=== PATIENT | male | born 1950 | race African-American/Black ===

== ENCOUNTER → 2016-05-25 | Outpatient (CLI) | payer MEDICARE, MEDICAID ==
[~2016-05-25] VITALS: Ht 170.2 cm; Wt 67.6 kg
[~2016-05-25] MED LIST: ALPR1TAB6 PO; AMLO10TA2 PO; AMLO2.5T PO; AMLO5TAB2 PO; AMOX1TAB11 PO; ATOR10TA60 PO; BACL10TA PO; BUPR150T11 PO; CLOT15CR3 TP; HEPARIN PF 500 UNIT/5 ML DISP.SYRIN. IV ONE; HYDR-2672 PO; MUPI22OI2 TP; OMEP20CA5 PO; OMEP40CA5 PO; ONDA4TAB10 SL; SERT50TA PO; TAMS0.4C97 PO; TRAZ50TA15 PO; VALA500T5 PO; Vancomycin Hcl PO; ZOLP10TA PO; flomax PO
[2016-05-25 12:06] VITALS: BP 113/67
[2016-05-25 13:34] VITALS: BP 108/61
[2016-05-25 13:47] VITALS: BP 111/60
== END | disposition home or self-care (01) ==
LOC: OPS 11:24
PROVIDERS: ATTEND Internal Medicine Hematology & Oncology
DX: D46.9 Myelodysplastic syndrome, unspecified (principal)
CPT/HCPCS: 36415; 36430; 86850; 86900; 86901; P9035

== ENCOUNTER → 2016-06-03 | Outpatient (CLI) | payer MEDICARE, MEDICAID ==
[2016-06-03 11:44] VITALS: BP 117/67
[2016-06-03 12:03] VITALS: BP 114/56
[2016-06-03 12:47] VITALS: BP 121/61
== END | disposition home or self-care (01) ==
LOC: OPS 08:51
PROVIDERS: ATTEND Internal Medicine Hematology & Oncology
DX: D46.9 Myelodysplastic syndrome, unspecified (principal)
CPT/HCPCS: 36415; 36430; 85049; 86850; 86900; 86901; P9035

== ENCOUNTER → 2016-06-10 | Outpatient (CLI) | payer MEDICARE, MEDICAID ==
[2016-06-10 14:05] VITALS: BP 116/69
[2016-06-10 14:20] VITALS: BP 113/59
[2016-06-10 14:50] VITALS: BP 118/62
== END | disposition home or self-care (01) ==
LOC: OPS 12:13
PROVIDERS: ATTEND Internal Medicine Hematology & Oncology
DX: D46.9 Myelodysplastic syndrome, unspecified (principal)
CPT/HCPCS: 36415; 36430; 36591; 85049; 86850; 86900; 86901; P9035

== ENCOUNTER → 2016-06-28 | Outpatient (CLI) | payer MEDICARE, MEDICAID ==
[2016-06-28 13:01] VITALS: BP 111/70
[2016-06-28 13:50] VITALS: BP 118/71
[2016-06-28 14:19] VITALS: BP 111/68
== END | disposition home or self-care (01) ==
LOC: OPS 12:32
PROVIDERS: ATTEND Internal Medicine Hematology & Oncology
DX: D46.9 Myelodysplastic syndrome, unspecified (principal)
CPT/HCPCS: 36415; 36430; 85049; 86850; 86900; 86901; P9035

== ENCOUNTER → 2016-07-06 | Outpatient (CLI) | payer MEDICARE, MEDICAID ==
[2016-07-06 08:30] VITALS: BP 123/68
[2016-07-06 10:18] VITALS: BP 124/64
[2016-07-06 10:42] VITALS: BP 115/67
== END | disposition home or self-care (01) ==
LOC: OPS 07:57
PROVIDERS: ATTEND Internal Medicine Hematology & Oncology
DX: D46.9 Myelodysplastic syndrome, unspecified (principal)
CPT/HCPCS: 36415; 36430; 85049; 86850; 86900; 86901; P9035

== ENCOUNTER → 2016-07-19 | Outpatient (CLI) | payer MEDICARE, MEDICAID ==
[~2016-07-19] MED LIST changes: +TRAZ100T12 PO
[2016-07-19 13:40] VITALS: BP 118/67
[2016-07-19 14:35] VITALS: BP 120/66
[2016-07-19 15:12] VITALS: BP 123/62
== END | disposition home or self-care (01) ==
LOC: OPS 12:34
PROVIDERS: ATTEND Internal Medicine Hematology & Oncology
DX: D46.9 Myelodysplastic syndrome, unspecified (principal)
CPT/HCPCS: 36415; 36430; 85049; 86850; 86900; 86901; P9035

== ENCOUNTER → 2016-08-02 | Outpatient (CLI) | payer MEDICARE, MEDICAID ==
[2016-08-02 12:42] VITALS: BP 112/71
[2016-08-02 14:13] VITALS: BP 126/85
== END | disposition home or self-care (01) ==
LOC: OPS 11:32
PROVIDERS: ATTEND Nurse Practitioner Adult Health
DX: D46.9 Myelodysplastic syndrome, unspecified (principal)
CPT/HCPCS: 36415; 36430; 36591; 85049; 86850; 86900; 86901; 96523; P9035

== ENCOUNTER → 2016-08-16 | Outpatient (CLI) | payer MEDICARE, MEDICAID ==
[2016-08-16 11:24] VITALS: BP 122/65
[2016-08-16 13:10] VITALS: BP 133/61
[2016-08-16 13:43] VITALS: BP 139/62
== END | disposition home or self-care (01) ==
LOC: OPS 11:11
PROVIDERS: ATTEND Internal Medicine Hematology & Oncology
DX: D46.9 Myelodysplastic syndrome, unspecified (principal)
CPT/HCPCS: 36415; 36430; 36591; 85049; 86850; 86900; 86901; 96523; P9035

== ENCOUNTER → 2016-09-06 | Outpatient (CLI) | payer MEDICARE, MEDICAID ==
[2016-09-06 14:34] VITALS: BP 139/69
== END | disposition home or self-care (01) ==
LOC: OPS 11:59
PROVIDERS: ATTEND Internal Medicine Hematology & Oncology
DX: D46.9 Myelodysplastic syndrome, unspecified (principal)
CPT/HCPCS: 36415; 36430; 85049; 86850; 86900; 86901; P9035

== ENCOUNTER → 2016-09-20 | Outpatient (CLI) | payer MEDICARE, MEDICAID ==
[2016-09-20 10:58] VITALS: BP 117/65
[2016-09-20 13:32] VITALS: BP 104/58
[2016-09-20 13:39] VITALS: BP 109/54
== END | disposition home or self-care (01) ==
LOC: OPS 10:28
PROVIDERS: ATTEND Internal Medicine Hematology & Oncology
DX: D46.9 Myelodysplastic syndrome, unspecified (principal)
CPT/HCPCS: 36415; 36430; 85049; 86850; 86900; 86901; 96523; P9035

== ENCOUNTER 2016-12-05 21:33 | Inpatient (IN) | payer MEDICARE, MEDICAID ==
[~2016-12-05] VITALS: Ht 172.7 cm; Wt 77.6 kg
[~2016-12-05 21:33] MED LIST changes: -HEPARIN PF 500 UNIT/5 ML DISP.SYRIN. IV ONE; -HYDR-2672 PO; +HYDR-2766 PO
[2016-12-05] MEDS ORDERED: IV NORMAL SALINE 1000ML BAG 1,000 ML IV ONE (22:00)
[2016-12-05 22:19] LABS: BASO # 0.1 x10^3/uL (0.0-0.2); BASO % 1 % (0-3); EOS % 1 % (0-3); LYMPH # 0.7 x10^3/uL (1.0-4.8); LYMPH % 9 % (24-48); MEAN CORPUSCULAR HEMOGLOBIN 39 pg (25-35); MEAN CORPUSCULAR HGB CONC 33 g/dL (31-37); MEAN CORPUSCULAR VOLUME 119 fL (79-100); MONO % 1 % (0-9); NEUT % 88 % (31-73); RED BLOOD COUNT 1.52 x10^6/uL (4.30-5.70); RED CELL DISTRIBUTION WIDTH 22.3 % (11.5-14.5); WHITE BLOOD COUNT 7.5 x10^3/uL (4.0-11.0)
[2016-12-05 22:26] LABS: HEMATOCRIT 18.1 % (39.0-53.0); HEMOGLOBIN 5.9 g/dL (13.0-17.5); PLATELET COUNT 24 x10^3/uL (140-400)
[2016-12-05 22:27] LABS: INR 1.2 (0.8-1.1)
[2016-12-05 22:39] LABS: CALCIUM 9.1 mg/dL (8.5-10.1); CREATININE 1.1 mg/dL (0.7-1.3); GFR 80.5; POTASSIUM 4.3 mmol/L (3.5-5.1)
--- NOTE | 2016-12-05 22:44 | PHYS DOC ---
Past Medical History Past Medical History: Arthritis, GERD, High Cholesterol, Hypertension Additional Past Medical Histor: MDS Past Surgical History: Other Additional Past Surgical Histo: R CHEST PORT PLACEMENT Alcohol Use: Occasionally Drug Use: None Adult General Chief Complaint Chief Complaint: WEAKNESS/GENERALIZED HPI HPI Patient is a 66 year old male with a history of myelodysplastic syndrome who comes in with the complaint of he is concerned that he may be having a GI bleed. He has been feeling weaker over the past day or 2. His stools have been dark to black. He states that hard to tell because he takes iron daily which makes his stools black, but he did note that his hemoglobin dropped from November 29 to December 03 and he is feeling weak like the last time he had a GI bleed. The patient sees Dr. Darden for myelodysplastic syndrome but he is not currently having any treatment. He brings labs with him, on November 29 hemoglobin was 10.3, on December 03 was 8.5. He also has thrombocytopenia with platelet count 8 or 18 depending on the last lab checked. The patient has had blood and platelet transfusions before. PCP Dr. bonilla Review of Systems Review of Systems Constitutional: Denies fever or chills [] Eyes: Denies change in visual acuity, redness, or eye pain [] HENT: Denies nasal congestion or sore throat [] Respiratory: Denies cough or shortness of breath [] Cardiovascular: Denies chest pain GI: Denies abdominal pain, nausea, vomiting, : Denies dysuria or hematuria [] Musculoskeletal: Denies back pain or joint pain [] Integument: Denies rash or skin lesions [] Neurologic: Denies headache, focal weakness or sensory changes [] Current Medications Current Medications Current Medications Medications (Trade) Dose Ordered Sig/Yulia Start Time Stop Time Status Last Admin Dose Admin Sodium Chloride 1,000 ml @ 1,000 mls/hr 1X ONCE 12/05/16 22:00 12/05/16 22:59 DC 12/05/16 22:22 1,000 MLS/HR Allergies Allergies Allergies Coded Allergies Type Severity Reaction Last Updated Verified No Known Drug Allergies 11/30/16 No Physical Exam Physical Exam Constitutional: Well developed, well nourished, no acute distress, non-toxic appearance. Alert, mentating normally. HENT: Normocephalic, atraumatic, bilateral external ears normal, nose normal. [ ] Eyes: conjunctiva normal, no discharge. [] Neck: Normal range of motion, no stridor. [] Cardiovascular:Heart rate regular rhythm, no murmur [] Lungs & Thorax: Bilateral breath sounds clear to auscultation [] Abdomen: Bowel sounds normal, soft, no tenderness, no masses, no pulsatile masses. [] Skin: Warm, dry, no erythema, no rash. [] Extremities: No tenderness, no cyanosis, no clubbing, ROM intact, no edema. [] Neurologic: Alert and oriented X 3, normal motor function, normal sensory function, no focal deficits noted. [] Current Patient Data Vital Signs Vital Signs Date Time Temp Pulse Resp B/P (MAP) Pulse Ox O2 Delivery O2 Flow Rate FiO2 12/05/16 21:33 98.3 134 18 136/74 (94) 99 Room Air 98.3 Lab Values Laboratory Tests Test 12/05/16 22:00 White Blood Count 7.5 x10^3/uL (4.0-11.0) Red Blood Count 1.52 x10^6/uL (4.30-5.70) L Hemoglobin 5.9 g/dL (13.0-17.5) *L Hematocrit 18.1 % (39.0-53.0) *L Mean Corpuscular Volume 119 fL (79-100) H Mean Corpuscular Hemoglobin 39 pg (25-35) H Mean Corpuscular Hemoglobin Concent 33 g/dL (31-37) Red Cell Distribution Width 22.3 % (11.5-14.5) H Platelet Count 24 x10^3/uL (140-400) *L Neutrophils (%) (Auto) 88 % (31-73) H Lymphocytes (%) (Auto) 9 % (24-48) L Monocytes (%) (Auto) 1 % (0-9) Eosinophils (%) (Auto) 1 % (0-3) Basophils (%) (Auto) 1 % (0-3) Neutrophils # (Auto) 6.6 x10^3uL (1.8-7.7) Lymphocytes # (Auto) 0.7 x10^3/uL (1.0-4.8) L Monocytes # (Auto) 0.0 x10^3/uL (0.0-1.1) Eosinophils # (Auto) 0.1 x10^3/uL (0.0-0.7) Basophils # (Auto) 0.1 x10^3/uL (0.0-0.2) Platelet Estimate Pending Prothrombin Time 14.0 SEC (11.7-14.0) Prothrombin Time INR 1.2 (0.8-1.1) H PTT 29 SEC (24-38) Sodium Level 137 mmol/L (136-145) Potassium Level 4.3 mmol/L (3.5-5.1) Chloride Level 100 mmol/L (98-107) Carbon Dioxide Level 27 mmol/L (21-32) Anion Gap 10 (6-14) Blood Urea Nitrogen 44 mg/dL (8-26) H Creatinine 1.1 mg/dL (0.7-1.3) Estimated GFR (Cockcroft-Gault) 80.5 BUN/Creatinine Ratio 40 (6-20) H Glucose Level 200 mg/dL (70-99) H Calcium Level 9.1 mg/dL (8.5-10.1) Total Bilirubin 0.3 mg/dL (0.2-1.0) Aspartate Amino Transferase (AST) 18 U/L (15-37) Alanine Aminotransferase (ALT) 19 U/L (16-63) Alkaline Phosphatase 87 U/L (46-116) Total Protein 6.7 g/dL (6.4-8.2) Albumin 3.3 g/dL (3.4-5.0) L Albumin/Globulin Ratio 1.0 (1.0-1.7) Laboratory Tests 12/05/16 22:00 Laboratory Tests 12/05/16 22:00 EKG EKG Twelve-lead EKG read by me. Sinus tachycardia. Heart rate 128. There are no acute ST or T wave changes indicative of ischemia or infarction. No STEMI. 2142 [] Radiology/Procedures Radiology/Procedures [] Course & Med Decision Making Course & Med Decision Making Pertinent Labs and Imaging studies reviewed. (See chart for details) 66-year-old male with a history of myelodysplastic syndrome, chronic anemia and thrombocytopenia, presents with black stools, weakness, tachycardia. He was given a liter bolus. We were called with critical values for his hemoglobin of 5.9. I discussed blood transfusion with the patient. He has had blood and platelet transfusions before and is willing to sign a consent. I ordered 4 units of packed red blood cells and I also spoke with blood bank about getting a platelet transfusion for the patient. They will get that ordered. I spoke with the pharmacist about getting Protonix bolus and infusion started, he will get that ordered. I discussed the case with who will admit the patient. I wrote bridge orders. We will send him to the ICU due to his marked anemia, tachycardia, need for multiple transfusions of blood products. Critical care time 35 minutes including evaluation of serious GI bleed, ordering blood replacement and platelets, discussion with pharmacist, admitting physician, documentation, writing orders, review of previous records and charts. [] Dragon Disclaimer Dragon Disclaimer This electronic medical record was generated, in whole or in part, using a voice recognition dictation system. Departure Departure Impression: Primary Impression: GI bleed Additional Impression: Anemia Disposition: 09 ADMITTED INPATIENT Admitting Physician: Marissa Hernández Condition: GUARDED Referrals: IFEANYI BONILLA MD (PCP) Problem Qualifiers DIVINE SHEEHAN MD Dec 05, 2016 22:44
[2016-12-05 22:45] LABS: ALBUMIN 3.3 g/dL (3.4-5.0); TOTAL BILIRUBIN 0.3 mg/dL (0.2-1.0); TOTAL PROTEIN 6.7 g/dL (6.4-8.2)
[2016-12-05] MEDS ORDERED: PANTOPRAZOLE IV PUSH 40 MG VIAL. IVP ONE (23:15)
[2016-12-05] MEDS: PANTOPRAZOLE SODIUM IV 80 MG in IV NORMAL SALINE 100ML 100 ML IV SCH (23:19)
[2016-12-05 23:59] VITALS: BP 120/62
[2016-12-06] VITALS (27 sets, daily range): BP systolic 105–151; BP diastolic 59–98
[2016-12-06] MEDS: HYDROcodone/APAP 10/325 1 TAB TABLET PO PRN ×2 (01:26→21:15)
--- NOTE | 2016-12-06 02:48 | ACF ---
Admission Forms Criteria GASTROINTESTINAL BLEEDING Clinical Indications for Inpatient Care (Place 'X' for any and all applicable criteria): Ongoing inpatient care may be indicated for gastrointestinal bleeding with ANY ONE of the following (4)(20)(21)(22)(23)(24): GASTROINTESTINAL BLEEDING Clinical Indications for Inpatient Care (Place 'X' for any and all applicable criteria): Ongoing inpatient care may be indicated for gastrointestinal bleeding with ANY ONE of the following (4)(20)(21)(22)(23)(24): [ X]I. Active bleeding (eg, fresh voluminous blood in emesis or nasogastric aspirate, or per rectum) [ ]II. Hemodynamic instability [ ]III. Anticoagulation therapy or coagulopathy ((eg, advanced liver disease, irreversible anticoagulation) [ ]IV. Ischemic colitis (22) [ ]V. Endoscopy showing arterial bleeding, adherent clot, nonbleeding visible vessel, varices, flat red spots, ulcer size greater than 2 cm, or portal hypertensive gastropathy [ ]. High-risk low platelet count [ ]VII. Anemia requiring inpatient care as indicated by ANY ONE of the following a)[ ] Cognitive impairment b)[ ] Syncope c)[ ] Heart failure d)[ ] Chest pain e)[ ] Dyspnea f)[ ] Other findings suggesting inadequate perfusion (eg, peripheral or myocardial ischemia, end organ dysfunction) [ ]VIII. High-risk low platelet count [ ]IX. Suspected variceal cause of bleeding as indicated by ANY ONE of the following(27)(28): a)[ ] Known varices b)[ ] Hepatomegaly or splenomegaly c)[ ] Ascites d)[ ] Jaundice or scleral icterus e)[ ] History of liver disease (eg, cirrhosis) f)[ ] Physical findings of portal hypertension (eg, caput medusa) g)[ ] Comorbid disorder indicating risk for portal vein thrombosis (eg , abdominal surgery, sepsis, shock, exchange transfusion, prior umbilical vein catheterization) Extended stay may be needed until ALL of the following are present(20)(96)(47): [ ]a) Hemodynamic stability [ ]b) No evidence of active bleeding (eg, stable Hematocrit) [ ]c) Platelet count, prothrombin time, and partial thromboplastin time acceptable for next level of care [ ]d) Surgical or other acute intervention not needed [ ]e) Oral hydration and diet tolerated The original [facility] [employer] content created by [employer] has been revised. The portions of the content which have been revised are identified through the use of italic text or in bold, and [facility] has neither reviewed nor approved the modified material. All other unmodified content is copyright [facility]. Please see references footnoted in the original [facility] edition 2016 ]I. Active bleeding (eg, fresh voluminous blood in emesis or nasogastric aspirate, or per rectum) [ ]II. Hemodynamic instability [ ]III. Anticoagulation therapy or coagulopathy ((eg, advanced liver disease, irreversible anticoagulation) [ ]IV. Ischemic colitis (22) [ ]V. Endoscopy showing arterial bleeding, adherent clot, nonbleeding visible vessel, varices, flat red spots, ulcer size greater than 2 cm, or portal hypertensive gastropathy [ ]. High-risk low platelet count [ ]VII. Anemia requiring inpatient care as indicated by ANY ONE of the following a)[ ] Cognitive impairment b)[ ] Syncope c)[ ] Heart failure d)[ ] Chest pain e)[ ] Dyspnea f)[ ] Other findings suggesting inadequate perfusion (eg, peripheral or myocardial ischemia, end organ dysfunction) [ ]VIII. High-risk low platelet count [ ]IX. Suspected variceal cause of bleeding as indicated by ANY ONE of the following(27)(28): a)[ ] Known varices b)[ ] Hepatomegaly or splenomegaly c)[ ] Ascites d)[ ] Jaundice or scleral icterus e)[ ] History of liver disease (eg, cirrhosis) f)[ ] Physical findings of portal hypertension (eg, caput medusa) g)[ ] Comorbid disorder indicating risk for portal vein thrombosis (eg , abdominal surgery, sepsis, shock, exchange transfusion, prior umbilical vein catheterization) Extended stay may be needed until ALL of the following are present(20)(66)(47): [ ]a) Hemodynamic stability [ ]b) No evidence of active bleeding (eg, stable Hematocrit) [ ]c) Platelet count, prothrombin time, and partial thromboplastin time acceptable for next level of care [ ]d) Surgical or other acute intervention not needed [ ]e) Oral hydration and diet tolerated The original [facility] content created by [employer] has been revised. The portions of the content which have been revised are identified through the use of italic text or in bold, and [facility] has neither reviewed nor approved the modified material. All other unmodified content is copyright [facility]. Please see references footnoted in the original [facility] edition 2016 Admission Criteria Met?: Yes PARISH MAGUIRE Dec 06, 2016 02:48
[2016-12-06 05:18] LABS: BASO # 0.1 x10^3/uL (0.0-0.2); BASO % 1 % (0-3); EOS % 1 % (0-3); HEMATOCRIT 22.6 % (39.0-53.0); HEMOGLOBIN 7.7 g/dL (13.0-17.5); LYMPH # 1.1 x10^3/uL (1.0-4.8); LYMPH % 21 % (24-48); MEAN CORPUSCULAR HEMOGLOBIN 36 pg (25-35); MEAN CORPUSCULAR HGB CONC 34 g/dL (31-37); MEAN CORPUSCULAR VOLUME 105 fL (79-100); MONO % 4 % (0-9); NEUT % 73 % (31-73); RED BLOOD COUNT 2.16 x10^6/uL (4.30-5.70); RED CELL DISTRIBUTION WIDTH 24.1 % (11.5-14.5)
[2016-12-06 05:21] LABS: PLATELET COUNT 19 x10^3/uL (140-400)
[2016-12-06 06:20] LABS: % BASOS 2 % (0-3); % EOS 3 % (0-5); NUCLEATED RBC 14
[2016-12-06 06:21] LABS: ANISOCYTOSIS PRESENT
[2016-12-06 06:24] LABS: PLT ESTIMATE DECREASED (ADEQUATE)
--- NOTE | 2016-12-06 06:42 | EKG ---
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
[2016-12-06] MEDS ORDERED: PANTOPRAZOLE 40 MG TABLET.DR. PO SCH (07:30)
[2016-12-06] MEDS: PANTOPRAZOLE SODIUM IV 80 MG in IV NORMAL SALINE 100ML 100 ML IV SCH (08:12)
[2016-12-06] MEDS: amLODIPine BESYLATE 5 MG TABLET PO SCH (08:54)
[2016-12-06] MEDS: TAMSULOSIN 0.4 MG CAP.ER.24H. PO SCH (08:54)
[2016-12-06] MEDS: ALPRAZolam 1 MG TABLET PO PRN ×2 (08:54→21:14)
[2016-12-06] MEDS: SERTRALINE 50 MG TABLET. PO SCH (08:54)
[2016-12-06] MEDS: BACLOFEN 10 MG TABLET. PO SCH ×3 (08:55→21:00)
--- NOTE | 2016-12-06 09:43 | PDOC2 ---
GI CONSULT Reason For Consult: GI Bleed HPI: HPI: 66 y/o male w/ h/o MDS evaluated in ER for weakness, admitted to ICU. Hgb was 5.9, now 7.7 after transfusions. Per ER note, Hgb was 10.3 on 11/29 and 8.5 on . Additional labs: plt 19, INR 1.2, BUN 44, Cr 1.1, glucose 200. Dr. Su has seen for similar in the past. Usually has dark stools with iron, perhaps a little more "sticky" consistency over the past 2 days. Long h/o poor appetite, no change in this, also denies weight loss. However, has had vomiting over the past 2 days, usually around the time of stooling. Denies hematemesis. No abdominal pain. (GI-sanchez has h/o GERD on omeprazole QD w/ last EGD in 2012; biopsies negative for H. pylori at that time. No NSAIDs or ASA, takes hydrocodone for pain. H/o Hep C treated w/ Cheryl. Last colonoscopy also in 2012 w/ adenomatous polyps. Has had C Diff in the past. NPO on PPI drip, C Diff ordered/uncollected. PMH: PMH: MDS (last chemo in 2015)/pancytopenia, HTN, HLD, GERD, Hep C (treated), C Diff, OA, tonsillectomy, eye surgery, bone marrow biopsy FH: Family History: Cancer Social History: Smoke: No ALCOHOL: occassional Drugs: None ROS: GEN: Denies fevers, chills, sweats HEENT: Denies blurred vision, sore throat CV: Denies chest pain RESP: Denies shortness of air, cough GI: Per HPI : Denies hematuria, dysuria ENDO: Denies weight changes NEURO: Denies confusion, dizziness MSK: +weakness SKIN: Denies jaundice, pruritus Vitals: Vitals: Vital Signs Date Time Temp Pulse Resp B/P (MAP) Pulse Ox O2 Delivery O2 Flow Rate FiO2 12/06/16 08:54 85 134/69 12/06/16 08:42 98.7 12 98.7 12/06/16 06:00 100 Room Air Labs: Labs: Laboratory Tests Test 12/05/16 22:00 12/06/16 04:30 White Blood Count 7.5 x10^3/uL (4.0-11.0) 5.0 x10^3/uL (4.0-11.0) Red Blood Count 1.52 x10^6/uL (4.30-5.70) 2.16 x10^6/uL (4.30-5.70) Hemoglobin 5.9 g/dL (13.0-17.5) 7.7 g/dL (13.0-17.5) Hematocrit 18.1 % (39.0-53.0) 22.6 % (39.0-53.0) Mean Corpuscular Volume 119 fL (79-100) 105 fL (79-100) Mean Corpuscular Hemoglobin 39 pg (25-35) 36 pg (25-35) Mean Corpuscular Hemoglobin Concent 33 g/dL (31-37) 34 g/dL (31-37) Red Cell Distribution Width 22.3 % (11.5-14.5) 24.1 % (11.5-14.5) Platelet Count 24 x10^3/uL (140-400) 19 x10^3/uL (140-400) Neutrophils (%) (Auto) 88 % (31-73) 73 % (31-73) Lymphocytes (%) (Auto) 9 % (24-48) 21 % (24-48) Monocytes (%) (Auto) 1 % (0-9) 4 % (0-9) Eosinophils (%) (Auto) 1 % (0-3) 1 % (0-3) Basophils (%) (Auto) 1 % (0-3) 1 % (0-3) Neutrophils # (Auto) 6.6 x10^3uL (1.8-7.7) 3.6 x10^3uL (1.8-7.7) Lymphocytes # (Auto) 0.7 x10^3/uL (1.0-4.8) 1.1 x10^3/uL (1.0-4.8) Monocytes # (Auto) 0.0 x10^3/uL (0.0-1.1) 0.2 x10^3/uL (0.0-1.1) Eosinophils # (Auto) 0.1 x10^3/uL (0.0-0.7) 0.1 x10^3/uL (0.0-0.7) Basophils # (Auto) 0.1 x10^3/uL (0.0-0.2) 0.1 x10^3/uL (0.0-0.2) Segmented Neutrophils % 63 % (35-66) Band Neutrophils % 5 % (0-9) Lymphocytes % 19 % (24-48) Atypical Lymphocytes % (Manual) 5 % (0-0) Monocytes % 2 % (0-10) Eosinophils % 3 % (0-5) Basophils % 2 % (0-3) Myelocytes % 1 % (0-0) Nucleated Red Blood Cells 14 Platelet Estimate Decreased (ADEQUATE) Basophilic Stippling Present Anisocytosis Present Macrocytosis Present Prothrombin Time 14.0 SEC (11.7-14.0) Prothromb Time International Ratio 1.2 (0.8-1.1) Activated Partial Thromboplast Time 29 SEC (24-38) Sodium Level 137 mmol/L (136-145) Potassium Level 4.3 mmol/L (3.5-5.1) Chloride Level 100 mmol/L (98-107) Carbon Dioxide Level 27 mmol/L (21-32) Anion Gap 10 (6-14) Blood Urea Nitrogen 44 mg/dL (8-26) Creatinine 1.1 mg/dL (0.7-1.3) Estimated GFR (Cockcroft-Gault) 80.5 BUN/Creatinine Ratio 40 (6-20) Glucose Level 200 mg/dL (70-99) Calcium Level 9.1 mg/dL (8.5-10.1) Total Bilirubin 0.3 mg/dL (0.2-1.0) Aspartate Amino Transf (AST/SGOT) 18 U/L (15-37) Alanine Aminotransferase (ALT/SGPT) 19 U/L (16-63) Alkaline Phosphatase 87 U/L (46-116) Total Protein 6.7 g/dL (6.4-8.2) Albumin 3.3 g/dL (3.4-5.0) Albumin/Globulin Ratio 1.0 (1.0-1.7) Allergies: Coded Allergies: No Known Drug Allergies (Unverified , 11/30/16) Medications: Current Medications Medications (Trade) Dose Ordered Sig/Yulia Route PRN Reason Start Time Stop Time Status Last Admin Dose Admin Sodium Chloride 1,000 ml @ 1,000 mls/hr 1X ONCE IV 12/05/16 22:00 12/05/16 22:59 DC 12/05/16 22:22 Pantoprazole Sodium (Protonix Vial) 40 mg ONCE ONCE IVP 12/05/16 23:15 12/05/16 23:16 DC 12/05/16 23:23 Pantoprazole Sodium 80 mg/ Sodium Chloride 100 ml @ 10 mls/hr Q10H IV 12/05/16 23:15 12/06/16 08:12 Alprazolam (Xanax) 1 mg PRN BID PRN PO ANXIETY 12/06/16 01:15 12/06/16 08:54 Amlodipine Besylate (Norvasc) 5 mg DAILY PO 12/06/16 09:00 12/06/16 08:54 Baclofen (Lioresal) 10 mg TID PO 12/06/16 09:00 12/06/16 08:55 Acetaminophen/ Hydrocodone Bitart (Lortab 10/325) 1 tab PRN Q6HRS PRN PO PAIN 12/06/16 01:15 12/06/16 01:26 Sertraline HCl (Zoloft) 50 mg DAILY PO 12/06/16 09:00 12/06/16 08:54 Tamsulosin HCl (Flomax) 0.4 mg DAILY PO 12/06/16 09:00 12/06/16 08:54 Imaging: Imaging: - PE: GEN: NAD HEENT: Atraumatic, PERRL LUNGS: CTAB anteriorly HEART: RRR ABD: NABS, S/ND/NT EXTREMITY: No edema SKIN: No rashes, no jaundice NEURO/PSYCH: A & O 3 A/P: A/P: MDS, anemia, thrombocytopenia Weakness Dark stools, vomiting ---> none since admission -h/o dark stools attributed to iron, perhaps change in consistency x 2 days -vomiting w/ stooling x 2 days GERD on PPI -previous EGD 2012, gastric biopsy negative for H. pylori Decreased appetite -not a new symptom, denies weight loss CRC screen, h/o adenomatous polyps -last colonoscopy 2012 H/o C Diff H/o Hep C, treated -- Agree w/ transfusions, PPI. Await C Diff. Will review w/ Dr. Su - ?try clear liquids, no current plans for endoscopy. KULWANT SEBASTIAN Dec 06, 2016 09:43
[2016-12-06 11:42] LABS: HEMATOCRIT 28.9 % (39.0-53.0); HEMOGLOBIN 9.9 g/dL (13.0-17.5); RED BLOOD COUNT 3.01 x10^6/uL (4.30-5.70); RED CELL DISTRIBUTION WIDTH 22.1 % (11.5-14.5); WHITE BLOOD COUNT 4.8 x10^3/uL (4.0-11.0)
--- NOTE | 2016-12-06 13:29 | PDOC2 ---
CONSULT Date of Consult Date of Consult DATE: 12/06/16 TIME: 13:20 Past Medical History Cardiovascular: HTN, Hyperlipidemia Pulmonary: Pneumonia GI: GERD, GI bleed, Other Heme/Onc: Other Hepatobiliary: Hep A/B/C Musculoskeletal: low back pain, Osteoarthritis Past Surgical History Past Surgical History: Cataract Removal, Tonsillectomy Family History Family History: Cancer, Diabetes, Hypertension, Stroke Social History No ALCOHOL: occassional Drugs: None Lives: with Family Current Problem List Problem List Problems Medical Problems: (1) Anemia Status: Acute (2) GI bleed Status: Acute Current Medications Current Medications Current Medications Sodium Chloride 1,000 ml @ 1,000 mls/hr 1X ONCE IV Last administered on 22:22; Start 12/05/16 at 22:00; Stop 12/05/16 at 22:59; Status DC Pantoprazole Sodium (Protonix Vial) 40 mg ONCE ONCE IVP Last administered on 23:23; Start 12/05/16 at 23:15; Stop 12/05/16 at 23:16; Status DC Pantoprazole Sodium 80 mg/ Sodium Chloride 100 ml @ 10 mls/hr Q10H IV Last administered on 12/06/16 08:12; Start 12/05/16 at 23:15 Alprazolam (Xanax) 1 mg PRN BID PRN PO ANXIETY Last administered on 12/06/16 08:54; Start 12/06/16 at 01:15 Amlodipine Besylate (Norvasc) 5 mg DAILY PO Last administered on 12/06/16 08: 54; Start 12/06/16 at 09:00 Atorvastatin Calcium (Lipitor) 10 mg HS PO ; Start 12/06/16 at 21:00 Baclofen (Lioresal) 10 mg TID PO Last administered on 12/06/16 08:55; Start at 09:00 Acetaminophen/ Hydrocodone Bitart (Lortab 10/325) 1 tab PRN Q6HRS PRN PO PAIN Last administered on 12/06/16 01:26; Start 12/06/16 at 01:15 Sertraline HCl (Zoloft) 50 mg DAILY PO Last administered on 12/06/16 08:54; Start 12/06/16 at 09:00 Tamsulosin HCl (Flomax) 0.4 mg DAILY PO Last administered on 12/06/16t 08:54; Start 12/06/16 at 09:00 Trazodone HCl (Desyrel) 100 mg HS PO ; Start 12/06/16 at 21:00 Pantoprazole Sodium (Protonix) 40 mg DAILYAC PO ; Start 12/06/16 at 07:30; Status Cancel Active Scripts Active Zoloft (Sertraline Hcl) 50 Mg Tablet 1 Tab PO DAILY Valtrex (Valacyclovir Hcl) 500 Mg Tablet 1,000 Mg PO BID 28 Days Reported Trazodone Hcl 100 Mg Tablet 100 Mg PO HS Baclofen 10 Mg Tablet 1 Tab PO TID Amlodipine Besylate 5 Mg Tablet 5 Mg PO DAILY Flomax (Tamsulosin Hcl) 0.4 Mg Cap.er.24h 1 Cap PO DAILY Omeprazole 40 Mg Capsule.dr 1 Cap PO DAILY Hydrocodone-Apap 10-325 (Hydrocodone Bit/Acetaminophen) 1 Each Tablet 10- 325 Mg PO PRN Q6HRS PRN Atorvastatin Calcium 10 Mg Tablet 10 Mg PO DAILY Alprazolam 1 Mg Tablet 1 Mg PO PRN BID PRN Allergies Allergies: Coded Allergies: No Known Drug Allergies (Unverified , 11/30/16) Vitals VITALS Vital Signs Date Time Temp Pulse Resp B/P (MAP) Pulse Ox O2 Delivery O2 Flow Rate FiO2 12/06/16 12:00 98.3 82 17 122/66 (84) 100 Room Air 98.3 Labs Labs Laboratory Tests Test 12/05/16 22:00 12/06/16 04:30 12/06/16 11:30 White Blood Count 7.5 x10^3/uL (4.0-11.0) 5.0 x10^3/uL (4.0-11.0) 4.8 x10^3/uL (4.0-11.0) Red Blood Count 1.52 x10^6/uL (4.30-5.70) 2.16 x10^6/uL (4.30-5.70) 3.01 x10^6/uL (4.30-5.70) Hemoglobin 5.9 g/dL (13.0-17.5) 7.7 g/dL (13.0-17.5) 9.9 g/dL (13.0-17.5) Hematocrit 18.1 % (39.0-53.0) 22.6 % (39.0-53.0) 28.9 % (39.0-53.0) Mean Corpuscular Volume 119 fL (79-100) 105 fL (79-100) 96 fL (79-100) Mean Corpuscular Hemoglobin 39 pg (25-35) 36 pg (25-35) 33 pg (25-35) Mean Corpuscular Hemoglobin Concent 33 g/dL (31-37) 34 g/dL (31-37) 34 g/dL (31-37) Red Cell Distribution Width 22.3 % (11.5-14.5) 24.1 % (11.5-14.5) 22.1 % (11.5-14.5) Platelet Count 24 x10^3/uL (140-400) 19 x10^3/uL (140-400) 52 x10^3/uL (140-400) Neutrophils (%) (Auto) 88 % (31-73) 73 % (31-73) Lymphocytes (%) (Auto) 9 % (24-48) 21 % (24-48) Monocytes (%) (Auto) 1 % (0-9) 4 % (0-9) Eosinophils (%) (Auto) 1 % (0-3) 1 % (0-3) Basophils (%) (Auto) 1 % (0-3) 1 % (0-3) Neutrophils # (Auto) 6.6 x10^3uL (1.8-7.7) 3.6 x10^3uL (1.8-7.7) Lymphocytes # (Auto) 0.7 x10^3/uL (1.0-4.8) 1.1 x10^3/uL (1.0-4.8) Monocytes # (Auto) 0.0 x10^3/uL (0.0-1.1) 0.2 x10^3/uL (0.0-1.1) Eosinophils # (Auto) 0.1 x10^3/uL (0.0-0.7) 0.1 x10^3/uL (0.0-0.7) Basophils # (Auto) 0.1 x10^3/uL (0.0-0.2) 0.1 x10^3/uL (0.0-0.2) Segmented Neutrophils % 63 % (35-66) Band Neutrophils % 5 % (0-9) Lymphocytes % 19 % (24-48) Atypical Lymphocytes % (Manual) 5 % (0-0) Monocytes % 2 % (0-10) Eosinophils % 3 % (0-5) Basophils % 2 % (0-3) Myelocytes % 1 % (0-0) Nucleated Red Blood Cells 14 Platelet Estimate Decreased (ADEQUATE) Basophilic Stippling Present Anisocytosis Present Macrocytosis Present Prothrombin Time 14.0 SEC (11.7-14.0) Prothromb Time International Ratio 1.2 (0.8-1.1) Activated Partial Thromboplast Time 29 SEC (24-38) Sodium Level 137 mmol/L (136-145) Potassium Level 4.3 mmol/L (3.5-5.1) Chloride Level 100 mmol/L (98-107) Carbon Dioxide Level 27 mmol/L (21-32) Anion Gap 10 (6-14) Blood Urea Nitrogen 44 mg/dL (8-26) Creatinine 1.1 mg/dL (0.7-1.3) Estimated GFR (Cockcroft-Gault) 80.5 BUN/Creatinine Ratio 40 (6-20) Glucose Level 200 mg/dL (70-99) Calcium Level 9.1 mg/dL (8.5-10.1) Total Bilirubin 0.3 mg/dL (0.2-1.0) Aspartate Amino Transf (AST/SGOT) 18 U/L (15-37) Alanine Aminotransferase (ALT/SGPT) 19 U/L (16-63) Alkaline Phosphatase 87 U/L (46-116) Total Protein 6.7 g/dL (6.4-8.2) Albumin 3.3 g/dL (3.4-5.0) Albumin/Globulin Ratio 1.0 (1.0-1.7) Laboratory Tests Test 12/05/16 22:00 12/06/16 04:30 12/06/16 11:30 White Blood Count 7.5 x10^3/uL (4.0-11.0) 5.0 x10^3/uL (4.0-11.0) 4.8 x10^3/uL (4.0-11.0) Red Blood Count 1.52 x10^6/uL (4.30-5.70) 2.16 x10^6/uL (4.30-5.70) 3.01 x10^6/uL (4.30-5.70) Hemoglobin 5.9 g/dL (13.0-17.5) 7.7 g/dL (13.0-17.5) 9.9 g/dL (13.0-17.5) Hematocrit 18.1 % (39.0-53.0) 22.6 % (39.0-53.0) 28.9 % (39.0-53.0) Mean Corpuscular Volume 119 fL (79-100) 105 fL (79-100) 96 fL (79-100) Mean Corpuscular Hemoglobin 39 pg (25-35) 36 pg (25-35) 33 pg (25-35) Mean Corpuscular Hemoglobin Concent 33 g/dL (31-37) 34 g/dL (31-37) 34 g/dL (31-37) Red Cell Distribution Width 22.3 % (11.5-14.5) 24.1 % (11.5-14.5) 22.1 % (11.5-14.5) Platelet Count 24 x10^3/uL (140-400) 19 x10^3/uL (140-400) 52 x10^3/uL (140-400) Neutrophils (%) (Auto) 88 % (31-73) 73 % (31-73) Lymphocytes (%) (Auto) 9 % (24-48) 21 % (24-48) Monocytes (%) (Auto) 1 % (0-9) 4 % (0-9) Eosinophils (%) (Auto) 1 % (0-3) 1 % (0-3) Basophils (%) (Auto) 1 % (0-3) 1 % (0-3) Neutrophils # (Auto) 6.6 x10^3uL (1.8-7.7) 3.6 x10^3uL (1.8-7.7) Lymphocytes # (Auto) 0.7 x10^3/uL (1.0-4.8) 1.1 x10^3/uL (1.0-4.8) Monocytes # (Auto) 0.0 x10^3/uL (0.0-1.1) 0.2 x10^3/uL (0.0-1.1) Eosinophils # (Auto) 0.1 x10^3/uL (0.0-0.7) 0.1 x10^3/uL (0.0-0.7) Basophils # (Auto) 0.1 x10^3/uL (0.0-0.2) 0.1 x10^3/uL (0.0-0.2) Segmented Neutrophils % 63 % (35-66) Band Neutrophils % 5 % (0-9) Lymphocytes % 19 % (24-48) Atypical Lymphocytes % (Manual) 5 % (0-0) Monocytes % 2 % (0-10) Eosinophils % 3 % (0-5) Basophils % 2 % (0-3) Myelocytes % 1 % (0-0) Nucleated Red Blood Cells 14 Platelet Estimate Decreased (ADEQUATE) Basophilic Stippling Present Anisocytosis Present Macrocytosis Present Prothrombin Time 14.0 SEC (11.7-14.0) Prothromb Time International Ratio 1.2 (0.8-1.1) Activated Partial Thromboplast Time 29 SEC (24-38) Sodium Level 137 mmol/L (136-145) Potassium Level 4.3 mmol/L (3.5-5.1) Chloride Level 100 mmol/L (98-107) Carbon Dioxide Level 27 mmol/L (21-32) Anion Gap 10 (6-14) Blood Urea Nitrogen 44 mg/dL (8-26) Creatinine 1.1 mg/dL (0.7-1.3) Estimated GFR (Cockcroft-Gault) 80.5 BUN/Creatinine Ratio 40 (6-20) Glucose Level 200 mg/dL (70-99) Calcium Level 9.1 mg/dL (8.5-10.1) Total Bilirubin 0.3 mg/dL (0.2-1.0) Aspartate Amino Transf (AST/SGOT) 18 U/L (15-37) Alanine Aminotransferase (ALT/SGPT) 19 U/L (16-63) Alkaline Phosphatase 87 U/L (46-116) Total Protein 6.7 g/dL (6.4-8.2) Albumin 3.3 g/dL (3.4-5.0) Albumin/Globulin Ratio 1.0 (1.0-1.7) Assessment/Plan Assessment/Plan DATE OF CONSULTATION: 12/06/2016 MEDICAL ONCOLOGY CONSULTATION REPORT: REQUESTING PHYSICIAN: Marissa Hernández M.D. REASON FOR CONSULTATION: MDS and severe anemia HISTORY OF PRESENT ILLNESS: The patient is a 66-year-old gentleman, who has history of hepatitis C and splenomegaly. In view of persistent pancytopenia, he underwent a bone marrow aspiration and biopsy on 01/14/2015, which revealed myelodysplastic syndrome with trisomy 8 and translocation 1;16. In view of severe thrombocytopenia of 19,000 platelets, he was started on chemotherapy with Vidaza on 06/30/2015. Chemo with vidaza started 06/30/15. He was admitted to [facility] for GI bleed and discharged on 07/28/15. s/p C6 completed 12/17/15. Decreased dose of vidaza to 65 mg/m2 with C5 due to infection. s/p C9 of vidaza 04/19/16. No response, I d/c'ed vidaza. He is on observation He was admitted 09/21/2015 with fever and discharged. He was admitted on 12/31/15 with severe anemia 5.9 and fever. He was diagnosed with C-diff. He was admitted on 01/15/2016 with following complaints: On 01/12/16 noticed trouble with writing and speaking. Intermittently he has trouble getting his words out and he has had trouble writing. Improved after discontinuing Wellbutrin. He was admitted 12/05/16 with severe anemia with Hb 5.9. He was evaluated in ER for weakness, admitted to ICU. Hgb was 5.9, now 7.7 after transfusions. Per ER note, Hgb was 10.3 on 11/29 and 8.5 on 12/03. Additional labs: plt 19, INR 1.2, BUN 44, Cr 1.1, glucose 200. Dr. Su has seen for similar in the past. Usually has dark stools with iron, perhaps a little more "sticky" consistency over the past 2 days. Long h/o poor appetite, no change in this, also denies weight loss. However, has had vomiting over the past 2 days, usually around the time of stooling. Denies hematemesis. No abdominal pain. (GI-sanchez has h/o GERD on omeprazole QD w/ last EGD in 2012; biopsies negative for H. pylori at that time. No NSAIDs or ASA, takes hydrocodone for pain. H/o Hep C treated w/ Harvoni. Last colonoscopy also in 2012 w/ adenomatous polyps. Has had C Diff in the past. He denies abdominal pain. No hematemesis. No hemoptysis. No hematuria. PAST MEDICAL HISTORY: Arthritis, hepatitis C, GERD, hypercholesterolemia, hypertension, and MDS as described above. SOCIAL HISTORY: He drinks alcohol occasionally. FAMILY HISTORY: Negative for myelodysplastic syndrome. REVIEW OF SYSTEMS: A 14-point review of system was performed. Pertinent positives are mentioned in the history of present illness. Rest of the system review is negative. PHYSICAL EXAMINATION: GENERAL APPEARANCE: The patient is a 66-year-old gentleman, who is in no acute cardiorespiratory distress. VITAL SIGNS: reviewed. HEENT: Head, atraumatic and normocephalic. Eyes, no icterus. NECK: Supple. CHEST: Bilaterally symmetrical. HEART: S1 and S2 normal. ABDOMEN: Soft and nontender. CENTRAL NERVOUS SYSTEM: No focal deficits. LYMPHATICS: No lymphadenopathy. SKIN: No rashes. PSYCHOLOGIC: Mood and affect are appropriate. MUSCULOSKELETAL: No joint effusions. IMPRESSION AND PLAN: 1. Myelodysplastic syndrome. He was started on chemotherapy with Vidaza on 06/30/2015. Chemo with vidaza started 06/30/15. s/p C9 of vidaza 04/19/16. No response, I d/c'ed vidaza. He is on observation. 2.Anemia I agree to monitor hemoglobin and transfuse as needed. Hb 5.9 12/05/16, s/p 4 PRBC, Hb now 9.9. Appreciate GI consult. 3. Thrombocytopenia, secondary to myelodysplastic syndrome and splenomegaly due to hepatitis C. Plt now 52. 4. Neutropenia, secondary to myelodysplastic syndrome. WBC now 4.8. Monitor I d/w OSITO PERDUE MD Dec 06, 2016 13:29
--- NOTE | 2016-12-06 16:27 | PDOC1 ---
History and Physical Date of Admission Date of Admission DATE: 12/06/16 TIME: 16:21 Identification/Chief Complaint Chief Complaint weakness Problems: Source Source: Chart review, Patient History of Present Illness History of Present Illness 66 Y/O wih known Myelodysplastic syndrome present to ER for weakness, admitted to ICU. Hgb was 5.9, now 7.7 after transfusions. Per ER note, Hgb was 10.3 on 11/29 and 8.5 on 12/03. Additional labs: plt 19, INR 1.2, BUN 44, Cr 1.1, glucose 200. Dr. Su has seen for similar in the past. Usually has dark stools with iron, perhaps a little more "sticky" consistency over the past 2 days. Long h/o poor appetite, no change in this, also denies weight loss. However, has had vomiting over the past 2 days, usually around the time of stooling. Denies hematemesis. No abdominal pain. (GI-sanchez has h/o GERD on omeprazole QD w/ last EGD in 2012; biopsies negative for H. pylori at that time. No NSAIDs or ASA, takes hydrocodone for pain. H/o Hep C treated w/ Cheryl. Last colonoscopy also in 2012 w/ adenomatous polyps. Has had C Diff in the past. He denies abdominal pain. No hematemesis. No hemoptysis. No hematuria. Past Medical History Cardiovascular: HTN, Hyperlipidemia Pulmonary: Pneumonia GI: GERD, GI bleed, Other (myelodysplastic syndrome) Heme/Onc: Other Hepatobiliary: Hep A/B/C Musculoskeletal: low back pain, Osteoarthritis Past Surgical History Past Surgical History: Cataract Removal, Tonsillectomy Family History Family History: Cancer, Diabetes, Hypertension, Stroke Social History Smoke: No ALCOHOL: occassional Drugs: None Current Problem List Problem List Problems Medical Problems: (1) Anemia Status: Acute (2) GI bleed Status: Acute Problems: Current Medications Current Medications Current Medications Sodium Chloride 1,000 ml @ 1,000 mls/hr 1X ONCE IV Last administered on 22:22; Start 12/05/16 at 22:00; Stop 12/05/16 at 22:59; Status DC Pantoprazole Sodium (Protonix Vial) 40 mg ONCE ONCE IVP Last administered on 23:23; Start 12/05/16 at 23:15; Stop 12/05/16 at 23:16; Status DC Pantoprazole Sodium 80 mg/ Sodium Chloride 100 ml @ 10 mls/hr Q10H IV Last administered on 12/06/16 08:12; Start 12/05/16 at 23:15 Alprazolam (Xanax) 1 mg PRN BID PRN PO ANXIETY Last administered on 12/06/16 08:54; Start 12/06/16 at 01:15 Amlodipine Besylate (Norvasc) 5 mg DAILY PO Last administered on 12/06/16 08: 54; Start 12/06/16 at 09:00 Atorvastatin Calcium (Lipitor) 10 mg HS PO ; Start 12/06/16 at 21:00 Baclofen (Lioresal) 10 mg TID PO Last administered on 12/06/16 14:26; Start at 09:00 Acetaminophen/ Hydrocodone Bitart (Lortab 10/325) 1 tab PRN Q6HRS PRN PO PAIN Last administered on 12/06/16 01:26; Start 12/06/16 at 01:15 Sertraline HCl (Zoloft) 50 mg DAILY PO Last administered on 12/06/16 08:54; Start 12/06/16 at 09:00 Tamsulosin HCl (Flomax) 0.4 mg DAILY PO Last administered on 12/06/16 08:54; Start 12/06/16 at 09:00 Trazodone HCl (Desyrel) 100 mg HS PO ; Start 12/06/16 at 21:00 Pantoprazole Sodium (Protonix) 40 mg DAILYAC PO ; Start 12/06/16 at 07:30; Status Cancel Pantoprazole Sodium (Protonix) 40 mg DAILYAC PO ; Start 12/07/16 at 07:30 Active Scripts Active Zoloft (Sertraline Hcl) 50 Mg Tablet 1 Tab PO DAILY Valtrex (Valacyclovir Hcl) 500 Mg Tablet 1,000 Mg PO BID 28 Days Reported Trazodone Hcl 100 Mg Tablet 100 Mg PO HS Baclofen 10 Mg Tablet 1 Tab PO TID Amlodipine Besylate 5 Mg Tablet 5 Mg PO DAILY Flomax (Tamsulosin Hcl) 0.4 Mg Cap.er.24h 1 Cap PO DAILY Omeprazole 40 Mg Capsule.dr 1 Cap PO DAILY Hydrocodone-Apap 10-325 (Hydrocodone Bit/Acetaminophen) 1 Each Tablet 10- 325 Mg PO PRN Q6HRS PRN Atorvastatin Calcium 10 Mg Tablet 10 Mg PO DAILY Alprazolam 1 Mg Tablet 1 Mg PO PRN BID PRN Allergies Allergies: Coded Allergies: No Known Drug Allergies (Unverified , 11/30/16) ROS General: YES: Fatigue, Malaise PSYCHOLOGICAL ROS: YES: Anxiety HEENT: YES: Heacaches Gastrointestinal: Yes Nausea, Yes Vomiting, Yes Other (no abd pain) Neurological: Yes Weakness Physical Exam General: Alert, Oriented X3 HEENT: Atraumatic, PERRLA Heart: RRR, no murmurs Abdomen: Normal bowel sounds, Soft, No tenderness Extremities: No clubbing, No cyanosis Skin: No rashes Neuro: Normal gait, Normal speech, Strength at 5/5 X4 ext Psych/Mental Status: Mental status NL Vitals Vitals Vital Signs Date Time Temp Pulse Resp B/P (MAP) Pulse Ox O2 Delivery O2 Flow Rate FiO2 12/06/16 15:00 84 21 113/59 (77) 99 Room Air 12/06/16 12:00 98.3 98.3 Labs Labs Laboratory Tests Test 12/05/16 22:00 12/06/16 01:00 12/06/16 04:30 12/06/16 11:30 White Blood Count 7.5 x10^3/uL (4.0-11.0) 5.0 x10^3/uL (4.0-11.0) 4.8 x10^3/uL (4.0-11.0) Red Blood Count 1.52 x10^6/uL (4.30-5.70) 2.16 x10^6/uL (4.30-5.70) 3.01 x10^6/uL (4.30-5.70) Hemoglobin 5.9 g/dL (13.0-17.5) 7.7 g/dL (13.0-17.5) 9.9 g/dL (13.0-17.5) Hematocrit 18.1 % (39.0-53.0) 22.6 % (39.0-53.0) 28.9 % (39.0-53.0) Mean Corpuscular Volume 119 fL (79-100) 105 fL (79-100) 96 fL (79-100) Mean Corpuscular Hemoglobin 39 pg (25-35) 36 pg (25-35) 33 pg (25-35) Mean Corpuscular Hemoglobin Concent 33 g/dL (31-37) 34 g/dL (31-37) 34 g/dL (31-37) Red Cell Distribution Width 22.3 % (11.5-14.5) 24.1 % (11.5-14.5) 22.1 % (11.5-14.5) Platelet Count 24 x10^3/uL (140-400) 19 x10^3/uL (140-400) 52 x10^3/uL (140-400) Neutrophils (%) (Auto) 88 % (31-73) 73 % (31-73) Lymphocytes (%) (Auto) 9 % (24-48) 21 % (24-48) Monocytes (%) (Auto) 1 % (0-9) 4 % (0-9) Eosinophils (%) (Auto) 1 % (0-3) 1 % (0-3) Basophils (%) (Auto) 1 % (0-3) 1 % (0-3) Neutrophils # (Auto) 6.6 x10^3uL (1.8-7.7) 3.6 x10^3uL (1.8-7.7) Lymphocytes # (Auto) 0.7 x10^3/uL (1.0-4.8) 1.1 x10^3/uL (1.0-4.8) Monocytes # (Auto) 0.0 x10^3/uL (0.0-1.1) 0.2 x10^3/uL (0.0-1.1) Eosinophils # (Auto) 0.1 x10^3/uL (0.0-0.7) 0.1 x10^3/uL (0.0-0.7) Basophils # (Auto) 0.1 x10^3/uL (0.0-0.2) 0.1 x10^3/uL (0.0-0.2) Segmented Neutrophils % 63 % (35-66) Band Neutrophils % 5 % (0-9) Lymphocytes % 19 % (24-48) Atypical Lymphocytes % (Manual) 5 % (0-0) Monocytes % 2 % (0-10) Eosinophils % 3 % (0-5) Basophils % 2 % (0-3) Myelocytes % 1 % (0-0) Nucleated Red Blood Cells 14 Platelet Estimate Decreased (ADEQUATE) Basophilic Stippling Present Anisocytosis Present Macrocytosis Present Prothrombin Time 14.0 SEC (11.7-14.0) Prothromb Time International Ratio 1.2 (0.8-1.1) Activated Partial Thromboplast Time 29 SEC (24-38) Sodium Level 137 mmol/L (136-145) Potassium Level 4.3 mmol/L (3.5-5.1) Chloride Level 100 mmol/L (98-107) Carbon Dioxide Level 27 mmol/L (21-32) Anion Gap 10 (6-14) Blood Urea Nitrogen 44 mg/dL (8-26) Creatinine 1.1 mg/dL (0.7-1.3) Estimated GFR (Cockcroft-Gault) 80.5 BUN/Creatinine Ratio 40 (6-20) Glucose Level 200 mg/dL (70-99) Calcium Level 9.1 mg/dL (8.5-10.1) Total Bilirubin 0.3 mg/dL (0.2-1.0) Aspartate Amino Transf (AST/SGOT) 18 U/L (15-37) Alanine Aminotransferase (ALT/SGPT) 19 U/L (16-63) Alkaline Phosphatase 87 U/L (46-116) Total Protein 6.7 g/dL (6.4-8.2) Albumin 3.3 g/dL (3.4-5.0) Albumin/Globulin Ratio 1.0 (1.0-1.7) Nasal Screen MRSA (PCR) Negative (Negative) Laboratory Tests Test 12/05/16 22:00 12/06/16 01:00 12/06/16 04:30 12/06/16 11:30 White Blood Count 7.5 x10^3/uL (4.0-11.0) 5.0 x10^3/uL (4.0-11.0) 4.8 x10^3/uL (4.0-11.0) Red Blood Count 1.52 x10^6/uL (4.30-5.70) 2.16 x10^6/uL (4.30-5.70) 3.01 x10^6/uL (4.30-5.70) Hemoglobin 5.9 g/dL (13.0-17.5) 7.7 g/dL (13.0-17.5) 9.9 g/dL (13.0-17.5) Hematocrit 18.1 % (39.0-53.0) 22.6 % (39.0-53.0) 28.9 % (39.0-53.0) Mean Corpuscular Volume 119 fL (79-100) 105 fL (79-100) 96 fL (79-100) Mean Corpuscular Hemoglobin 39 pg (25-35) 36 pg (25-35) 33 pg (25-35) Mean Corpuscular Hemoglobin Concent 33 g/dL (31-37) 34 g/dL (31-37) 34 g/dL (31-37) Red Cell Distribution Width 22.3 % (11.5-14.5) 24.1 % (11.5-14.5) 22.1 % (11.5-14.5) Platelet Count 24 x10^3/uL (140-400) 19 x10^3/uL (140-400) 52 x10^3/uL (140-400) Neutrophils (%) (Auto) 88 % (31-73) 73 % (31-73) Lymphocytes (%) (Auto) 9 % (24-48) 21 % (24-48) Monocytes (%) (Auto) 1 % (0-9) 4 % (0-9) Eosinophils (%) (Auto) 1 % (0-3) 1 % (0-3) Basophils (%) (Auto) 1 % (0-3) 1 % (0-3) Neutrophils # (Auto) 6.6 x10^3uL (1.8-7.7) 3.6 x10^3uL (1.8-7.7) Lymphocytes # (Auto) 0.7 x10^3/uL (1.0-4.8) 1.1 x10^3/uL (1.0-4.8) Monocytes # (Auto) 0.0 x10^3/uL (0.0-1.1) 0.2 x10^3/uL (0.0-1.1) Eosinophils # (Auto) 0.1 x10^3/uL (0.0-0.7) 0.1 x10^3/uL (0.0-0.7) Basophils # (Auto) 0.1 x10^3/uL (0.0-0.2) 0.1 x10^3/uL (0.0-0.2) Segmented Neutrophils % 63 % (35-66) Band Neutrophils % 5 % (0-9) Lymphocytes % 19 % (24-48) Atypical Lymphocytes % (Manual) 5 % (0-0) Monocytes % 2 % (0-10) Eosinophils % 3 % (0-5) Basophils % 2 % (0-3) Myelocytes % 1 % (0-0) Nucleated Red Blood Cells 14 Platelet Estimate Decreased (ADEQUATE) Basophilic Stippling Present Anisocytosis Present Macrocytosis Present Prothrombin Time 14.0 SEC (11.7-14.0) Prothromb Time International Ratio 1.2 (0.8-1.1) Activated Partial Thromboplast Time 29 SEC (24-38) Sodium Level 137 mmol/L (136-145) Potassium Level 4.3 mmol/L (3.5-5.1) Chloride Level 100 mmol/L (98-107) Carbon Dioxide Level 27 mmol/L (21-32) Anion Gap 10 (6-14) Blood Urea Nitrogen 44 mg/dL (8-26) Creatinine 1.1 mg/dL (0.7-1.3) Estimated GFR (Cockcroft-Gault) 80.5 BUN/Creatinine Ratio 40 (6-20) Glucose Level 200 mg/dL (70-99) Calcium Level 9.1 mg/dL (8.5-10.1) Total Bilirubin 0.3 mg/dL (0.2-1.0) Aspartate Amino Transf (AST/SGOT) 18 U/L (15-37) Alanine Aminotransferase (ALT/SGPT) 19 U/L (16-63) Alkaline Phosphatase 87 U/L (46-116) Total Protein 6.7 g/dL (6.4-8.2) Albumin 3.3 g/dL (3.4-5.0) Albumin/Globulin Ratio 1.0 (1.0-1.7) Nasal Screen MRSA (PCR) Negative (Negative) VTE Prophylaxis Ordered VTE Prophylaxis Devices: Yes VTE Pharmacological Prophylaxi: Contraindicated Assessment/Plan Assessment/Plan 1- anemia possible upper GI bleed 2-Thrombocytopenia 3-Myelodysplastic syndrome JUAN SMITH MD Dec 06, 2016 16:27
[2016-12-06] MEDS: PANTOPRAZOLE 40 MG TABLET.DR. PO SCH (17:35)
[2016-12-06] MEDS: ATORVASTATIN CALCIUM 10 MG TABLET. PO SCH (21:14)
[2016-12-06] MEDS: traZODone 100 MG TABLET. PO SCH (21:15)
[2016-12-07 03:00] VITALS: BP 115/63
[2016-12-07 05:43] LABS: HEMATOCRIT 27.1 % (39.0-53.0); HEMOGLOBIN 9.3 g/dL (13.0-17.5); RED BLOOD COUNT 2.82 x10^6/uL (4.30-5.70); RED CELL DISTRIBUTION WIDTH 21.7 % (11.5-14.5); WHITE BLOOD COUNT 3.4 x10^3/uL (4.0-11.0)
[2016-12-07 05:51] LABS: CALCIUM 8.6 mg/dL (8.5-10.1); CREATININE 0.9 mg/dL (0.7-1.3); GFR 101.5; POTASSIUM 3.9 mmol/L (3.5-5.1)
[2016-12-07 07:23] VITALS: BP 138/69
--- NOTE | 2016-12-07 09:33 | PDOC ---
SUBJECTIVE Subjective he feels better, still no BM, tolerating liquid diet OBJECTIVE Objective stable Vital Signs Vital Signs Date Time Temp Pulse Resp B/P (MAP) Pulse Ox O2 Delivery O2 Flow Rate FiO2 12/07/16 07:23 98.1 78 18 138/69 (92) 99 Room Air 98.1 12/07/16 03:00 98.8 67 16 115/63 (80) 97 Room Air 98.8 12/06/16 23:00 98.8 72 19 145/84 (104) 98 Room Air 98.8 12/06/16 22:15 16 98 Room Air 12/06/16 21:15 20 100 Room Air 12/06/16 20:40 Room Air 12/06/16 19:00 98.9 78 16 142/68 (92) 98 Room Air 98.9 12/06/16 15:00 84 21 113/59 (77) 99 Room Air 12/06/16 14:00 90 18 135/68 (90) 100 Room Air 12/06/16 13:00 80 17 119/60 (79) 98 Room Air 12/06/16 12:00 98.3 82 17 122/66 (84) 100 Room Air 98.3 12/06/16 12:00 Room Air 12/06/16 11:00 77 17 134/98 (110) 100 Room Air 12/06/16 10:55 98.3 81 18 118/68 98.3 12/06/16 10:00 80 20 121/63 (82) 99 Room Air 12/06/16 09:40 98.5 84 18 122/70 98.5 I & O Intake and Output 12/07/16 07:00 Intake Total 1630 ml Output Total 1600 ml Balance 30 ml Intake Oral 1280 ml Blood Product IV Normal Saline Flush 350 ml Output Urine Total 1600 ml PHYSICAL EXAM Physical Exam lungs clear heart RRR abd soft and none tender ext no edema ASSESSMENT/PLAN Assessment/Plan Hb and platlets about same, clinically better , no further stool, tolerating liquid plan to advance diet, recheck lab in AM Problems: COMMENT Lab Laboratory Tests Test 12/06/16 11:30 12/07/16 05:30 White Blood Count 4.8 x10^3/uL (4.0-11.0) 3.4 x10^3/uL (4.0-11.0) Red Blood Count 3.01 x10^6/uL (4.30-5.70) 2.82 x10^6/uL (4.30-5.70) Hemoglobin 9.9 g/dL (13.0-17.5) 9.3 g/dL (13.0-17.5) Hematocrit 28.9 % (39.0-53.0) 27.1 % (39.0-53.0) Mean Corpuscular Volume 96 fL (79-100) 96 fL (79-100) Mean Corpuscular Hemoglobin 33 pg (25-35) 33 pg (25-35) Mean Corpuscular Hemoglobin Concent 34 g/dL (31-37) 35 g/dL (31-37) Red Cell Distribution Width 22.1 % (11.5-14.5) 21.7 % (11.5-14.5) Platelet Count 52 x10^3/uL (140-400) 41 x10^3/uL (140-400) Sodium Level 138 mmol/L (136-145) Potassium Level 3.9 mmol/L (3.5-5.1) Chloride Level 104 mmol/L (98-107) Carbon Dioxide Level 28 mmol/L (21-32) Anion Gap 6 (6-14) Blood Urea Nitrogen 22 mg/dL (8-26) Creatinine 0.9 mg/dL (0.7-1.3) Estimated GFR (Cockcroft-Gault) 101.5 Glucose Level 106 mg/dL (70-99) Calcium Level 8.6 mg/dL (8.5-10.1) JUAN SMITH MD Dec 07, 2016 09:33
[2016-12-07] MEDS: TAMSULOSIN 0.4 MG CAP.ER.24H. PO SCH (10:00)
[2016-12-07] MEDS: HYDROcodone/APAP 10/325 1 TAB TABLET PO PRN ×3 (10:00→22:39)
[2016-12-07] MEDS: PANTOPRAZOLE 40 MG TABLET.DR. PO SCH (10:00)
[2016-12-07] MEDS: SERTRALINE 50 MG TABLET. PO SCH (10:00)
[2016-12-07] MEDS: amLODIPine BESYLATE 5 MG TABLET PO SCH (10:01)
[2016-12-07] MEDS: BACLOFEN 10 MG TABLET. PO SCH ×3 (10:01→21:00)
[2016-12-07] MEDS: ALPRAZolam 1 MG TABLET PO PRN ×2 (10:03→22:38)
--- NOTE | 2016-12-07 10:18 | PDOC ---
G I PROGRESS NOTE Reason for Follow-up GIB/anemia Subjective Denies GI symptoms. Hasn't stooled since admission really. No further N or V. Objective Showed me labs from 11/16. Physical Exam Lungs clear. RRR Abdomen soft, not tender nor distended. Review of Relevant I have reviewed the following items ifeanyi (where applicable) has been applied. Labs Laboratory Tests Test 12/05/16 22:00 12/06/16 01:00 12/06/16 04:30 12/06/16 11:30 White Blood Count 7.5 x10^3/uL (4.0-11.0) 5.0 x10^3/uL (4.0-11.0) 4.8 x10^3/uL (4.0-11.0) Red Blood Count 1.52 x10^6/uL (4.30-5.70) 2.16 x10^6/uL (4.30-5.70) 3.01 x10^6/uL (4.30-5.70) Hemoglobin 5.9 g/dL (13.0-17.5) 7.7 g/dL (13.0-17.5) 9.9 g/dL (13.0-17.5) Hematocrit 18.1 % (39.0-53.0) 22.6 % (39.0-53.0) 28.9 % (39.0-53.0) Mean Corpuscular Volume 119 fL (79-100) 105 fL (79-100) 96 fL (79-100) Mean Corpuscular Hemoglobin 39 pg (25-35) 36 pg (25-35) 33 pg (25-35) Mean Corpuscular Hemoglobin Concent 33 g/dL (31-37) 34 g/dL (31-37) 34 g/dL (31-37) Red Cell Distribution Width 22.3 % (11.5-14.5) 24.1 % (11.5-14.5) 22.1 % (11.5-14.5) Platelet Count 24 x10^3/uL (140-400) 19 x10^3/uL (140-400) 52 x10^3/uL (140-400) Neutrophils (%) (Auto) 88 % (31-73) 73 % (31-73) Lymphocytes (%) (Auto) 9 % (24-48) 21 % (24-48) Monocytes (%) (Auto) 1 % (0-9) 4 % (0-9) Eosinophils (%) (Auto) 1 % (0-3) 1 % (0-3) Basophils (%) (Auto) 1 % (0-3) 1 % (0-3) Neutrophils # (Auto) 6.6 x10^3uL (1.8-7.7) 3.6 x10^3uL (1.8-7.7) Lymphocytes # (Auto) 0.7 x10^3/uL (1.0-4.8) 1.1 x10^3/uL (1.0-4.8) Monocytes # (Auto) 0.0 x10^3/uL (0.0-1.1) 0.2 x10^3/uL (0.0-1.1) Eosinophils # (Auto) 0.1 x10^3/uL (0.0-0.7) 0.1 x10^3/uL (0.0-0.7) Basophils # (Auto) 0.1 x10^3/uL (0.0-0.2) 0.1 x10^3/uL (0.0-0.2) Segmented Neutrophils % 63 % (35-66) Band Neutrophils % 5 % (0-9) Lymphocytes % 19 % (24-48) Atypical Lymphocytes % (Manual) 5 % (0-0) Monocytes % 2 % (0-10) Eosinophils % 3 % (0-5) Basophils % 2 % (0-3) Myelocytes % 1 % (0-0) Nucleated Red Blood Cells 14 Platelet Estimate Decreased (ADEQUATE) Basophilic Stippling Present Anisocytosis Present Macrocytosis Present Prothrombin Time 14.0 SEC (11.7-14.0) Prothromb Time International Ratio 1.2 (0.8-1.1) Activated Partial Thromboplast Time 29 SEC (24-38) Sodium Level 137 mmol/L (136-145) Potassium Level 4.3 mmol/L (3.5-5.1) Chloride Level 100 mmol/L (98-107) Carbon Dioxide Level 27 mmol/L (21-32) Anion Gap 10 (6-14) Blood Urea Nitrogen 44 mg/dL (8-26) Creatinine 1.1 mg/dL (0.7-1.3) Estimated GFR (Cockcroft-Gault) 80.5 BUN/Creatinine Ratio 40 (6-20) Glucose Level 200 mg/dL (70-99) Calcium Level 9.1 mg/dL (8.5-10.1) Total Bilirubin 0.3 mg/dL (0.2-1.0) Aspartate Amino Transf (AST/SGOT) 18 U/L (15-37) Alanine Aminotransferase (ALT/SGPT) 19 U/L (16-63) Alkaline Phosphatase 87 U/L (46-116) Total Protein 6.7 g/dL (6.4-8.2) Albumin 3.3 g/dL (3.4-5.0) Albumin/Globulin Ratio 1.0 (1.0-1.7) Nasal Screen MRSA (PCR) Negative (Negative) Test 12/07/16 05:30 White Blood Count 3.4 x10^3/uL (4.0-11.0) Red Blood Count 2.82 x10^6/uL (4.30-5.70) Hemoglobin 9.3 g/dL (13.0-17.5) Hematocrit 27.1 % (39.0-53.0) Mean Corpuscular Volume 96 fL (79-100) Mean Corpuscular Hemoglobin 33 pg (25-35) Mean Corpuscular Hemoglobin Concent 35 g/dL (31-37) Red Cell Distribution Width 21.7 % (11.5-14.5) Platelet Count 41 x10^3/uL (140-400) Sodium Level 138 mmol/L (136-145) Potassium Level 3.9 mmol/L (3.5-5.1) Chloride Level 104 mmol/L (98-107) Carbon Dioxide Level 28 mmol/L (21-32) Anion Gap 6 (6-14) Blood Urea Nitrogen 22 mg/dL (8-26) Creatinine 0.9 mg/dL (0.7-1.3) Estimated GFR (Cockcroft-Gault) 101.5 Glucose Level 106 mg/dL (70-99) Calcium Level 8.6 mg/dL (8.5-10.1) Laboratory Tests Test 12/06/16 11:30 12/07/16 05:30 White Blood Count 4.8 x10^3/uL (4.0-11.0) 3.4 x10^3/uL (4.0-11.0) Red Blood Count 3.01 x10^6/uL (4.30-5.70) 2.82 x10^6/uL (4.30-5.70) Hemoglobin 9.9 g/dL (13.0-17.5) 9.3 g/dL (13.0-17.5) Hematocrit 28.9 % (39.0-53.0) 27.1 % (39.0-53.0) Mean Corpuscular Volume 96 fL (79-100) 96 fL (79-100) Mean Corpuscular Hemoglobin 33 pg (25-35) 33 pg (25-35) Mean Corpuscular Hemoglobin Concent 34 g/dL (31-37) 35 g/dL (31-37) Red Cell Distribution Width 22.1 % (11.5-14.5) 21.7 % (11.5-14.5) Platelet Count 52 x10^3/uL (140-400) 41 x10^3/uL (140-400) Sodium Level 138 mmol/L (136-145) Potassium Level 3.9 mmol/L (3.5-5.1) Chloride Level 104 mmol/L (98-107) Carbon Dioxide Level 28 mmol/L (21-32) Anion Gap 6 (6-14) Blood Urea Nitrogen 22 mg/dL (8-26) Creatinine 0.9 mg/dL (0.7-1.3) Estimated GFR (Cockcroft-Gault) 101.5 Glucose Level 106 mg/dL (70-99) Calcium Level 8.6 mg/dL (8.5-10.1) Hemoglobin remaining stable. Medications Current Medications Sodium Chloride 1,000 ml @ 1,000 mls/hr 1X ONCE IV Last administered on 22:22; Start 12/05/16 at 22:00; Stop 12/05/16 at 22:59; Status DC Pantoprazole Sodium (Protonix Vial) 40 mg ONCE ONCE IVP Last administered on 23:23; Start 12/05/16 at 23:15; Stop 12/05/16 at 23:16; Status DC Pantoprazole Sodium 80 mg/ Sodium Chloride 100 ml @ 10 mls/hr Q10H IV Last administered on 12/06/16 08:12; Start 12/05/16 at 23:15; Stop 12/06/16 at 16:22 ; Status DC Alprazolam (Xanax) 1 mg PRN BID PRN PO ANXIETY Last administered on 12/07/16 10:03; Start 12/06/16 at 01:15 Amlodipine Besylate (Norvasc) 5 mg DAILY PO Last administered on 12/07/16 10: 01; Start 12/06/16 at 09:00 Atorvastatin Calcium (Lipitor) 10 mg HS PO Last administered on 12/06/16 21:14 ; Start 12/06/16 at 21:00 Baclofen (Lioresal) 10 mg TID PO Last administered on 12/07/16 10:01; Start at 09:00 Acetaminophen/ Hydrocodone Bitart (Lortab 10/325) 1 tab PRN Q6HRS PRN PO PAIN Last administered on 12/07/16 10:00; Start 12/06/16 at 01:15 Sertraline HCl (Zoloft) 50 mg DAILY PO Last administered on 12/07/16 10:00; Start 12/06/16 at 09:00 Tamsulosin HCl (Flomax) 0.4 mg DAILY PO Last administered on 12/07/16 10:00; Start 12/06/16 at 09:00 Trazodone HCl (Desyrel) 100 mg HS PO Last administered on 12/06/16 21:15; Start 12/06/16 at 21:00 Pantoprazole Sodium (Protonix) 40 mg DAILYAC PO ; Start 12/06/16 at 07:30; Status Cancel Pantoprazole Sodium (Protonix) 40 mg DAILYAC PO Last administered on 12/07/16 10:00; Start 12/06/16 at 17:00 Tbo-Filgrastim (Granix) 480 mcg 1X ONCE SQ ; Start 12/07/16 at 21:00; Stop at 21:01 Active Scripts Active Zoloft (Sertraline Hcl) 50 Mg Tablet 1 Tab PO DAILY Valtrex (Valacyclovir Hcl) 500 Mg Tablet 1,000 Mg PO BID 28 Days Reported Trazodone Hcl 100 Mg Tablet 100 Mg PO HS Baclofen 10 Mg Tablet 1 Tab PO TID Amlodipine Besylate 5 Mg Tablet 5 Mg PO DAILY Flomax (Tamsulosin Hcl) 0.4 Mg Cap.er.24h 1 Cap PO DAILY Omeprazole 40 Mg Capsule.dr 1 Cap PO DAILY Hydrocodone-Apap 10-325 (Hydrocodone Bit/Acetaminophen) 1 Each Tablet 10- 325 Mg PO PRN Q6HRS PRN Atorvastatin Calcium 10 Mg Tablet 10 Mg PO DAILY Alprazolam 1 Mg Tablet 1 Mg PO PRN BID PRN Vitals/I & O Vital Sign - Last 24 Hours 12/06/16 12/06/16 12/06/16 12/06/16 10:55 11:00 12:00 12:00 Temp 98.3 98.3 98.3 98.3 Pulse 81 77 82 Resp 17 B/P (MAP) 118/68 134/98 (110) 122/66 (84) Pulse Ox 100 100 O2 Delivery Room Air Room Air Room Air 12/06/16 12/06/16 12/06/16 12/06/16 13:00 14:00 15:00 19:00 Temp 98.9 98.9 Pulse 80 90 84 78 Resp 17 18 21 16 B/P (MAP) 119/60 (79) 135/68 (90) 113/59 (77) 142/68 (92) Pulse Ox 98 100 99 98 O2 Delivery Room Air Room Air Room Air Room Air 12/06/16 12/06/16 12/06/16 12/06/16 20:40 21:15 22:15 23:00 Temp 98.8 98.8 Pulse 72 Resp 19 B/P (MAP) 145/84 (104) Pulse Ox 100 98 98 O2 Delivery Room Air Room Air Room Air Room Air 12/07/16 12/07/16 12/07/16 03:00 07:23 10:01 Temp 98.8 98.1 98.8 98.1 Pulse 67 78 78 Resp 16 18 B/P (MAP) 115/63 (80) 138/69 (92) 138/69 Pulse Ox 97 99 O2 Delivery Room Air Room Air Intake and Output 12/06/16 12/06/16 12/07/16 14:59 22:59 06:59 Intake Total 550 ml 720 ml 360 ml Output Total 930 ml 500 ml 350 ml Balance -380 ml 220 ml 10 ml Problem List Problems Medical Problems: (1) Anemia Status: Acute (2) GI bleed Status: Acute Assessment GI bleeding seems to have stopped for the time being. Given he's able to vomit and not produce blood, not likely any issue proximal to the ligament of Trietz ( limit of upper endoscopy). Given no overtly bloody or maroon stools, not likely issue in colon (and has had 2 prior colonoscopies). Would suspect probably has small bowel bleeding and without symptoms of obstructive nature more likely to be angiodysplasiae and not amenable to endoscopic treatment here as no scope long enough. Hence, I'm not enthusiastic re: any endoscopy. Plan of Care: Continue current Tx, Mgmt Plan of Care Note OK with me to advance diet. Could consider referral to center with DBE (double-balloon endoscopy) if further w/u desired. Would not do SBCE at this time. If ever presents with hemodynamic compromise, consider Nuclear bleeding scan to localize; not likely to be positive at this point. KRISTEN DE LA CRUZ MD Dec 07, 2016 10:18
[2016-12-07 11:25] VITALS: BP_SYST 116; BP_SYST 98; BP_DIAS 62; BP_DIAS 71
--- NOTE | 2016-12-07 12:32 | PDOC ---
PROGRESS NOTES Subjective Subjective c/c - f/u of MDS ROS - no GI bleed Objective Objective Vital Signs Date Time Temp Pulse Resp B/P (MAP) Pulse Ox O2 Delivery O2 Flow Rate FiO2 12/07/16 11:25 97.8 77 16 116/62 (80) 97 Room Air 97.8 Intake and Output 12/07/16 07:00 Intake Total 1630 ml Output Total 1600 ml Balance 30 ml Intake Oral 1280 ml Blood Product IV Normal Saline Flush 350 ml Output Urine Total 1600 ml Physical Exam Heart: Normal S1, Normal S2 General: Alert, Oriented X3 Lungs: Clear to auscultation Neuro: Normal speech Psych/Mental Status: Mental status NL Assessment Assessment Problems Medical Problems: (1) Anemia Status: Acute (2) GI bleed Status: Acute IMPRESSION AND PLAN: 1. Myelodysplastic syndrome. He was started on chemotherapy with Vidaza on 06/30/2015. Chemo with vidaza started 06/30/15. s/p C9 of vidaza 04/19/16. No response, I d/c'ed vidaza. He is on observation. 2.Anemia I agree to monitor hemoglobin and transfuse as needed. Hb 5.9 12/05/16, s/p 4 PRBC, Hb now 9.3. Appreciate GI consult. 3. Thrombocytopenia, secondary to myelodysplastic syndrome and splenomegaly due to hepatitis C. Plt now 41. 4. Neutropenia, secondary to myelodysplastic syndrome. WBC now worse at 3.4, resume neupogen/granix. Plan one dose today 480 mcg. He usually gets it M/W/F outpatient. Monitor Comment Review of Relevant I have reviewed the following items ifeanyi (where applicable) has been applied. Labs Laboratory Tests Test 12/05/16 22:00 12/06/16 01:00 12/06/16 04:30 12/06/16 11:30 White Blood Count 7.5 x10^3/uL (4.0-11.0) 5.0 x10^3/uL (4.0-11.0) 4.8 x10^3/uL (4.0-11.0) Red Blood Count 1.52 x10^6/uL (4.30-5.70) 2.16 x10^6/uL (4.30-5.70) 3.01 x10^6/uL (4.30-5.70) Hemoglobin 5.9 g/dL (13.0-17.5) 7.7 g/dL (13.0-17.5) 9.9 g/dL (13.0-17.5) Hematocrit 18.1 % (39.0-53.0) 22.6 % (39.0-53.0) 28.9 % (39.0-53.0) Mean Corpuscular Volume 119 fL (79-100) 105 fL (79-100) 96 fL (79-100) Mean Corpuscular Hemoglobin 39 pg (25-35) 36 pg (25-35) 33 pg (25-35) Mean Corpuscular Hemoglobin Concent 33 g/dL (31-37) 34 g/dL (31-37) 34 g/dL (31-37) Red Cell Distribution Width 22.3 % (11.5-14.5) 24.1 % (11.5-14.5) 22.1 % (11.5-14.5) Platelet Count 24 x10^3/uL (140-400) 19 x10^3/uL (140-400) 52 x10^3/uL (140-400) Neutrophils (%) (Auto) 88 % (31-73) 73 % (31-73) Lymphocytes (%) (Auto) 9 % (24-48) 21 % (24-48) Monocytes (%) (Auto) 1 % (0-9) 4 % (0-9) Eosinophils (%) (Auto) 1 % (0-3) 1 % (0-3) Basophils (%) (Auto) 1 % (0-3) 1 % (0-3) Neutrophils # (Auto) 6.6 x10^3uL (1.8-7.7) 3.6 x10^3uL (1.8-7.7) Lymphocytes # (Auto) 0.7 x10^3/uL (1.0-4.8) 1.1 x10^3/uL (1.0-4.8) Monocytes # (Auto) 0.0 x10^3/uL (0.0-1.1) 0.2 x10^3/uL (0.0-1.1) Eosinophils # (Auto) 0.1 x10^3/uL (0.0-0.7) 0.1 x10^3/uL (0.0-0.7) Basophils # (Auto) 0.1 x10^3/uL (0.0-0.2) 0.1 x10^3/uL (0.0-0.2) Segmented Neutrophils % 63 % (35-66) Band Neutrophils % 5 % (0-9) Lymphocytes % 19 % (24-48) Atypical Lymphocytes % (Manual) 5 % (0-0) Monocytes % 2 % (0-10) Eosinophils % 3 % (0-5) Basophils % 2 % (0-3) Myelocytes % 1 % (0-0) Nucleated Red Blood Cells 14 Platelet Estimate Decreased (ADEQUATE) Basophilic Stippling Present Anisocytosis Present Macrocytosis Present Prothrombin Time 14.0 SEC (11.7-14.0) Prothromb Time International Ratio 1.2 (0.8-1.1) Activated Partial Thromboplast Time 29 SEC (24-38) Sodium Level 137 mmol/L (136-145) Potassium Level 4.3 mmol/L (3.5-5.1) Chloride Level 100 mmol/L (98-107) Carbon Dioxide Level 27 mmol/L (21-32) Anion Gap 10 (6-14) Blood Urea Nitrogen 44 mg/dL (8-26) Creatinine 1.1 mg/dL (0.7-1.3) Estimated GFR (Cockcroft-Gault) 80.5 BUN/Creatinine Ratio 40 (6-20) Glucose Level 200 mg/dL (70-99) Calcium Level 9.1 mg/dL (8.5-10.1) Total Bilirubin 0.3 mg/dL (0.2-1.0) Aspartate Amino Transf (AST/SGOT) 18 U/L (15-37) Alanine Aminotransferase (ALT/SGPT) 19 U/L (16-63) Alkaline Phosphatase 87 U/L (46-116) Total Protein 6.7 g/dL (6.4-8.2) Albumin 3.3 g/dL (3.4-5.0) Albumin/Globulin Ratio 1.0 (1.0-1.7) Nasal Screen MRSA (PCR) Negative (Negative) Test 12/07/16 05:30 White Blood Count 3.4 x10^3/uL (4.0-11.0) Red Blood Count 2.82 x10^6/uL (4.30-5.70) Hemoglobin 9.3 g/dL (13.0-17.5) Hematocrit 27.1 % (39.0-53.0) Mean Corpuscular Volume 96 fL (79-100) Mean Corpuscular Hemoglobin 33 pg (25-35) Mean Corpuscular Hemoglobin Concent 35 g/dL (31-37) Red Cell Distribution Width 21.7 % (11.5-14.5) Platelet Count 41 x10^3/uL (140-400) Sodium Level 138 mmol/L (136-145) Potassium Level 3.9 mmol/L (3.5-5.1) Chloride Level 104 mmol/L (98-107) Carbon Dioxide Level 28 mmol/L (21-32) Anion Gap 6 (6-14) Blood Urea Nitrogen 22 mg/dL (8-26) Creatinine 0.9 mg/dL (0.7-1.3) Estimated GFR (Cockcroft-Gault) 101.5 Glucose Level 106 mg/dL (70-99) Calcium Level 8.6 mg/dL (8.5-10.1) Laboratory Tests Test 12/07/16 05:30 White Blood Count 3.4 x10^3/uL (4.0-11.0) Red Blood Count 2.82 x10^6/uL (4.30-5.70) Hemoglobin 9.3 g/dL (13.0-17.5) Hematocrit 27.1 % (39.0-53.0) Mean Corpuscular Volume 96 fL (79-100) Mean Corpuscular Hemoglobin 33 pg (25-35) Mean Corpuscular Hemoglobin Concent 35 g/dL (31-37) Red Cell Distribution Width 21.7 % (11.5-14.5) Platelet Count 41 x10^3/uL (140-400) Sodium Level 138 mmol/L (136-145) Potassium Level 3.9 mmol/L (3.5-5.1) Chloride Level 104 mmol/L (98-107) Carbon Dioxide Level 28 mmol/L (21-32) Anion Gap 6 (6-14) Blood Urea Nitrogen 22 mg/dL (8-26) Creatinine 0.9 mg/dL (0.7-1.3) Estimated GFR (Cockcroft-Gault) 101.5 Glucose Level 106 mg/dL (70-99) Calcium Level 8.6 mg/dL (8.5-10.1) Medications Current Medications Sodium Chloride 1,000 ml @ 1,000 mls/hr 1X ONCE IV Last administered on 22:22; Start 12/05/16 at 22:00; Stop 12/05/16 at 22:59; Status DC Pantoprazole Sodium (Protonix Vial) 40 mg ONCE ONCE IVP Last administered on 23:23; Start 12/05/16 at 23:15; Stop 12/05/16 at 23:16; Status DC Pantoprazole Sodium 80 mg/ Sodium Chloride 100 ml @ 10 mls/hr Q10H IV Last administered on 12/06/16 08:12; Start 12/05/16 at 23:15; Stop 12/06/16 at 16:22 ; Status DC Alprazolam (Xanax) 1 mg PRN BID PRN PO ANXIETY Last administered on 12/07/16 10:03; Start 12/06/16 at 01:15 Amlodipine Besylate (Norvasc) 5 mg DAILY PO Last administered on 12/07/16 10: 01; Start 12/06/16 at 09:00 Atorvastatin Calcium (Lipitor) 10 mg HS PO Last administered on 12/06/16 21:14 ; Start 12/06/16 at 21:00 Baclofen (Lioresal) 10 mg TID PO Last administered on 12/07/16 10:01; Start at 09:00 Acetaminophen/ Hydrocodone Bitart (Lortab 10/325) 1 tab PRN Q6HRS PRN PO PAIN Last administered on 12/07/16 10:00; Start 12/06/16 at 01:15 Sertraline HCl (Zoloft) 50 mg DAILY PO Last administered on 12/07/16 10:00; Start 12/06/16 at 09:00 Tamsulosin HCl (Flomax) 0.4 mg DAILY PO Last administered on 12/07/16 10:00; Start 12/06/16 at 09:00 Trazodone HCl (Desyrel) 100 mg HS PO Last administered on 12/06/16 21:15; Start 12/06/16 at 21:00 Pantoprazole Sodium (Protonix) 40 mg DAILYAC PO ; Start 12/06/16 at 07:30; Status Cancel Pantoprazole Sodium (Protonix) 40 mg DAILYAC PO Last administered on 12/07/16t 10:00; Start 12/06/16 at 17:00 Tbo-Filgrastim (Granix) 480 mcg 1X ONCE SQ ; Start 12/07/16 at 21:00; Stop at 21:01 Active Scripts Active Zoloft (Sertraline Hcl) 50 Mg Tablet 1 Tab PO DAILY Valtrex (Valacyclovir Hcl) 500 Mg Tablet 1,000 Mg PO BID 28 Days Reported Trazodone Hcl 100 Mg Tablet 100 Mg PO HS Baclofen 10 Mg Tablet 1 Tab PO TID Amlodipine Besylate 5 Mg Tablet 5 Mg PO DAILY Flomax (Tamsulosin Hcl) 0.4 Mg Cap.er.24h 1 Cap PO DAILY Omeprazole 40 Mg Capsule.dr 1 Cap PO DAILY Hydrocodone-Apap 10-325 (Hydrocodone Bit/Acetaminophen) 1 Each Tablet 10- 325 Mg PO PRN Q6HRS PRN Atorvastatin Calcium 10 Mg Tablet 10 Mg PO DAILY Alprazolam 1 Mg Tablet 1 Mg PO PRN BID PRN Vitals/I & O Vital Sign - Last 24 Hours 12/06/16 12/06/16 12/06/16 12/06/16 13:00 14:00 15:00 19:00 Temp 98.9 98.9 Pulse 80 90 84 78 Resp 16 B/P (MAP) 119/60 (79) 135/68 (90) 113/59 (77) 142/68 (92) Pulse Ox 98 100 99 98 O2 Delivery Room Air Room Air Room Air Room Air 12/06/16 12/06/16 12/06/16 12/06/16 20:40 21:15 22:15 23:00 Temp 98.8 98.8 Pulse 72 Resp 20 16 19 B/P (MAP) 145/84 (104) Pulse Ox 100 98 98 O2 Delivery Room Air Room Air Room Air Room Air 12/07/16 12/07/16 12/07/16 12/07/16 03:00 07:23 10:01 11:25 Temp 98.8 98.1 97.8 98.8 98.1 97.8 Pulse 67 78 78 77 Resp 16 18 16 B/P (MAP) 115/63 (80) 138/69 (92) 138/69 116/62 (80) Pulse Ox 97 99 97 O2 Delivery Room Air Room Air Room Air Intake and Output 12/06/16 12/06/16 12/07/16 15:00 23:00 07:00 Intake Total 790 ml 480 ml 360 ml Output Total 950 ml 300 ml 350 ml Balance -160 ml 180 ml 10 ml OSITO HUFF MD Dec 07, 2016 12:32
[2016-12-07 15:00] VITALS: BP 121/70
[2016-12-07 19:15] VITALS: BP 129/59
[2016-12-07] MEDS ORDERED: TBO-FILGRASTIM 480 MCG/0.8 ML SYRINGE. SQ ONE (21:00)
[2016-12-07] MEDS: traZODone 100 MG TABLET. PO SCH (22:37)
[2016-12-07] MEDS: ATORVASTATIN CALCIUM 10 MG TABLET. PO SCH (22:38)
[2016-12-07 23:15] VITALS: BP 125/62
[2016-12-08 03:15] VITALS: BP 115/65
[2016-12-08 06:23] LABS: HEMATOCRIT 26.9 % (39.0-53.0); HEMOGLOBIN 9.2 g/dL (13.0-17.5); RED BLOOD COUNT 2.76 x10^6/uL (4.30-5.70); RED CELL DISTRIBUTION WIDTH 23.3 % (11.5-14.5); WHITE BLOOD COUNT 9.6 x10^3/uL (4.0-11.0)
[2016-12-08 06:46] LABS: GFR 89.9; POTASSIUM 3.7 mmol/L (3.5-5.1)
[2016-12-08 07:55] VITALS: BP 120/61
[2016-12-08] MEDS: PANTOPRAZOLE 40 MG TABLET.DR. PO SCH (08:28)
[2016-12-08] MEDS: BACLOFEN 10 MG TABLET. PO SCH (08:28)
[2016-12-08] MEDS: HYDROcodone/APAP 10/325 1 TAB TABLET PO PRN (08:28)
[2016-12-08] MEDS: SERTRALINE 50 MG TABLET. PO SCH (08:28)
[2016-12-08] MEDS: TAMSULOSIN 0.4 MG CAP.ER.24H. PO SCH (08:28)
[2016-12-08] MEDS: amLODIPine BESYLATE 5 MG TABLET PO SCH (08:28)
--- NOTE | 2016-12-08 08:53 | PDOC ---
Subjective: Subjective: Onc f/u- MDS No changed. Feels better No melena, hematochezia Eating well Objective: Vital Signs: Vital Signs Date Time Temp Pulse Resp B/P (MAP) Pulse Ox O2 Delivery O2 Flow Rate FiO2 12/08/16 08:28 Room Air 12/08/16 08:28 80 120/61 12/08/16 07:55 98.1 16 98 98.1 Physical Exam: Heart: Regular rate Extremities: No edema General: Alert, Oriented X3, Cooperative, No acute distress Lungs: Other (no resp distress) Psych/Mental Status: Mental status NL, Mood NL Skin: No rashes Labs/Imaging: CBC reviewed- hgb 9.2, WBC > 9, plt 33 Assessment/Plan A/P: 1. MDS refractory of vidaza, off since 04/07. Follows Dr. Darden monthly; office will call to schedule next appt. 2. Anemia due to MDS. Stable s/p 4 unit PRBC. Acute drop possibly due to angiodysplasia, no further scopes recommended. Remaining stable now. 3. Thrombocytopenia due to MDS, hep C, splenomegaly. stable s/p 1 unit transfused. 4. Neutropenia. Received granix MWF, continue as outpt. Ok to DC from onc standpoint. Will f/u w/ Dr. Darden in 1 mth. GM GUZMAN DO Dec 08, 2016 08:53
--- NOTE | 2016-12-08 09:58 | PDOC ---
SUBJECTIVE Subjective tolerating diet, no pain, no black stool OBJECTIVE Vital Signs Vital Signs Date Time Temp Pulse Resp B/P (MAP) Pulse Ox O2 Delivery O2 Flow Rate FiO2 12/08/16 08:28 Room Air 12/08/16 08:28 80 120/61 12/08/16 07:55 98.1 80 16 120/61 (80) 98 Room Air 98.1 12/08/16 03:15 98.2 77 16 115/65 (82) 100 Room Air 98.2 12/07/16 23:39 Room Air 12/07/16 23:15 98.4 71 16 125/62 (83) 99 Room Air 98.4 12/07/16 22:39 16 Room Air 12/07/16 20:10 Room Air 12/07/16 19:15 98.4 76 16 129/59 (82) 96 Room Air 98.4 12/07/16 15:00 98.5 72 16 121/70 (87) 97 Room Air 98.5 12/07/16 11:25 97.8 77 16 116/62 (80) 97 Room Air 97.8 12/07/16 10:01 78 138/69 I & O Intake and Output 12/08/16 07:00 Intake Total 700 ml Balance 700 ml Intake Oral 700 ml # Voids 7 PHYSICAL EXAM Physical Exam no change ASSESSMENT/PLAN Assessment/Plan 1. MDS 2. Anemia due to MDS. Stable s/p 4 unit PRBC. Acute drop possibly due to angiodysplasia, 3. Thrombocytopenia due to MDS, hep C, splenomegaly. stable s/p 1 unit transfused. 4. Neutropenia. Received granix MWF, home today f/u out pt Problems: COMMENT Lab Laboratory Tests Test 12/08/16 05:45 White Blood Count 9.6 x10^3/uL (4.0-11.0) Red Blood Count 2.76 x10^6/uL (4.30-5.70) Hemoglobin 9.2 g/dL (13.0-17.5) Hematocrit 26.9 % (39.0-53.0) Mean Corpuscular Volume 97 fL (79-100) Mean Corpuscular Hemoglobin 33 pg (25-35) Mean Corpuscular Hemoglobin Concent 34 g/dL (31-37) Red Cell Distribution Width 23.3 % (11.5-14.5) Platelet Count 37 x10^3/uL (140-400) Sodium Level 143 mmol/L (136-145) Potassium Level 3.7 mmol/L (3.5-5.1) Chloride Level 108 mmol/L (98-107) Carbon Dioxide Level 27 mmol/L (21-32) Anion Gap 8 (6-14) Blood Urea Nitrogen 16 mg/dL (8-26) Creatinine 1.0 mg/dL (0.7-1.3) Estimated GFR (Cockcroft-Gault) 89.9 Glucose Level 92 mg/dL (70-99) Calcium Level 8.0 mg/dL (8.5-10.1) JUAN SMITH MD Dec 08, 2016 09:58
--- NOTE | 2016-12-08 10:02 | PDOC3 ---
Discharge Summary* Date of Admission: Dec 05, 2016 Date of Discharge: Dec 08, 2016 Admitting Diagnosis Problems Medical Problems: (1) Anemia Status: Acute (2) GI bleed Status: Acute Problems: Final Diagnosis 1. MDS refractory of vidaza, off since 04/07. Follows Dr. Darden monthly 2. Anemia due to MDS. Stable s/p 4 unit PRBC. Acute drop possibly due to angiodysplasia GI bleed , no further scopes recommended. Remaining stable now. 3. Thrombocytopenia due to MDS, hep C, splenomegaly. stable s/p 1 unit transfused. 4. Neutropenia. Received granix MWF, continue as outpt. Problems Medical Problems: (1) Anemia Status: Acute (2) GI bleed Status: Acute CONSULTS GI, Hematology/Oncology Procedures PRBC and platelets transfusion Brief Hospital Course Mr. Braun is a 66 old [sex] who presented with [ ] Disposition/Orders: D/C to Home CONDITION AT DISCHARGE: Improved Diet: Cardiac Scheduled Amlodipine Besylate (Amlodipine Besylate), 5 MG PO DAILY, (Reported) Atorvastatin Calcium (Atorvastatin Calcium), 10 MG PO DAILY, (Reported) Baclofen (Baclofen), 1 TAB PO TID, (Reported) Omeprazole (Omeprazole), 1 CAP PO DAILY, (Reported) Sertraline Hcl (Zoloft), 1 TAB PO DAILY Tamsulosin Hcl (Flomax), 1 CAP PO DAILY, (Reported) Trazodone Hcl (Trazodone Hcl), 100 MG PO HS, (Reported) Valacyclovir Hcl (Valtrex), 1,000 MG PO BID Scheduled PRN Alprazolam (Alprazolam), 1 MG PO PRN BID PRN for ANXIETY, (Reported) Hydrocodone Bit/Acetaminophen (Hydrocodone-Apap 10-325 ), 10-325 MG PO PRN Q6HRS PRN for PAIN, (Reported) FOLLOW UP APPOINTMENT: Dr. Darden next week Dr. Muñoz next month Time Spent Total time spent with patient [] minutes for coordination of care, counseling, and education. JUAN SMITH MD Dec 08, 2016 10:02
--- NOTE | 2016-12-08 10:16 | PDOC ---
Subjective: Subjective: No bleeding, ready to go home. Objective: Vital Signs: Vital Signs Date Time Temp Pulse Resp B/P (MAP) Pulse Ox O2 Delivery O2 Flow Rate FiO2 12/08/16 08:28 Room Air 12/08/16 08:28 80 120/61 12/08/16 07:55 98.1 16 98 98.1 Labs: Laboratory Tests Test 12/08/16 05:45 White Blood Count 9.6 x10^3/uL Red Blood Count 2.76 x10^6/uL Hemoglobin 9.2 g/dL Hematocrit 26.9 % Mean Corpuscular Volume 97 fL Mean Corpuscular Hemoglobin 33 pg Mean Corpuscular Hemoglobin Concent 34 g/dL Red Cell Distribution Width 23.3 % Platelet Count 37 x10^3/uL Sodium Level 143 mmol/L Potassium Level 3.7 mmol/L Chloride Level 108 mmol/L Carbon Dioxide Level 27 mmol/L Anion Gap 8 Blood Urea Nitrogen 16 mg/dL Creatinine 1.0 mg/dL Estimated GFR (Cockcroft-Gault) 89.9 Glucose Level 92 mg/dL Calcium Level 8.0 mg/dL PE: GEN: NAD LUNGS: clear HEART: RRR ABD: S/ND/NT NEURO/PSYCH: A & O 3 A/P: ?GI bleed, anemia, thrombocytopenia -Hgb improved w/ pRBCs -- Note DC plans, okay per GI. Previously discussed possible referral for DBE. KULWANT SEBASTIAN Dec 08, 2016 10:16
[2016-12-08 11:20] VITALS: BP 114/57
== END 2016-12-08 14:02 | disposition home or self-care (01) | DRG 811 ==
LOC: ER 21:33 → 1 WEST ICU 22:42 → 6 SOUTH 12-07 07:33
PROVIDERS: ADMIT Internal Medicine; ATTEND Internal Medicine
PROC: 30233N1 Transfusion of Nonautologous Red Blood Cells into Peripheral Vein, Percutaneous Approach (ICD-10-PCS; principal; 2016-12-06)
PROC: 6A550Z2 Pheresis of Platelets, Single (ICD-10-PCS; 2016-12-06)
DX: D46.9 Myelodysplastic syndrome, unspecified (principal); K55.21 Angiodysplasia of colon with hemorrhage; D62 Acute posthemorrhagic anemia; E44.1 Mild protein-calorie malnutrition; B19.20 Unspecified viral hepatitis C without hepatic coma; D63.8 Anemia in other chronic diseases classified elsewhere; D69.59 Other secondary thrombocytopenia; M19.90 Unspecified osteoarthritis, unspecified site; D70.9 Neutropenia, unspecified; E78.00 Pure hypercholesterolemia, unspecified; E78.5 Hyperlipidemia, unspecified; I10 Essential (primary) hypertension; K21.9 Gastro-esophageal reflux disease without esophagitis; Q92.9 Trisomy and partial trisomy of autosomes, unspecified; Z82.3 Family history of stroke; Z82.49 Family history of ischemic heart disease and other diseases of the circulatory system; Z83.3 Family history of diabetes mellitus; Z92.21 Personal history of antineoplastic chemotherapy; Z79.899 Other long term (current) drug therapy; Z98.49 Cataract extraction status, unspecified eye
CPT/HCPCS: 36415; 80048; 80053; 85007; 85027; 85610; 85730; 86850; 86900; 86901; 86920; 87641; 93005; 96361; 96374; C9113; J1442; J7030; P9016; P9035; 99291-25

== ENCOUNTER 2017-01-27 11:55 | Inpatient (IN) | payer MEDICARE, MEDICAID ==
[~2017-01-27] VITALS: Ht 172.7 cm; Wt 74.8 kg
--- NOTE | 2017-01-27 12:26 | PHYS DOC ---
Past Medical History Past Medical History: Arthritis, GERD, High Cholesterol, Hypertension, Other Additional Past Medical Histor: MDS Past Surgical History: Other Additional Past Surgical Histo: R CHEST PORT PLACEMENT Additional Information: 0.5 PPD Alcohol Use: Occasionally Drug Use: None Adult General Chief Complaint Chief Complaint: TARRY STOOL HPI HPI Patient is a 66 year old M who presents with black tarry stools for the past 5 days. Patient has a history of myelodysplastic syndrome and was seen by his oncologist on Tuesday and his hemoglobin was 10.5 and his platelets were 16 however he has been having black tarry stools for the past 5 days to have gotten worse. Patient came in today to get his hemoglobin and platelets checked. Patient states his heart rate has been elevated however he denies any lightheadedness or dizziness or weakness. Patient denies any fevers. Patient denies any chest pain or shortness of breath. Patient denies any nausea/vomiting /diarrhea or abdominal pain. Patient has no other complaints. Review of Systems Review of Systems GEN: Denies fevers, chills, sweats HEENT: Denies blurred vision, sore throat CV: Denies chest pain RESP: Denies shortness of air, cough GI: Denies n/v/d, positive dark tarry stools NEURO: Denies confusion, dizziness MSK: Denies weakness, joint pain/swelling Current Medications Current Medications Current Medications Medications (Trade) Dose Ordered Sig/Yulia Start Time Stop Time Status Last Admin Dose Admin Sodium Chloride 1,000 ml @ 1,000 mls/hr 1X ONCE 01/27/17 12:30 01/27/17 13:29 DC 01/27/17 13:00 1,000 MLS/HR Allergies Allergies Allergies Coded Allergies Type Severity Reaction Last Updated Verified No Known Drug Allergies 01/17/17 No Physical Exam Physical Exam GEN.: No apparent distress. Alert and oriented. HEENT: Head is normocephalic, atraumatic NECK: Supple. LUNGS: CTAB. HEART: Tachycardia, S1, S2 present. Peripheral pulses intact ABDOMEN: Soft, nontender. Positive bowel sounds. EXTREMITIES: Without any cyanosis. NEUROLOGIC: Normal speech, normal tone PSYCHIATRIC: Normal affect, normal mood. SKIN: No ulcerations Current Patient Data Vital Signs Vital Signs Date Time Temp Pulse Resp B/P (MAP) Pulse Ox O2 Delivery O2 Flow Rate FiO2 01/27/17 13:34 94 134/65 (88) 98 Room Air 01/27/17 12:05 98.0 18 98.0 Lab Values Laboratory Tests Test 01/27/17 12:55 White Blood Count 3.5 x10^3/uL (4.0-11.0) L Red Blood Count 2.68 x10^6/uL (4.30-5.70) L Hemoglobin 9.7 g/dL (13.0-17.5) L Hematocrit 29.5 % (39.0-53.0) L Mean Corpuscular Volume 110 fL (79-100) H Mean Corpuscular Hemoglobin 36 pg (25-35) H Mean Corpuscular Hemoglobin Concent 33 g/dL (31-37) Red Cell Distribution Width 27.6 % (11.5-14.5) H Platelet Count 15 x10^3/uL (140-400) *L Neutrophils (%) (Auto) 80 % (31-73) H Lymphocytes (%) (Auto) 15 % (24-48) L Monocytes (%) (Auto) 1 % (0-9) Eosinophils (%) (Auto) 4 % (0-3) H Basophils (%) (Auto) 1 % (0-3) Neutrophils # (Auto) 2.8 x10^3uL (1.8-7.7) Lymphocytes # (Auto) 0.5 x10^3/uL (1.0-4.8) L Monocytes # (Auto) 0.0 x10^3/uL (0.0-1.1) Eosinophils # (Auto) 0.1 x10^3/uL (0.0-0.7) Basophils # (Auto) 0.0 x10^3/uL (0.0-0.2) Platelet Estimate Pending Sodium Level 140 mmol/L (136-145) Potassium Level 3.7 mmol/L (3.5-5.1) Chloride Level 103 mmol/L (98-107) Carbon Dioxide Level 29 mmol/L (21-32) Anion Gap 8 (6-14) Blood Urea Nitrogen 21 mg/dL (8-26) Creatinine 1.0 mg/dL (0.7-1.3) Estimated GFR (Cockcroft-Gault) 89.9 BUN/Creatinine Ratio 21 (6-20) H Glucose Level 134 mg/dL (70-99) H Calcium Level 9.3 mg/dL (8.5-10.1) Total Bilirubin 0.4 mg/dL (0.2-1.0) Aspartate Amino Transferase (AST) 18 U/L (15-37) Alanine Aminotransferase (ALT) 35 U/L (16-63) Alkaline Phosphatase 83 U/L (46-116) Total Protein 7.4 g/dL (6.4-8.2) Albumin 3.7 g/dL (3.4-5.0) Albumin/Globulin Ratio 1.0 (1.0-1.7) Laboratory Tests 01/27/17 12:55 Laboratory Tests 01/27/17 12:55 EKG EKG [] Radiology/Procedures Radiology/Procedures [] Course & Med Decision Making Course & Med Decision Making Pertinent Labs and Imaging studies reviewed. (See chart for details) ED course: Patient was seen and examined emergency room CBC, CMP, type and screen were ordered 1415: Patient was updated on lab results and plan to admit and transfuse 1422: Discussed CC/HP/PMH with Dr. Hernández and recommends admit and consult oncology and GI 1445: Discussed CC/HP/PMH with Dr. Darden and recommends platelet transfusion [] Dragon Disclaimer Dragon Disclaimer This electronic medical record was generated, in whole or in part, using a voice recognition dictation system. Departure Departure Impression: Primary Impression: GI bleed Additional Impressions: Anemia Thrombocytopenia Disposition: 09 ADMITTED INPATIENT Admitting Physician: Marissa Hernández Condition: STABLE Referrals: IFEANYI SANTOS MD (PCP) Problem Qualifiers DEMETRA MC DO Jan 27, 2017 12:26
[2017-01-27] MEDS ORDERED: IV NORMAL SALINE 1000ML BAG 1,000 ML IV ONE (12:30)
--- NOTE | 2017-01-27 12:30 | EKG ---
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
[2017-01-27 13:18] LABS: BASO % 1 % (0-3); EOS % 4 % (0-3); HEMATOCRIT 29.5 % (39.0-53.0); HEMOGLOBIN 9.7 g/dL (13.0-17.5); LYMPH # 0.5 x10^3/uL (1.0-4.8); LYMPH % 15 % (24-48); MEAN CORPUSCULAR HEMOGLOBIN 36 pg (25-35); MEAN CORPUSCULAR HGB CONC 33 g/dL (31-37); MEAN CORPUSCULAR VOLUME 110 fL (79-100); MONO % 1 % (0-9); NEUT % 80 % (31-73); RED BLOOD COUNT 2.68 x10^6/uL (4.30-5.70); RED CELL DISTRIBUTION WIDTH 27.6 % (11.5-14.5); WHITE BLOOD COUNT 3.5 x10^3/uL (4.0-11.0)
[2017-01-27 13:19] LABS: CALCIUM 9.3 mg/dL (8.5-10.1); GFR 89.9; PLATELET COUNT 15 x10^3/uL (140-400); POTASSIUM 3.7 mmol/L (3.5-5.1)
[2017-01-27 13:25] LABS: ALBUMIN 3.7 g/dL (3.4-5.0); TOTAL BILIRUBIN 0.4 mg/dL (0.2-1.0); TOTAL PROTEIN 7.4 g/dL (6.4-8.2)
[2017-01-27] MEDS ORDERED: ONDANSETRON PF 4 MG/2 ML VIAL. IV PRN (14:30)
[2017-01-27] MEDS ORDERED: ACETAMINOPHEN 325 MG TABLET. PO PRN (14:30)
[2017-01-27] MEDS ORDERED: MORPHINE SULFATE 4 MG/ML DISP.SYRIN. IV PRN (14:30)
[2017-01-27] MEDS ORDERED: LIDO15SO2 MM (15:47)
[2017-01-27] MEDS ORDERED: SERT100T PO (15:47)
[2017-01-27 15:50] VITALS: BP 148/55
[2017-01-27] MEDS ORDERED: DIPH-121 PO (15:54)
[2017-01-27] MEDS ORDERED: ACET325T9 PO (15:54)
[2017-01-27] MEDS ORDERED: MAG355OR12 PO (15:54)
[2017-01-27] MEDS ORDERED: FERR-26 PO (15:54)
--- NOTE | 2017-01-27 15:54 | PDOC2 ---
GI CONSULT Reason For Consult: GI Bleed HPI: HPI: 66 y/o male w/ MDS who has previously been evaluated by Dr. Su. Follows w / Dr. Darden, has injections on MWF for leukopenia and is considering additional treatments/clinical trials. Says had labs earlier this week (on 01/25) showing Hgb 10.5 and plt 16. Stools are always black because he takes iron; however, he has noted a more tarry consistency x 2 days (2 stools each morning). He's had similar symptoms in the past w/ a significant drop in Hgb, so he came to the ER for further evaluation. No abd pain, n/v, hematochezia, change in appetite or weight. No increase in fatigue or SOA above his "baseline with MDS. " H/o GERD controlled w/ omeprazole, last EGD in 2012 (biopsies negative for H. pylori). No NSAIDs. H/o Hep C s/p Harvoni tx. Last colonoscopy in 2012 w/ adenomatous polyps. Also has h/o C Diff. Last seen by GI during admission for similar (except had vomiting at that time w/ significantly lower Hgb) in 11/2016 ; small bowel angiodysplasiae suggested as possible source, consideration for double-balloon endoscopy if desired. Labs: WBC 3.5, Hgb 9.7, plt 15, normal BUN and Cr. Dr. Darden to see, plt transfusion planned. PMH: PMH: MDS/pancytopenia, HTN, HLD, GERD, Hep C (treated), C Diff, OA, tonsillectomy, eye surgery, bone marrow bx FH: Family History: Cancer Social History: Smoke: No ALCOHOL: occassional Drugs: None ROS: GEN: Denies fevers, chills, sweats HEENT: Denies blurred vision, sore throat CV: Denies chest pain RESP: Denies shortness of air, cough GI: Per HPI : Denies hematuria, dysuria ENDO: Denies weight changes NEURO: Denies confusion, dizziness MSK: Denies weakness, joint pain/swelling SKIN: Denies jaundice, pruritus Vitals: Vitals: Vital Signs Date Time Temp Pulse Resp B/P (MAP) Pulse Ox O2 Delivery O2 Flow Rate FiO2 01/27/17 15:04 80 138/86 (103) 99 Room Air 01/27/17 12:05 98.0 18 98.0 Labs: Labs: Laboratory Tests Test 01/27/17 12:55 White Blood Count 3.5 x10^3/uL (4.0-11.0) Red Blood Count 2.68 x10^6/uL (4.30-5.70) Hemoglobin 9.7 g/dL (13.0-17.5) Hematocrit 29.5 % (39.0-53.0) Mean Corpuscular Volume 110 fL (79-100) Mean Corpuscular Hemoglobin 36 pg (25-35) Mean Corpuscular Hemoglobin Concent 33 g/dL (31-37) Red Cell Distribution Width 27.6 % (11.5-14.5) Platelet Count 15 x10^3/uL (140-400) Neutrophils (%) (Auto) 80 % (31-73) Lymphocytes (%) (Auto) 15 % (24-48) Monocytes (%) (Auto) 1 % (0-9) Eosinophils (%) (Auto) 4 % (0-3) Basophils (%) (Auto) 1 % (0-3) Neutrophils # (Auto) 2.8 x10^3uL (1.8-7.7) Lymphocytes # (Auto) 0.5 x10^3/uL (1.0-4.8) Monocytes # (Auto) 0.0 x10^3/uL (0.0-1.1) Eosinophils # (Auto) 0.1 x10^3/uL (0.0-0.7) Basophils # (Auto) 0.0 x10^3/uL (0.0-0.2) Sodium Level 140 mmol/L (136-145) Potassium Level 3.7 mmol/L (3.5-5.1) Chloride Level 103 mmol/L (98-107) Carbon Dioxide Level 29 mmol/L (21-32) Anion Gap 8 (6-14) Blood Urea Nitrogen 21 mg/dL (8-26) Creatinine 1.0 mg/dL (0.7-1.3) Estimated GFR (Cockcroft-Gault) 89.9 BUN/Creatinine Ratio 21 (6-20) Glucose Level 134 mg/dL (70-99) Calcium Level 9.3 mg/dL (8.5-10.1) Total Bilirubin 0.4 mg/dL (0.2-1.0) Aspartate Amino Transf (AST/SGOT) 18 U/L (15-37) Alanine Aminotransferase (ALT/SGPT) 35 U/L (16-63) Alkaline Phosphatase 83 U/L (46-116) Total Protein 7.4 g/dL (6.4-8.2) Albumin 3.7 g/dL (3.4-5.0) Albumin/Globulin Ratio 1.0 (1.0-1.7) Allergies: Coded Allergies: No Known Drug Allergies (Unverified , 01/17/17) Medications: Current Medications Medications (Trade) Dose Ordered Sig/Yulia Route PRN Reason Start Time Stop Time Status Last Admin Dose Admin Sodium Chloride 1,000 ml @ 1,000 mls/hr 1X ONCE IV 01/27/17 12:30 01/27/17 13:29 DC 01/27/17 13:00 PE: GEN: NAD HEENT: Atraumatic, PERRL LUNGS: CTAB HEART: RRR ABD: NABS, S/ND/NT EXTREMITY: No edema SKIN: No rashes, no jaundice NEURO/PSYCH: A & O 3 A/P: A/P: MDS, pancytopenia, melena -tarry stools x 2 days, Hgb stable w/ normal BUN, plt 16 -last EGD and colonoscopy in 2012 -- Continue per Dr. Darden, monitor labs. Okay to feed per GI, no plans for EGD or colonoscopy. KULWANT SEBASTIAN Jan 27, 2017 15:54
[2017-01-27] MEDS: PANTOPRAZOLE 40 MG TABLET.DR. PO SCH (16:30)
[2017-01-27 17:24] LABS: ANISOCYTOSIS MARKED; HYPOCHROMIA SLIGHT; PLT ESTIMATE DECREASED (ADEQUATE); POLYCHROMASIA SLIGHT
[2017-01-27 17:30] VITALS: BP 122/69
--- NOTE | 2017-01-27 17:35 | PDOC2 ---
CONSULT Date of Consult Date of Consult DATE: 01/27/17 TIME: 17:31 Past Medical History Cardiovascular: HTN, Hyperlipidemia Pulmonary: Pneumonia GI: GERD, GI bleed, Other Heme/Onc: Other Hepatobiliary: Hep A/B/C Musculoskeletal: low back pain, Osteoarthritis Past Surgical History Past Surgical History: Cataract Removal, Tonsillectomy Family History Family History: Cancer, Diabetes, Hypertension, Stroke Social History No ALCOHOL: occassional Drugs: None Lives: with Family Current Problem List Problem List Problems Medical Problems: (1) Anemia Status: Acute (2) GI bleed Status: Acute (3) Thrombocytopenia Status: Acute Current Medications Current Medications Current Medications Sodium Chloride 1,000 ml @ 1,000 mls/hr 1X ONCE IV Last administered on t 13:00; Start 01/27/17 at 12:30; Stop 01/27/17 at 13:29; Status DC Ondansetron HCl (Zofran) 4 mg PRN Q8HRS PRN IV NAUSEA/VOMITING; Start 01/27/17 at 14:30; Stop 01/28/17 at 14:29 Morphine Sulfate 4 mg PRN Q2HR PRN IV PAIN; Start 01/27/17 at 14:30; Stop at 14:29 Acetaminophen (Tylenol) 650 mg PRN Q4HRS PRN PO FEVER; Start 01/27/17 at 14:30; Stop 01/28/17 at 14:29 Pantoprazole Sodium (Protonix) 40 mg DAILYAC PO ; Start 01/27/17 at 16:30 Tbo-Filgrastim (Granix) 480 mcg QHS SQ ; Start 01/27/17 at 21:00; Status UNV Active Scripts Active Reported Ferrous Sulfate 325 Mg Tablet 325 Mg PO Tylenol (Acetaminophen) 325 Mg Tablet 325 Mg PO PRN Benadryl Allergy (Diphenhydramine Hcl) 12.5 Mg/5 Ml Liquid 12.5 Mg PO QIDPRN PRN Mixing with Lidocaine and Maalox to make magic mouthwash. Maalox Maximum Strength Susp (Mag Hydrox/Al Hydrox/Simeth) 355 Ml Oral.susp 10 Ml PO QIDPRN PRN Mixing with Benadryl and Lidocaine to make magic mouthwash Lidocaine HCl Viscous (Lidocaine HCl) 15 Ml Solution 10 Ml MM QIDPRN PRN Mixing with Maalox and Benadryl at home to make Magic Mouthwash. (was too expensive as a compound) Zoloft (Sertraline Hcl) 100 Mg Tablet 100 Mg PO DAILY Trazodone Hcl 100 Mg Tablet 100 Mg PO HS Baclofen 10 Mg Tablet 1 Tab PO TID Amlodipine Besylate 5 Mg Tablet 5 Mg PO DAILY Flomax (Tamsulosin Hcl) 0.4 Mg Cap.er.24h 1 Cap PO DAILY Omeprazole 40 Mg Capsule.dr 1 Cap PO DAILY Hydrocodone-Apap 10-325 (Hydrocodone Bit/Acetaminophen) 1 Each Tablet 10- 325 Mg PO PRN Q6HRS PRN Atorvastatin Calcium 10 Mg Tablet 10 Mg PO DAILY Alprazolam 1 Mg Tablet 1 Mg PO PRN BID PRN Allergies Allergies: Coded Allergies: No Known Drug Allergies (Unverified , 01/17/17) Vitals VITALS Vital Signs Date Time Temp Pulse Resp B/P (MAP) Pulse Ox O2 Delivery O2 Flow Rate FiO2 01/27/17 15:50 98.5 84 18 148/55 (86) 98 Room Air 98.5 Labs Labs Laboratory Tests Test 01/27/17 12:55 White Blood Count 3.5 x10^3/uL (4.0-11.0) Red Blood Count 2.68 x10^6/uL (4.30-5.70) Hemoglobin 9.7 g/dL (13.0-17.5) Hematocrit 29.5 % (39.0-53.0) Mean Corpuscular Volume 110 fL (79-100) Mean Corpuscular Hemoglobin 36 pg (25-35) Mean Corpuscular Hemoglobin Concent 33 g/dL (31-37) Red Cell Distribution Width 27.6 % (11.5-14.5) Platelet Count 15 x10^3/uL (140-400) Neutrophils (%) (Auto) 80 % (31-73) Lymphocytes (%) (Auto) 15 % (24-48) Monocytes (%) (Auto) 1 % (0-9) Eosinophils (%) (Auto) 4 % (0-3) Basophils (%) (Auto) 1 % (0-3) Neutrophils # (Auto) 2.8 x10^3uL (1.8-7.7) Lymphocytes # (Auto) 0.5 x10^3/uL (1.0-4.8) Monocytes # (Auto) 0.0 x10^3/uL (0.0-1.1) Eosinophils # (Auto) 0.1 x10^3/uL (0.0-0.7) Basophils # (Auto) 0.0 x10^3/uL (0.0-0.2) Platelet Estimate Decreased (ADEQUATE) Polychromasia Slight Hypochromasia Slight Anisocytosis Marked Macrocytosis Slight Sodium Level 140 mmol/L (136-145) Potassium Level 3.7 mmol/L (3.5-5.1) Chloride Level 103 mmol/L (98-107) Carbon Dioxide Level 29 mmol/L (21-32) Anion Gap 8 (6-14) Blood Urea Nitrogen 21 mg/dL (8-26) Creatinine 1.0 mg/dL (0.7-1.3) Estimated GFR (Cockcroft-Gault) 89.9 BUN/Creatinine Ratio 21 (6-20) Glucose Level 134 mg/dL (70-99) Calcium Level 9.3 mg/dL (8.5-10.1) Total Bilirubin 0.4 mg/dL (0.2-1.0) Aspartate Amino Transf (AST/SGOT) 18 U/L (15-37) Alanine Aminotransferase (ALT/SGPT) 35 U/L (16-63) Alkaline Phosphatase 83 U/L (46-116) Total Protein 7.4 g/dL (6.4-8.2) Albumin 3.7 g/dL (3.4-5.0) Albumin/Globulin Ratio 1.0 (1.0-1.7) Laboratory Tests Test 01/27/17 12:55 White Blood Count 3.5 x10^3/uL (4.0-11.0) Red Blood Count 2.68 x10^6/uL (4.30-5.70) Hemoglobin 9.7 g/dL (13.0-17.5) Hematocrit 29.5 % (39.0-53.0) Mean Corpuscular Volume 110 fL (79-100) Mean Corpuscular Hemoglobin 36 pg (25-35) Mean Corpuscular Hemoglobin Concent 33 g/dL (31-37) Red Cell Distribution Width 27.6 % (11.5-14.5) Platelet Count 15 x10^3/uL (140-400) Neutrophils (%) (Auto) 80 % (31-73) Lymphocytes (%) (Auto) 15 % (24-48) Monocytes (%) (Auto) 1 % (0-9) Eosinophils (%) (Auto) 4 % (0-3) Basophils (%) (Auto) 1 % (0-3) Neutrophils # (Auto) 2.8 x10^3uL (1.8-7.7) Lymphocytes # (Auto) 0.5 x10^3/uL (1.0-4.8) Monocytes # (Auto) 0.0 x10^3/uL (0.0-1.1) Eosinophils # (Auto) 0.1 x10^3/uL (0.0-0.7) Basophils # (Auto) 0.0 x10^3/uL (0.0-0.2) Platelet Estimate Decreased (ADEQUATE) Polychromasia Slight Hypochromasia Slight Anisocytosis Marked Macrocytosis Slight Sodium Level 140 mmol/L (136-145) Potassium Level 3.7 mmol/L (3.5-5.1) Chloride Level 103 mmol/L (98-107) Carbon Dioxide Level 29 mmol/L (21-32) Anion Gap 8 (6-14) Blood Urea Nitrogen 21 mg/dL (8-26) Creatinine 1.0 mg/dL (0.7-1.3) Estimated GFR (Cockcroft-Gault) 89.9 BUN/Creatinine Ratio 21 (6-20) Glucose Level 134 mg/dL (70-99) Calcium Level 9.3 mg/dL (8.5-10.1) Total Bilirubin 0.4 mg/dL (0.2-1.0) Aspartate Amino Transf (AST/SGOT) 18 U/L (15-37) Alanine Aminotransferase (ALT/SGPT) 35 U/L (16-63) Alkaline Phosphatase 83 U/L (46-116) Total Protein 7.4 g/dL (6.4-8.2) Albumin 3.7 g/dL (3.4-5.0) Albumin/Globulin Ratio 1.0 (1.0-1.7) Assessment/Plan Assessment/Plan Assessment/Plan DATE OF CONSULTATION: 01/27/2017 MEDICAL ONCOLOGY CONSULTATION REPORT: REQUESTING PHYSICIAN: Marissa Hernández M.D. REASON FOR CONSULTATION: MDS and severe anemia and Melena HISTORY OF PRESENT ILLNESS: The patient is a 66-year-old gentleman, who has history of hepatitis C and splenomegaly. In view of persistent pancytopenia, he underwent a bone marrow aspiration and biopsy on 01/14/2015, which revealed myelodysplastic syndrome with trisomy 8 and translocation 1;16. In view of severe thrombocytopenia of 19,000 platelets, he was started on chemotherapy with Vidaza on 06/30/2015. Chemo with vidaza started 06/30/15. He was admitted to [facility] for GI bleed and discharged on 07/28/15. s/p C6 completed 12/17/15. Decreased dose of vidaza to 65 mg/m2 with C5 due to infection. s/p C9 of vidaza 04/19/16. No response, I d/c'ed vidaza. He is on observation He was admitted 09/21/2015 with fever and discharged. He was admitted on 12/31/15 with severe anemia 5.9 and fever. He was diagnosed with C-diff. He was admitted on 01/15/2016 with following complaints: On 01/12/16 noticed trouble with writing and speaking. Intermittently he has trouble getting his words out and he has had trouble writing. Improved after discontinuing Wellbutrin. He was admitted 12/05/16 with severe anemia with Hb 5.9. He was evaluated in ER for weakness, admitted to ICU. Hgb was 5.9, 7.7 after transfusions. Per ER note, Hgb was 10.3 on 11/29 and 8.5 on 12/03. Additional labs: plt 19, INR 1.2, BUN 44, Cr 1.1, glucose 200. Dr. Su has seen for similar in the past. Usually has dark stools with iron, perhaps a little more "sticky" consistency over the past 2 days. Long h/o poor appetite, no change in this, also denies weight loss. Denies hematemesis. No abdominal pain. (GI-sanchez has h/o GERD on omeprazole QD w/ last EGD in 2012; biopsies negative for H. pylori at that time. No NSAIDs or ASA, takes hydrocodone for pain. H/o Hep C treated w/ Cheryl. Last colonoscopy also in 2013 w/ adenomatous polyps. Has had C Diff in the past. He denies abdominal pain. No hematemesis. No hemoptysis. No hematuria. He was admitted on 01/27/17 with h/o black stools for 1 day duration. GI consulted: probable AV malformation suspected. No EGD planned. Plt 15 on 01/27/17. Platelets transfused. PAST MEDICAL HISTORY: Arthritis, hepatitis C, GERD, hypercholesterolemia, hypertension, and MDS as described above. SOCIAL HISTORY: He drinks alcohol occasionally. FAMILY HISTORY: Negative for myelodysplastic syndrome. REVIEW OF SYSTEMS: A 14-point review of system was performed. Pertinent positives are mentioned in the history of present illness. Rest of the system review is negative. PHYSICAL EXAMINATION: GENERAL APPEARANCE: The patient is a 66-year-old gentleman, who is in no acute cardiorespiratory distress. VITAL SIGNS: reviewed. HEENT: Head, atraumatic and normocephalic. Eyes, no icterus. NECK: Supple. CHEST: Bilaterally symmetrical. HEART: S1 and S2 normal. ABDOMEN: Soft and nontender. CENTRAL NERVOUS SYSTEM: No focal deficits. LYMPHATICS: No lymphadenopathy. SKIN: No rashes. PSYCHOLOGIC: Mood and affect are appropriate. MUSCULOSKELETAL: No joint effusions. IMPRESSION AND PLAN: 1. Myelodysplastic syndrome. He was started on chemotherapy with Vidaza on 06/30/2015. Chemo with vidaza started 06/30/15. s/p C9 of vidaza 04/19/16. No response, I d/c'ed vidaza. He is on observation. 2.Anemia I agree to monitor hemoglobin and transfuse as needed. Hb 9.7. 3. Thrombocytopenia, secondary to myelodysplastic syndrome and splenomegaly due to hepatitis C. Plt 15 on 01/27/17. Platelets transfused. Plan to keep Plt >20 due to GI bleed. 4. Neutropenia, secondary to myelodysplastic syndrome. WBC now 3.7. Monitor. Plan Granix x 1 dose 01/27/17. I d/w OSITO PERDUE MD Jan 27, 2017 17:35
[2017-01-27 17:45] VITALS: BP 124/75
[2017-01-27 17:49] LABS: % SAT IRON 44 % (15-34); IRON,SERUM 129 ug/dL (65-175)
[2017-01-27 18:00] VITALS: BP 122/70
[2017-01-27 18:02] LABS: BILIRUBIN,URINE NEGATIVE (NEG); GLUCOSE,URINE NEGATIVE (NEG); NITRITE,URINE NEGATIVE (NEG); PROTEIN,URINE NEGATIVE (NEG-TRACE); UROBILINOGEN,URINE 0.2 mg/dL (0.2 mg/dL)
[2017-01-27 18:10] LABS: BACTERIA,URINE 0 /HPF (0-FEW); RBC,URINE 0 /HPF (0-2); SQUAMOUS EPITHELIAL CELL,UR OCC /LPF; WBC,URINE OCC /HPF (0-4)
[2017-01-27 18:59] LABS: FOLATE 14.17 ng/ml (3.2-20.0)
[2017-01-27 19:05] VITALS: BP 124/64
[2017-01-27] MEDS: ATORVASTATIN CALCIUM 10 MG TABLET. PO SCH (21:00)
[2017-01-27] MEDS: BACLOFEN 10 MG TABLET. PO SCH (21:00)
[2017-01-27] MEDS: ALPRAZolam 1 MG TABLET PO PRN (21:24)
[2017-01-27] MEDS: traZODone 100 MG TABLET. PO SCH (21:24)
[2017-01-27] MEDS: HYDROcodone/APAP 10/325 1 TAB TABLET PO PRN (21:24)
[2017-01-27] MEDS: TBO-FILGRASTIM 480 MCG/0.8 ML SYRINGE. SQ SCH (21:24)
[2017-01-27 23:00] VITALS: BP 116/66
--- NOTE | 2017-01-28 02:30 | ACF ---
Admission Forms Criteria GASTROINTESTINAL BLEEDING Clinical Indications for Inpatient Care (Place 'X' for any and all applicable criteria): Ongoing inpatient care may be indicated for gastrointestinal bleeding with ANY ONE of the following (4)(20)(21)(22)(23)(24): [X ]I. Active bleeding (eg, fresh voluminous blood in emesis or nasogastric aspirate, or per rectum) [ ]II. Hemodynamic instability [ ]III. Anticoagulation therapy or coagulopathy ((eg, advanced liver disease, irreversible anticoagulation) [ ]IV. Ischemic colitis (22) [ ]V. Endoscopy showing arterial bleeding, adherent clot, nonbleeding visible vessel, varices, flat red spots, ulcer size greater than 2 cm, or portal hypertensive gastropathy [ ]. High-risk low platelet count [ ]VII. Anemia requiring inpatient care as indicated by ANY ONE of the following a)[ ] Cognitive impairment b)[ ] Syncope c)[ ] Heart failure d)[ ] Chest pain e)[ ] Dyspnea f)[ ] Other findings suggesting inadequate perfusion (eg, peripheral or myocardial ischemia, end organ dysfunction) [ ]VIII. High-risk low platelet count [ ]IX. Suspected variceal cause of bleeding as indicated by ANY ONE of the following(27)(28): a)[ ] Known varices b)[ ] Hepatomegaly or splenomegaly c)[ ] Ascites d)[ ] Jaundice or scleral icterus e)[ ] History of liver disease (eg, cirrhosis) f)[ ] Physical findings of portal hypertension (eg, caput medusa) g)[ ] Comorbid disorder indicating risk for portal vein thrombosis (eg , abdominal surgery, sepsis, shock, exchange transfusion, prior umbilical vein catheterization) Extended stay may be needed until ALL of the following are present(20)(38)(47): [ ]a) Hemodynamic stability [ ]b) No evidence of active bleeding (eg, stable Hematocrit) [ ]c) Platelet count, prothrombin time, and partial thromboplastin time acceptable for next level of care [ ]d) Surgical or other acute intervention not needed [ ]e) Oral hydration and diet tolerated The original [employer] content created by [employer] has been revised. The portions of the content which have been revised are identified through the use of italic text or in bold, and [employer] has neither reviewed nor approved the modified material. All other unmodified content is copyright [facility]. Please see references footnoted in the original [facility] edition 2016 Admission Criteria Met?: Yes PARISH MAGUIRE Jan 28, 2017 02:30
[2017-01-28 02:58] VITALS: BP 107/57
[2017-01-28 05:42] LABS: BASO # 0.1 x10^3/uL (0.0-0.2); BASO % 0 % (0-3); EOS % 1 % (0-3); HEMATOCRIT 24.9 % (39.0-53.0); HEMOGLOBIN 8.4 g/dL (13.0-17.5); LYMPH % 9 % (24-48); MEAN CORPUSCULAR HEMOGLOBIN 36 pg (25-35); MEAN CORPUSCULAR HGB CONC 34 g/dL (31-37); MEAN CORPUSCULAR VOLUME 107 fL (79-100); MONO % 0 % (0-9); NEUT % 90 % (31-73); PLATELET COUNT 50 x10^3/uL (140-400); RED BLOOD COUNT 2.34 x10^6/uL (4.30-5.70); RED CELL DISTRIBUTION WIDTH 28.2 % (11.5-14.5); WHITE BLOOD COUNT 12.1 x10^3/uL (4.0-11.0)
[2017-01-28 06:24] LABS: CALCIUM 8.8 mg/dL (8.5-10.1); CREATININE 0.8 mg/dL (0.7-1.3); GFR 116.3; POTASSIUM 3.7 mmol/L (3.5-5.1)
[2017-01-28 07:00] VITALS: BP 119/78
[2017-01-28 07:28] LABS: NUCLEATED RBC 1; PLT ESTIMATE DECREASED (ADEQUATE)
[2017-01-28 07:32] LABS: ANISOCYTOSIS MOD; TOXIC GRANULATION PRESENT; TOXIC VACUOLATION PRESENT
--- NOTE | 2017-01-28 08:26 | PDOC ---
PROGRESS NOTES Subjective Subjective c/c - f/u of MDS ROS - no fever Objective Objective Vital Signs Date Time Temp Pulse Resp B/P (MAP) Pulse Ox O2 Delivery O2 Flow Rate FiO2 01/28/17 07:00 96.2 78 18 119/78 (92) 100 Room Air 96.2 Physical Exam Heart: Normal S1, Normal S2 General: Alert, Oriented X3 Lungs: Clear to auscultation Neuro: Normal speech Psych/Mental Status: Mental status NL Assessment Assessment Problems Medical Problems: (1) Anemia Status: Acute (2) GI bleed Status: Acute (3) Thrombocytopenia Status: Acute IMPRESSION AND PLAN: 1. Myelodysplastic syndrome. He was started on chemotherapy with Vidaza on 06/30/2015. Chemo with vidaza started 06/30/15. s/p C9 of vidaza 04/19/16. No response, I d/c'ed vidaza. He is on observation. 2.Anemia I agree to monitor hemoglobin and transfuse as needed. Hb 9.7 on and worse at 8.4 on 01/28/17. Monitor Hb and transfuse if <7.0. f/u cbc tomorrow and if stable and no active bleed he can be discharged. 3. Thrombocytopenia, secondary to myelodysplastic syndrome and splenomegaly due to hepatitis C. Plt 15 on 01/27/17. Platelets transfused. Plan to keep Plt >20 due to GI bleed. 4. Neutropenia, secondary to myelodysplastic syndrome. WBC 3.7 on 01/27/17. Monitor. s/p Granix x 1 dose 01/27/17. WBC improved to 12.1 on 01/28/17. 5. GI bleed. Comment Review of Relevant I have reviewed the following items ifeanyi (where applicable) has been applied. Labs Laboratory Tests Test 01/27/17 12:52 01/27/17 12:55 01/27/17 15:30 01/28/17 05:30 Iron Level 129 ug/dL (65-175) Total Iron Binding Capacity 295 ug/dL (250-450) Iron Saturation 44 % (15-34) Ferritin 260 ng/mL (26-388) Vitamin B12 Level 1139 pg/mL (247-911) Serum Folate 14.17 ng/ml (3.2-20.0) White Blood Count 3.5 x10^3/uL (4.0-11.0) 12.1 x10^3/uL (4.0-11.0) Red Blood Count 2.68 x10^6/uL (4.30-5.70) 2.34 x10^6/uL (4.30-5.70) Hemoglobin 9.7 g/dL (13.0-17.5) 8.4 g/dL (13.0-17.5) Hematocrit 29.5 % (39.0-53.0) 24.9 % (39.0-53.0) Mean Corpuscular Volume 110 fL (79-100) 107 fL (79-100) Mean Corpuscular Hemoglobin 36 pg (25-35) 36 pg (25-35) Mean Corpuscular Hemoglobin Concent 33 g/dL (31-37) 34 g/dL (31-37) Red Cell Distribution Width 27.6 % (11.5-14.5) 28.2 % (11.5-14.5) Platelet Count 15 x10^3/uL (140-400) 50 x10^3/uL (140-400) Neutrophils (%) (Auto) 80 % (31-73) 90 % (31-73) Lymphocytes (%) (Auto) 15 % (24-48) 9 % (24-48) Monocytes (%) (Auto) 1 % (0-9) 0 % (0-9) Eosinophils (%) (Auto) 4 % (0-3) 1 % (0-3) Basophils (%) (Auto) 1 % (0-3) 0 % (0-3) Neutrophils # (Auto) 2.8 x10^3uL (1.8-7.7) 10.9 x10^3uL (1.8-7.7) Lymphocytes # (Auto) 0.5 x10^3/uL (1.0-4.8) 1.0 x10^3/uL (1.0-4.8) Monocytes # (Auto) 0.0 x10^3/uL (0.0-1.1) 0.0 x10^3/uL (0.0-1.1) Eosinophils # (Auto) 0.1 x10^3/uL (0.0-0.7) 0.2 x10^3/uL (0.0-0.7) Basophils # (Auto) 0.0 x10^3/uL (0.0-0.2) 0.1 x10^3/uL (0.0-0.2) Platelet Estimate Decreased (ADEQUATE) Decreased (ADEQUATE) Polychromasia Slight Hypochromasia Slight Anisocytosis Marked Mod Macrocytosis Slight Present Reticulocyte Count (auto) 1.6 % (0.5-2.5) Sodium Level 140 mmol/L (136-145) 140 mmol/L (136-145) Potassium Level 3.7 mmol/L (3.5-5.1) 3.7 mmol/L (3.5-5.1) Chloride Level 103 mmol/L (98-107) 103 mmol/L (98-107) Carbon Dioxide Level 29 mmol/L (21-32) 30 mmol/L (21-32) Anion Gap 8 (6-14) 7 (6-14) Blood Urea Nitrogen 21 mg/dL (8-26) 17 mg/dL (8-26) Creatinine 1.0 mg/dL (0.7-1.3) 0.8 mg/dL (0.7-1.3) Estimated GFR (Cockcroft-Gault) 89.9 116.3 BUN/Creatinine Ratio 21 (6-20) Glucose Level 134 mg/dL (70-99) 105 mg/dL (70-99) Calcium Level 9.3 mg/dL (8.5-10.1) 8.8 mg/dL (8.5-10.1) Total Bilirubin 0.4 mg/dL (0.2-1.0) Aspartate Amino Transf (AST/SGOT) 18 U/L (15-37) Alanine Aminotransferase (ALT/SGPT) 35 U/L (16-63) Alkaline Phosphatase 83 U/L (46-116) Total Protein 7.4 g/dL (6.4-8.2) Albumin 3.7 g/dL (3.4-5.0) Albumin/Globulin Ratio 1.0 (1.0-1.7) Urine Color Yellow Urine Clarity Clear Urine pH 7.0 Urine Specific [place] 1.010 Urine Protein Negative mg/dL (NEG-TRACE) Urine Glucose (UA) Negative mg/dL (NEG) Urine Ketones (Stick) Negative mg/dL (NEG) Urine Blood Negative (NEG) Urine Nitrite Negative (NEG) Urine Bilirubin Negative (NEG) Urine Urobilinogen Dipstick 0.2 mg/dL (0.2 mg/dL) Urine Leukocyte Esterase Negative (NEG) Urine RBC 0 /HPF (0-2) Urine WBC Occ /HPF (0-4) Urine Squamous Epithelial Cells Occ /LPF Urine Amorphous Sediment Present /HPF Urine Bacteria 0 /HPF (0-FEW) Segmented Neutrophils % 89 % (35-66) Band Neutrophils % 1 % (0-9) Lymphocytes % 10 % (24-48) Nucleated Red Blood Cells 1 Toxic Granulation Present Toxic Vacuolation Present Dohle Bodies Present Basophilic Stippling Present Laboratory Tests Test 01/27/17 12:52 01/27/17 12:55 01/27/17 15:30 01/28/17 05:30 Iron Level 129 ug/dL (65-175) Total Iron Binding Capacity 295 ug/dL (250-450) Iron Saturation 44 % (15-34) Ferritin 260 ng/mL (26-388) Vitamin B12 Level 1139 pg/mL (247-911) Serum Folate 14.17 ng/ml (3.2-20.0) White Blood Count 3.5 x10^3/uL (4.0-11.0) 12.1 x10^3/uL (4.0-11.0) Red Blood Count 2.68 x10^6/uL (4.30-5.70) 2.34 x10^6/uL (4.30-5.70) Hemoglobin 9.7 g/dL (13.0-17.5) 8.4 g/dL (13.0-17.5) Hematocrit 29.5 % (39.0-53.0) 24.9 % (39.0-53.0) Mean Corpuscular Volume 110 fL (79-100) 107 fL (79-100) Mean Corpuscular Hemoglobin 36 pg (25-35) 36 pg (25-35) Mean Corpuscular Hemoglobin Concent 33 g/dL (31-37) 34 g/dL (31-37) Red Cell Distribution Width 27.6 % (11.5-14.5) 28.2 % (11.5-14.5) Platelet Count 15 x10^3/uL (140-400) 50 x10^3/uL (140-400) Neutrophils (%) (Auto) 80 % (31-73) 90 % (31-73) Lymphocytes (%) (Auto) 15 % (24-48) 9 % (24-48) Monocytes (%) (Auto) 1 % (0-9) 0 % (0-9) Eosinophils (%) (Auto) 4 % (0-3) 1 % (0-3) Basophils (%) (Auto) 1 % (0-3) 0 % (0-3) Neutrophils # (Auto) 2.8 x10^3uL (1.8-7.7) 10.9 x10^3uL (1.8-7.7) Lymphocytes # (Auto) 0.5 x10^3/uL (1.0-4.8) 1.0 x10^3/uL (1.0-4.8) Monocytes # (Auto) 0.0 x10^3/uL (0.0-1.1) 0.0 x10^3/uL (0.0-1.1) Eosinophils # (Auto) 0.1 x10^3/uL (0.0-0.7) 0.2 x10^3/uL (0.0-0.7) Basophils # (Auto) 0.0 x10^3/uL (0.0-0.2) 0.1 x10^3/uL (0.0-0.2) Platelet Estimate Decreased (ADEQUATE) Decreased (ADEQUATE) Polychromasia Slight Hypochromasia Slight Anisocytosis Marked Mod Macrocytosis Slight Present Reticulocyte Count (auto) 1.6 % (0.5-2.5) Sodium Level 140 mmol/L (136-145) 140 mmol/L (136-145) Potassium Level 3.7 mmol/L (3.5-5.1) 3.7 mmol/L (3.5-5.1) Chloride Level 103 mmol/L (98-107) 103 mmol/L (98-107) Carbon Dioxide Level 29 mmol/L (21-32) 30 mmol/L (21-32) Anion Gap 8 (6-14) 7 (6-14) Blood Urea Nitrogen 21 mg/dL (8-26) 17 mg/dL (8-26) Creatinine 1.0 mg/dL (0.7-1.3) 0.8 mg/dL (0.7-1.3) Estimated GFR (Cockcroft-Gault) 89.9 116.3 BUN/Creatinine Ratio 21 (6-20) Glucose Level 134 mg/dL (70-99) 105 mg/dL (70-99) Calcium Level 9.3 mg/dL (8.5-10.1) 8.8 mg/dL (8.5-10.1) Total Bilirubin 0.4 mg/dL (0.2-1.0) Aspartate Amino Transf (AST/SGOT) 18 U/L (15-37) Alanine Aminotransferase (ALT/SGPT) 35 U/L (16-63) Alkaline Phosphatase 83 U/L (46-116) Total Protein 7.4 g/dL (6.4-8.2) Albumin 3.7 g/dL (3.4-5.0) Albumin/Globulin Ratio 1.0 (1.0-1.7) Urine Color Yellow Urine Clarity Clear Urine pH 7.0 Urine Specific [place] 1.010 Urine Protein Negative mg/dL (NEG-TRACE) Urine Glucose (UA) Negative mg/dL (NEG) Urine Ketones (Stick) Negative mg/dL (NEG) Urine Blood Negative (NEG) Urine Nitrite Negative (NEG) Urine Bilirubin Negative (NEG) Urine Urobilinogen Dipstick 0.2 mg/dL (0.2 mg/dL) Urine Leukocyte Esterase Negative (NEG) Urine RBC 0 /HPF (0-2) Urine WBC Occ /HPF (0-4) Urine Squamous Epithelial Cells Occ /LPF Urine Amorphous Sediment Present /HPF Urine Bacteria 0 /HPF (0-FEW) Segmented Neutrophils % 89 % (35-66) Band Neutrophils % 1 % (0-9) Lymphocytes % 10 % (24-48) Nucleated Red Blood Cells 1 Toxic Granulation Present Toxic Vacuolation Present Dohle Bodies Present Basophilic Stippling Present Medications Current Medications Sodium Chloride 1,000 ml @ 1,000 mls/hr 1X ONCE IV Last administered on t 13:00; Start 01/27/17 at 12:30; Stop 01/27/17 at 13:29; Status DC Ondansetron HCl (Zofran) 4 mg PRN Q8HRS PRN IV NAUSEA/VOMITING; Start 01/27/17 at 14:30; Stop 01/28/17 at 14:29 Morphine Sulfate 4 mg PRN Q2HR PRN IV PAIN; Start 01/27/17 at 14:30; Stop at 14:29 Acetaminophen (Tylenol) 650 mg PRN Q4HRS PRN PO FEVER; Start 01/27/17 at 14:30; Stop 01/28/17 at 14:29 Pantoprazole Sodium (Protonix) 40 mg DAILYAC PO ; Start 01/27/17 at 16:30 Tbo-Filgrastim (Granix) 480 mcg QHS SQ Last administered on 01/27/17 21:24; Start 01/27/17 at 21:00 Alprazolam (Xanax) 1 mg PRN BID PRN PO ANXIETY Last administered on 01/27/17 21 :24; Start 01/27/17 at 20:45 Amlodipine Besylate (Norvasc) 5 mg DAILY PO ; Start 01/28/17 at 09:00 Atorvastatin Calcium (Lipitor) 10 mg QHS PO ; Start 01/27/17 at 21:00 Baclofen (Lioresal) 10 mg TID PO ; Start 01/27/17 at 21:00 Acetaminophen/ Hydrocodone Bitart (Lortab 10/325) 1 tab PRN Q6HRS PRN PO PAIN Last administered on 01/27/17 21:24; Start 01/27/17 at 20:45 Tamsulosin HCl (Flomax) 0.4 mg DAILY PO ; Start 01/28/17 at 09:00 Trazodone HCl (Desyrel) 100 mg HS PO Last administered on 01/27/17 21:24; Start 01/27/17 at 21:00 Non-Formulary Medication 1 cap DAILY PO ; Start 01/28/17 at 09:00; Status UNV Active Scripts Active Reported Ferrous Sulfate 325 Mg Tablet 325 Mg PO Tylenol (Acetaminophen) 325 Mg Tablet 325 Mg PO PRN Benadryl Allergy (Diphenhydramine Hcl) 12.5 Mg/5 Ml Liquid 12.5 Mg PO QIDPRN PRN Mixing with Lidocaine and Maalox to make magic mouthwash. Maalox Maximum Strength Susp (Mag Hydrox/Al Hydrox/Simeth) 355 Ml Oral.susp 10 Ml PO QIDPRN PRN Mixing with Benadryl and Lidocaine to make magic mouthwash Lidocaine HCl Viscous (Lidocaine HCl) 15 Ml Solution 10 Ml MM QIDPRN PRN Mixing with Maalox and Benadryl at home to make Magic Mouthwash. (was too expensive as a compound) Zoloft (Sertraline Hcl) 100 Mg Tablet 100 Mg PO DAILY Trazodone Hcl 100 Mg Tablet 100 Mg PO HS Baclofen 10 Mg Tablet 1 Tab PO TID Amlodipine Besylate 5 Mg Tablet 5 Mg PO DAILY Flomax (Tamsulosin Hcl) 0.4 Mg Cap.er.24h 1 Cap PO DAILY Omeprazole 40 Mg Capsule.dr 1 Cap PO DAILY Hydrocodone-Apap 10-325 (Hydrocodone Bit/Acetaminophen) 1 Each Tablet 10- 325 Mg PO PRN Q6HRS PRN Atorvastatin Calcium 10 Mg Tablet 10 Mg PO DAILY Alprazolam 1 Mg Tablet 1 Mg PO PRN BID PRN Vitals/I & O Vital Sign - Last 24 Hours 01/27/17 01/27/17 01/27/17 01/27/17 12:05 12:34 13:04 13:34 Temp 98.0 98.0 Pulse 123 102 96 94 Resp 18 B/P (MAP) 136/83 (100) 134/74 (94) 137/73 (94) 134/65 (88) Pulse Ox 99 96 96 98 O2 Delivery Room Air Room Air Room Air Room Air 01/27/17 01/27/17 01/27/17 01/27/17 14:04 14:34 15:04 15:34 Pulse 88 86 80 78 B/P (MAP) 139/66 (90) 130/63 (85) 138/86 (103) 151/63 (92) Pulse Ox 99 98 99 98 O2 Delivery Room Air Room Air Room Air Room Air 01/27/17 01/27/17 01/27/17 01/27/17 15:50 16:00 17:30 17:45 Temp 98.5 98.5 98.6 98.5 98.5 98.6 Pulse 84 74 88 Resp 18 16 16 B/P (MAP) 148/55 (86) 122/69 124/75 Pulse Ox 98 O2 Delivery Room Air Room Air 01/27/17 01/27/17 01/27/17 01/27/17 18:00 19:05 20:00 21:24 Temp 98.3 98.7 98.3 98.7 Pulse 79 83 Resp 16 18 B/P (MAP) 122/70 124/64 (84) Pulse Ox 99 99 O2 Delivery Room Air Room Air Room Air 01/27/17 01/28/17 01/28/17 23:00 02:58 07:00 Temp 98.4 98.5 96.2 98.4 98.5 96.2 Pulse 81 80 78 Resp 18 17 18 B/P (MAP) 116/66 (83) 107/57 (74) 119/78 (92) Pulse Ox 98 97 100 O2 Delivery Room Air Room Air Room Air OSITO HUFF MD Jan 28, 2017 08:26
[2017-01-28] MEDS: PANTOPRAZOLE 40 MG TABLET.DR. PO SCH (08:32)
[2017-01-28] MEDS: amLODIPine BESYLATE 5 MG TABLET PO SCH (08:32)
[2017-01-28] MEDS: BACLOFEN 10 MG TABLET. PO SCH ×3 (08:32→22:06)
[2017-01-28] MEDS: TAMSULOSIN 0.4 MG CAP.ER.24H. PO SCH (08:32)
[2017-01-28] MEDS: HYDROcodone/APAP 10/325 1 TAB TABLET PO PRN ×2 (08:44→22:55)
[2017-01-28] MEDS ORDERED: NON FORMULARY ITEM (Omeprazole 1 CAP) PO SCH (09:00)
--- NOTE | 2017-01-28 09:46 | PDOC1 ---
History and Physical Date of Admission Date of Admission 01/27/17 Identification/Chief Complaint Chief Complaint weakness, black stool Problems: Source Source: Patient History of Present Illness History of Present Illness Patient is a 66 year old M who presents with black tarry stools for the past 5 days. Patient has a history of myelodysplastic syndrome and was seen by his oncologist on Tuesday and his hemoglobin was 10.5 and his platelets were 16 however he has been having black tarry stools for the past 5 days to have gotten worse. Patient came in today to get his hemoglobin and platelets checked. Patient states his heart rate has been elevated however he denies any lightheadedness or dizziness or weakness. Patient denies any fevers. Patient denies any chest pain or shortness of breath. Patient denies any nausea/vomiting /diarrhea or abdominal pain. Patient has no other complaints. Past Medical History Cardiovascular: HTN, Hyperlipidemia Pulmonary: Pneumonia GI: GERD, GI bleed, Other Heme/Onc: Other Hepatobiliary: Hep A/B/C Past Surgical History Past Surgical History: Cataract Removal, Tonsillectomy Family History Family History: Cancer, Diabetes, Hypertension, Stroke Social History Smoke: No ALCOHOL: occassional Drugs: None Current Problem List Problem List Problems Medical Problems: (1) Anemia Status: Acute (2) GI bleed Status: Acute (3) Thrombocytopenia Status: Acute Current Medications Current Medications Current Medications Medications (Trade) Dose Ordered Sig/Yulia Start Time Stop Time Status Last Admin Dose Admin Acetaminophen (Tylenol) 650 mg PRN Q4HRS PRN 01/27/17 14:30 01/28/17 14:29 Acetaminophen/ Hydrocodone Bitart (Lortab 10/325) 1 tab PRN Q6HRS PRN 01/27/17 20:45 01/28/17 08:44 1 TAB Alprazolam (Xanax) 1 mg PRN BID PRN 01/27/17 20:45 01/27/17 21:24 1 MG Amlodipine Besylate (Norvasc) 5 mg DAILY 01/28/17 09:00 01/28/17 08:32 5 MG Atorvastatin Calcium (Lipitor) 10 mg QHS 01/27/17 21:00 Baclofen (Lioresal) 10 mg TID 01/27/17 21:00 01/28/17 08:32 10 MG Morphine Sulfate 4 mg PRN Q2HR PRN 01/27/17 14:30 01/28/17 14:29 Non-Formulary Medication 1 cap DAILY 01/28/17 09:00 UNV Ondansetron HCl (Zofran) 4 mg PRN Q8HRS PRN 01/27/17 14:30 01/28/17 14:29 Pantoprazole Sodium (Protonix) 40 mg DAILYAC 01/27/17 16:30 01/28/17 08:32 40 MG Sodium Chloride 1,000 ml @ 1,000 mls/hr 1X ONCE 01/27/17 12:30 01/27/17 13:29 DC 01/27/17 13:00 1,000 MLS/HR Tamsulosin HCl (Flomax) 0.4 mg DAILY 01/28/17 09:00 01/28/17 08:32 0.4 MG Tbo-Filgrastim (Granix) 480 mcg QHS 01/27/17 21:00 01/27/17 21:24 480 MCG Trazodone HCl (Desyrel) 100 mg HS 01/27/17 21:00 01/27/17 21:24 100 MG Allergies Allergies Allergies Coded Allergies Type Severity Reaction Last Updated Verified No Known Drug Allergies 01/17/17 No ROS Review of System CONSTITUTIONAL: No fever or chills EYES: No recent changes SKIN: No rash or itching CARDIOVASCULAR: No chest pain, syncope, palpitations, or edema RESPIRATORY: No SOB or cough GASTROINTESTINAL: No nausea, vomiting or abdominal pain but black stool NEUROLOGICAL: No headaches but has generalized weakness ENDOCRINE: No cold or heat intolerance GENITOURINARY: No urgency or frequency of urination MUSCULOSKELETAL: No back pain or joint pain LYMPHATICS: No enlarged lymph nodes PSYCHIATRIC: No anxiety or depression Physical Exam Physical Exam GEN.: No apparent distress. Alert and oriented. HEENT: Head is normocephalic, atraumatic NECK: Supple. LUNGS: Clear to auscultation. HEART: RRR, S1, S2 present. Peripheral pulses intact ABDOMEN: Soft, nontender. Positive bowel sounds. EXTREMITIES: Without any cyanosis. NEUROLOGIC: Normal speech, normal tone PSYCHIATRIC: Normal affect, normal mood. SKIN: No ulcerations Vitals Vitals Vital Signs Date Time Temp Pulse Resp B/P (MAP) Pulse Ox O2 Delivery O2 Flow Rate FiO2 9/8/17 08:44 Room Air 01/28/17 08:32 78 119/78 01/28/17 07:00 96.2 18 100 96.2 Labs Labs Laboratory Tests Test 01/27/17 12:52 01/27/17 12:55 01/27/17 15:30 01/28/17 05:30 Iron Level 129 ug/dL (65-175) Total Iron Binding Capacity 295 ug/dL (250-450) Iron Saturation 44 % (15-34) Ferritin 260 ng/mL (26-388) Vitamin B12 Level 1139 pg/mL (247-911) Serum Folate 14.17 ng/ml (3.2-20.0) White Blood Count 3.5 x10^3/uL (4.0-11.0) 12.1 x10^3/uL (4.0-11.0) Red Blood Count 2.68 x10^6/uL (4.30-5.70) 2.34 x10^6/uL (4.30-5.70) Hemoglobin 9.7 g/dL (13.0-17.5) 8.4 g/dL (13.0-17.5) Hematocrit 29.5 % (39.0-53.0) 24.9 % (39.0-53.0) Mean Corpuscular Volume 110 fL (79-100) 107 fL (79-100) Mean Corpuscular Hemoglobin 36 pg (25-35) 36 pg (25-35) Mean Corpuscular Hemoglobin Concent 33 g/dL (31-37) 34 g/dL (31-37) Red Cell Distribution Width 27.6 % (11.5-14.5) 28.2 % (11.5-14.5) Platelet Count 15 x10^3/uL (140-400) 50 x10^3/uL (140-400) Neutrophils (%) (Auto) 80 % (31-73) 90 % (31-73) Lymphocytes (%) (Auto) 15 % (24-48) 9 % (24-48) Monocytes (%) (Auto) 1 % (0-9) 0 % (0-9) Eosinophils (%) (Auto) 4 % (0-3) 1 % (0-3) Basophils (%) (Auto) 1 % (0-3) 0 % (0-3) Neutrophils # (Auto) 2.8 x10^3uL (1.8-7.7) 10.9 x10^3uL (1.8-7.7) Lymphocytes # (Auto) 0.5 x10^3/uL (1.0-4.8) 1.0 x10^3/uL (1.0-4.8) Monocytes # (Auto) 0.0 x10^3/uL (0.0-1.1) 0.0 x10^3/uL (0.0-1.1) Eosinophils # (Auto) 0.1 x10^3/uL (0.0-0.7) 0.2 x10^3/uL (0.0-0.7) Basophils # (Auto) 0.0 x10^3/uL (0.0-0.2) 0.1 x10^3/uL (0.0-0.2) Platelet Estimate Decreased (ADEQUATE) Decreased (ADEQUATE) Polychromasia Slight Hypochromasia Slight Anisocytosis Marked Mod Macrocytosis Slight Present Reticulocyte Count (auto) 1.6 % (0.5-2.5) Sodium Level 140 mmol/L (136-145) 140 mmol/L (136-145) Potassium Level 3.7 mmol/L (3.5-5.1) 3.7 mmol/L (3.5-5.1) Chloride Level 103 mmol/L (98-107) 103 mmol/L (98-107) Carbon Dioxide Level 29 mmol/L (21-32) 30 mmol/L (21-32) Anion Gap 8 (6-14) 7 (6-14) Blood Urea Nitrogen 21 mg/dL (8-26) 17 mg/dL (8-26) Creatinine 1.0 mg/dL (0.7-1.3) 0.8 mg/dL (0.7-1.3) Estimated GFR (Cockcroft-Gault) 89.9 116.3 BUN/Creatinine Ratio 21 (6-20) Glucose Level 134 mg/dL (70-99) 105 mg/dL (70-99) Calcium Level 9.3 mg/dL (8.5-10.1) 8.8 mg/dL (8.5-10.1) Total Bilirubin 0.4 mg/dL (0.2-1.0) Aspartate Amino Transf (AST/SGOT) 18 U/L (15-37) Alanine Aminotransferase (ALT/SGPT) 35 U/L (16-63) Alkaline Phosphatase 83 U/L (46-116) Total Protein 7.4 g/dL (6.4-8.2) Albumin 3.7 g/dL (3.4-5.0) Albumin/Globulin Ratio 1.0 (1.0-1.7) Urine Color Yellow Urine Clarity Clear Urine pH 7.0 Urine Specific [place] 1.010 Urine Protein Negative mg/dL (NEG-TRACE) Urine Glucose (UA) Negative mg/dL (NEG) Urine Ketones (Stick) Negative mg/dL (NEG) Urine Blood Negative (NEG) Urine Nitrite Negative (NEG) Urine Bilirubin Negative (NEG) Urine Urobilinogen Dipstick 0.2 mg/dL (0.2 mg/dL) Urine Leukocyte Esterase Negative (NEG) Urine RBC 0 /HPF (0-2) Urine WBC Occ /HPF (0-4) Urine Squamous Epithelial Cells Occ /LPF Urine Amorphous Sediment Present /HPF Urine Bacteria 0 /HPF (0-FEW) Segmented Neutrophils % 89 % (35-66) Band Neutrophils % 1 % (0-9) Lymphocytes % 10 % (24-48) Nucleated Red Blood Cells 1 Toxic Granulation Present Toxic Vacuolation Present Dohle Bodies Present Basophilic Stippling Present Laboratory Tests Test 01/27/17 12:52 01/27/17 12:55 01/27/17 15:30 01/28/17 05:30 Iron Level 129 ug/dL (65-175) Total Iron Binding Capacity 295 ug/dL (250-450) Iron Saturation 44 % (15-34) Ferritin 260 ng/mL (26-388) Vitamin B12 Level 1139 pg/mL (247-911) Serum Folate 14.17 ng/ml (3.2-20.0) White Blood Count 3.5 x10^3/uL (4.0-11.0) 12.1 x10^3/uL (4.0-11.0) Red Blood Count 2.68 x10^6/uL (4.30-5.70) 2.34 x10^6/uL (4.30-5.70) Hemoglobin 9.7 g/dL (13.0-17.5) 8.4 g/dL (13.0-17.5) Hematocrit 29.5 % (39.0-53.0) 24.9 % (39.0-53.0) Mean Corpuscular Volume 110 fL (79-100) 107 fL (79-100) Mean Corpuscular Hemoglobin 36 pg (25-35) 36 pg (25-35) Mean Corpuscular Hemoglobin Concent 33 g/dL (31-37) 34 g/dL (31-37) Red Cell Distribution Width 27.6 % (11.5-14.5) 28.2 % (11.5-14.5) Platelet Count 15 x10^3/uL (140-400) 50 x10^3/uL (140-400) Neutrophils (%) (Auto) 80 % (31-73) 90 % (31-73) Lymphocytes (%) (Auto) 15 % (24-48) 9 % (24-48) Monocytes (%) (Auto) 1 % (0-9) 0 % (0-9) Eosinophils (%) (Auto) 4 % (0-3) 1 % (0-3) Basophils (%) (Auto) 1 % (0-3) 0 % (0-3) Neutrophils # (Auto) 2.8 x10^3uL (1.8-7.7) 10.9 x10^3uL (1.8-7.7) Lymphocytes # (Auto) 0.5 x10^3/uL (1.0-4.8) 1.0 x10^3/uL (1.0-4.8) Monocytes # (Auto) 0.0 x10^3/uL (0.0-1.1) 0.0 x10^3/uL (0.0-1.1) Eosinophils # (Auto) 0.1 x10^3/uL (0.0-0.7) 0.2 x10^3/uL (0.0-0.7) Basophils # (Auto) 0.0 x10^3/uL (0.0-0.2) 0.1 x10^3/uL (0.0-0.2) Platelet Estimate Decreased (ADEQUATE) Decreased (ADEQUATE) Polychromasia Slight Hypochromasia Slight Anisocytosis Marked Mod Macrocytosis Slight Present Reticulocyte Count (auto) 1.6 % (0.5-2.5) Sodium Level 140 mmol/L (136-145) 140 mmol/L (136-145) Potassium Level 3.7 mmol/L (3.5-5.1) 3.7 mmol/L (3.5-5.1) Chloride Level 103 mmol/L (98-107) 103 mmol/L (98-107) Carbon Dioxide Level 29 mmol/L (21-32) 30 mmol/L (21-32) Anion Gap 8 (6-14) 7 (6-14) Blood Urea Nitrogen 21 mg/dL (8-26) 17 mg/dL (8-26) Creatinine 1.0 mg/dL (0.7-1.3) 0.8 mg/dL (0.7-1.3) Estimated GFR (Cockcroft-Gault) 89.9 116.3 BUN/Creatinine Ratio 21 (6-20) Glucose Level 134 mg/dL (70-99) 105 mg/dL (70-99) Calcium Level 9.3 mg/dL (8.5-10.1) 8.8 mg/dL (8.5-10.1) Total Bilirubin 0.4 mg/dL (0.2-1.0) Aspartate Amino Transf (AST/SGOT) 18 U/L (15-37) Alanine Aminotransferase (ALT/SGPT) 35 U/L (16-63) Alkaline Phosphatase 83 U/L (46-116) Total Protein 7.4 g/dL (6.4-8.2) Albumin 3.7 g/dL (3.4-5.0) Albumin/Globulin Ratio 1.0 (1.0-1.7) Urine Color Yellow Urine Clarity Clear Urine pH 7.0 Urine Specific [place] 1.010 Urine Protein Negative mg/dL (NEG-TRACE) Urine Glucose (UA) Negative mg/dL (NEG) Urine Ketones (Stick) Negative mg/dL (NEG) Urine Blood Negative (NEG) Urine Nitrite Negative (NEG) Urine Bilirubin Negative (NEG) Urine Urobilinogen Dipstick 0.2 mg/dL (0.2 mg/dL) Urine Leukocyte Esterase Negative (NEG) Urine RBC 0 /HPF (0-2) Urine WBC Occ /HPF (0-4) Urine Squamous Epithelial Cells Occ /LPF Urine Amorphous Sediment Present /HPF Urine Bacteria 0 /HPF (0-FEW) Segmented Neutrophils % 89 % (35-66) Band Neutrophils % 1 % (0-9) Lymphocytes % 10 % (24-48) Nucleated Red Blood Cells 1 Toxic Granulation Present Toxic Vacuolation Present Dohle Bodies Present Basophilic Stippling Present VTE Prophylaxis Ordered VTE Prophylaxis Devices: Contraindicated VTE Pharmacological Prophylaxi: Contraindicated Assessment/Plan Assessment/Plan 1- black stool likely due to low platelets and microbleed agree with transfusion 2. Myelodysplastic syndrome.No response to chemo , He is on observation. 3.Anemia I agree to monitor hemoglobin and transfuse as needed. Hb 9.7 yesterday and 8.4 today 4. Thrombocytopenia, secondary to myelodysplastic syndrome and splenomegaly due to hepatitis C. 4. Neutropenia,received Granix yesterday continue to monitor blood count, GI and oncology consult JUAN SMITH MD Jan 28, 2017 09:46
[2017-01-28] MEDS: ALPRAZolam 1 MG TABLET PO PRN ×2 (10:40→22:54)
[2017-01-28 10:55] VITALS: BP 137/67
--- NOTE | 2017-01-28 13:01 | PDOC ---
Subjective: Subjective: Feeling better. Had hematuria yesterday, none today. No stools since admission. Says he might go home tomorrow if labs stable. Objective: Vital Signs: Vital Signs Date Time Temp Pulse Resp B/P (MAP) Pulse Ox O2 Delivery O2 Flow Rate FiO2 01/28/17 10:55 98.2 91 18 137/67 (90) 100 Room Air 98.2 Labs: Laboratory Tests Test 01/27/17 15:30 01/28/17 05:30 Urine Color Yellow Urine Clarity Clear Urine pH 7.0 Urine Specific Hemphill 1.010 Urine Protein Negative mg/dL Urine Glucose (UA) Negative mg/dL Urine Ketones (Stick) Negative mg/dL Urine Blood Negative Urine Nitrite Negative Urine Bilirubin Negative Urine Urobilinogen Dipstick 0.2 mg/dL Urine Leukocyte Esterase Negative Urine RBC 0 /HPF Urine WBC Occ /HPF Urine Squamous Epithelial Cells Occ /LPF Urine Amorphous Sediment Present /HPF Urine Bacteria 0 /HPF White Blood Count 12.1 x10^3/uL Red Blood Count 2.34 x10^6/uL Hemoglobin 8.4 g/dL Hematocrit 24.9 % Mean Corpuscular Volume 107 fL Mean Corpuscular Hemoglobin 36 pg Mean Corpuscular Hemoglobin Concent 34 g/dL Red Cell Distribution Width 28.2 % Platelet Count 50 x10^3/uL Neutrophils (%) (Auto) 90 % Lymphocytes (%) (Auto) 9 % Monocytes (%) (Auto) 0 % Eosinophils (%) (Auto) 1 % Basophils (%) (Auto) 0 % Neutrophils # (Auto) 10.9 x10^3uL Lymphocytes # (Auto) 1.0 x10^3/uL Monocytes # (Auto) 0.0 x10^3/uL Eosinophils # (Auto) 0.2 x10^3/uL Basophils # (Auto) 0.1 x10^3/uL Segmented Neutrophils % 89 % Band Neutrophils % 1 % Lymphocytes % 10 % Nucleated Red Blood Cells 1 Toxic Granulation Present Toxic Vacuolation Present Dohle Bodies Present Platelet Estimate Decreased Basophilic Stippling Present Anisocytosis Mod Macrocytosis Present Sodium Level 140 mmol/L Potassium Level 3.7 mmol/L Chloride Level 103 mmol/L Carbon Dioxide Level 30 mmol/L Anion Gap 7 Blood Urea Nitrogen 17 mg/dL Creatinine 0.8 mg/dL Estimated GFR (Cockcroft-Gault) 116.3 Glucose Level 105 mg/dL Calcium Level 8.8 mg/dL PE: GEN: NAD, sitting on edge of bed w/ lunch tray LUNGS: CTAB HEART: RRR ABD: S/ND/NT NEURO/PSYCH: A & O 3 A/P: MDS -no recurrent melena, Hgb stable -last EGD and colonoscopy in 2012 -- Continue same per GI. KULWANT SEBASTIAN Jan 28, 2017 13:01
[2017-01-28] MEDS: SERTRALINE 50 MG TABLET. PO SCH (13:46)
[2017-01-28 15:00] VITALS: BP 108/64
[2017-01-28 19:00] VITALS: BP 123/65
[2017-01-28] MEDS: TBO-FILGRASTIM 480 MCG/0.8 ML SYRINGE. SQ SCH (21:00)
[2017-01-28] MEDS: traZODone 100 MG TABLET. PO SCH (22:06)
[2017-01-28] MEDS: ATORVASTATIN CALCIUM 10 MG TABLET. PO SCH (22:06)
[2017-01-28 23:00] VITALS: BP 118/60
[2017-01-29 07:00] VITALS: BP 127/67
[2017-01-29] MEDS: PANTOPRAZOLE 40 MG TABLET.DR. PO SCH (07:52)
[2017-01-29] MEDS: ALPRAZolam 1 MG TABLET PO PRN (07:52)
[2017-01-29] MEDS: HYDROcodone/APAP 10/325 1 TAB TABLET PO PRN (07:53)
[2017-01-29] MEDS: SERTRALINE 50 MG TABLET. PO SCH (08:59)
[2017-01-29 09:00] VITALS: BP 127/67
[2017-01-29] MEDS: BACLOFEN 10 MG TABLET. PO SCH (09:00)
[2017-01-29] MEDS ORDERED: FERROUS SULFATE 325 MG TABLET. PO SCH (09:00)
[2017-01-29] MEDS ORDERED: SERTRALINE 50 MG TABLET. PO SCH (09:00)
[2017-01-29] MEDS ORDERED: SERTRALINE HCL 100 MG PO SCH (09:00)
[2017-01-29] MEDS: TAMSULOSIN 0.4 MG CAP.ER.24H. PO SCH (09:00)
[2017-01-29] MEDS: amLODIPine BESYLATE 5 MG TABLET PO SCH (09:00)
--- NOTE | 2017-01-29 09:28 | PDOC ---
GENERAL General: vss and afebrile. awake and alert and denies symptoms related to blood loss. Hb 8.4 yesterday and will recheck this am with likely dc if no further drop on regular home return. abdomen benign. Problems: VITAL SIGNS Vital Signs: Vital Signs Date Time Temp Pulse Resp B/P (MAP) Pulse Ox O2 Delivery O2 Flow Rate FiO2 01/29/17 09:00 76 127/67 01/29/17 08:53 18 Room Air 01/29/17 07:00 98.0 96 98.0 I & O I & O Intake and Output 01/30/17 07:00 Intake Total 500 ml Balance 500 ml Intake Oral 500 ml ALLERGIES Allergies: Allergies Coded Allergies Type Severity Reaction Last Updated Verified No Known Drug Allergies 01/17/17 No MEDS Medications: Current Medications Medications (Trade) Dose Ordered Sig/Yulia Start Time Stop Time Status Last Admin Dose Admin Acetaminophen (Tylenol) 650 mg PRN Q4HRS PRN 01/27/17 14:30 01/28/17 14:29 DC Acetaminophen/ Hydrocodone Bitart (Lortab 10/325) 1 tab PRN Q6HRS PRN 01/27/17 20:45 01/29/17 07:53 1 TAB Alprazolam (Xanax) 1 mg PRN BID PRN 01/27/17 20:45 01/29/17 07:52 1 MG Amlodipine Besylate (Norvasc) 5 mg DAILY 01/28/17 09:00 01/29/17 09:00 5 MG Atorvastatin Calcium (Lipitor) 10 mg QHS 01/27/17 21:00 01/28/17 22:06 10 MG Baclofen (Lioresal) 10 mg TID 01/27/17 21:00 01/29/17 09:00 10 MG Ferrous Sulfate (Feosol) 325 mg DAILY 01/29/17 09:00 01/29/17 08:59 325 MG Morphine Sulfate 4 mg PRN Q2HR PRN 01/27/17 14:30 01/28/17 14:29 DC Non-Formulary Medication 100 mg DAILY 01/29/17 09:00 01/29/17 09:00 DC Ondansetron HCl (Zofran) 4 mg PRN Q8HRS PRN 01/27/17 14:30 01/28/17 14:29 DC Pantoprazole Sodium (Protonix) 40 mg DAILYAC 01/27/17 16:30 01/29/17 07:52 40 MG Sertraline HCl (Zoloft) 100 mg DAILY 01/28/17 13:45 01/29/17 08:59 100 MG Sodium Chloride 1,000 ml @ 1,000 mls/hr 1X ONCE 01/27/17 12:30 01/27/17 13:29 DC 01/27/17 13:00 1,000 MLS/HR Tamsulosin HCl (Flomax) 0.4 mg DAILY 01/28/17 09:00 01/28/17 08:32 0.4 MG Tbo-Filgrastim (Granix) 480 mcg QHS 01/27/17 21:00 01/27/17 21:24 480 MCG Trazodone HCl (Desyrel) 100 mg HS 01/27/17 21:00 01/28/17 22:06 100 MG LAB Lab: Laboratory Tests Test 01/28/17 15:00 Platelet Count 47 x10^3/uL (140-400) BASILIO BONILLA MD Jan 29, 2017 09:28
[2017-01-29 10:02] LABS: BASO # 0.1 x10^3/uL (0.0-0.2); BASO % 1 % (0-3); EOS % 3 % (0-3); HEMATOCRIT 26.1 % (39.0-53.0); HEMOGLOBIN 8.7 g/dL (13.0-17.5); LYMPH # 0.7 x10^3/uL (1.0-4.8); LYMPH % 11 % (24-48); MEAN CORPUSCULAR HEMOGLOBIN 37 pg (25-35); MEAN CORPUSCULAR HGB CONC 33 g/dL (31-37); MEAN CORPUSCULAR VOLUME 110 fL (79-100); MONO % 0 % (0-9); NEUT % 85 % (31-73); PLATELET COUNT 34 x10^3/uL (140-400); RED BLOOD COUNT 2.37 x10^6/uL (4.30-5.70); WHITE BLOOD COUNT 6.3 x10^3/uL (4.0-11.0)
[2017-01-29] MEDS ORDERED: HEPARIN PF 500 UNIT/5 ML DISP.SYRIN. IV ONE (11:00)
--- NOTE | 2017-01-29 11:42 | DS ---
DATE OF DISCHARGE: 01/29/2017 DATE OF ADMISSION: 01/27/2017 DATE OF DISCHARGE: 01/29/2017 PRIMARY DIAGNOSES: Gastrointestinal bleed, melena, anemia, thrombocytopenia, myelodysplastic syndrome. CHIEF COMPLAINT AND HISTORY OF PRESENT ILLNESS: This is a 66-year-old black male admitted with black tarry stools for 5 days prior. He is known to have myelodysplastic syndrome and when seen by his oncologist on Tuesday of the week of admission, his hemoglobin was 10.5 and platelets were 16,000. Upon presentation to the hospital, his hemoglobin had dropped down to 9.7 on admission with his platelets 15,000 when he was admitted. SUMMARY OF STAY: The patient was admitted, hemoglobin fell down to 8.4 on 01/28 and was 8.7 on 01/29 suggesting that bleeding was over. He was given a platelet transfusion during the stay with platelets going up to 50,000 on 01/28 and were 34,000 on 01/29 at the time of discharge. Oncology felt fine to discharge as long as his hemoglobins were stable and the patient was dismissed. DISPOSITION: The patient is discharged to home. DIET: Regular diet. ACTIVITY: As tolerated. FOLLOWUP: With Oncology as scheduled. DISCHARGE MEDICATIONS: Resume his regular home medical routine. BASILIO BONILLA MD DR: LINA/dawn JOB#: [id number] / [id number] JUAN Pinedo MD
== END 2017-01-29 12:37 | disposition home or self-care (01) | DRG 813 ==
LOC: ER 11:55 → 5 SOUTH 14:22
PROVIDERS: ADMIT Internal Medicine; ATTEND Internal Medicine
PROC: 30233R1 Transfusion of Nonautologous Platelets into Peripheral Vein, Percutaneous Approach (ICD-10-PCS; principal; 2017-01-27)
DX: D69.42 Congenital and hereditary thrombocytopenia purpura (principal); D61.818 Other pancytopenia; K92.2 Gastrointestinal hemorrhage, unspecified; K92.1 Melena; I10 Essential (primary) hypertension; D46.Z Other myelodysplastic syndromes; B19.20 Unspecified viral hepatitis C without hepatic coma; K21.9 Gastro-esophageal reflux disease without esophagitis; M19.90 Unspecified osteoarthritis, unspecified site; E78.00 Pure hypercholesterolemia, unspecified; E78.5 Hyperlipidemia, unspecified; Z82.49 Family history of ischemic heart disease and other diseases of the circulatory system; Z83.3 Family history of diabetes mellitus; Z82.3 Family history of stroke; Z90.89 Acquired absence of other organs; Z98.49 Cataract extraction status, unspecified eye; Z80.9 Family history of malignant neoplasm, unspecified; Z87.01 Personal history of pneumonia (recurrent)
CPT/HCPCS: 36415; 80048; 80053; 81001; 82607; 82728; 82746; 83540; 83550; 85007; 85025; 85045; 85049; 86850; 86900; 86901; 93005; 96360; J1442; J7030; P9035; 99285-25

== ENCOUNTER 2017-05-02 14:24 | Inpatient (IN) | payer MEDICARE, MEDICAID ==
[2017-05-02] VITALS (9 sets, daily range): BP systolic 107–132; BP diastolic 43–72
[~2017-05-02] VITALS: Ht 170.2 cm; Wt 74.9 kg
[~2017-05-02 14:24] MED LIST changes: +ACET325T9 PO; +DIPH-121 PO; +ESZO3TAB28 PO; +FERR-26 PO; +LIDO15SO2 MM; +MAG355OR12 PO; +SERT100T PO
--- NOTE | 2017-05-02 16:22 | PHYS DOC ---
Past Medical History Past Medical History: Arthritis, GERD, High Cholesterol, Hypertension, Other Additional Past Medical Histor: MDS Past Surgical History: Other Additional Past Surgical Histo: R CHEST PORT PLACEMENT Alcohol Use: Occasionally Drug Use: None Adult General Chief Complaint Chief Complaint: GI PROBLEM HPI HPI Patient is a 67 year old male who presents with several day history of weakness and moderate severity exertional dyspnea with a known history of myelodysplastic syndrome with frequent requirements for platelet transfusion and packed red blood cell transfusion. Apparently outpatient labs were done and he was noted to be thrombocytopenic at around 11,000 and hemoglobins in the 7 range and he was referred here for possible admission and transfusion. Denies any chest pain or shortness of breath or fever. Review of Systems Review of Systems Constitutional: Denies fever or chills [] Eyes: Denies change in visual acuity, redness, or eye pain [] HENT: Denies nasal congestion or sore throat [] Respiratory: Denies cough or shortness of breath [] Cardiovascular: No additional information not addressed in HPI [] GI: Denies abdominal pain, nausea, vomiting, bloody stools or diarrhea [] : Denies dysuria or hematuria [] Musculoskeletal: Denies back pain or joint pain [] Integument: Denies rash or skin lesions [] Neurologic: Denies headache, focal weakness or sensory changes [] Endocrine: Denies polyuria or polydipsia [] All other systems were reviewed and found to be within normal limits, except as documented in this note. Allergies Allergies Allergies Coded Allergies Type Severity Reaction Last Updated Verified No Known Drug Allergies 04/25/17 No Physical Exam Physical Exam Constitutional: Well developed, well nourished, no acute distress, non-toxic appearance. [] HENT: Normocephalic, atraumatic, bilateral external ears normal, oropharynx moist, no oral exudates, nose normal. [] Eyes: PERRLA, EOMI, conjunctiva normal, no discharge. [] Neck: Normal range of motion, no tenderness, supple, no stridor. [] Cardiovascular:Heart rate regular rhythm, no murmur [] Lungs & Thorax: Bilateral breath sounds clear to auscultation [] Abdomen: Bowel sounds normal, soft, no tenderness, no masses, no pulsatile masses. [] Skin: Warm, dry, no erythema, no rash. [] Back: No tenderness, no CVA tenderness. [] Extremities: No tenderness, no cyanosis, no clubbing, ROM intact, no edema. [] Neurologic: Alert and oriented X 3, normal motor function, normal sensory function, no focal deficits noted. [] Psychologic: Affect normal, judgement normal, mood normal. [] Current Patient Data Vital Signs Vital Signs Date Time Temp Pulse Resp B/P (MAP) Pulse Ox O2 Delivery O2 Flow Rate FiO2 05/02/17 15:35 100 20 118/62 (80) 95 Room Air 05/02/17 15:04 98.6 98.6 Lab Values Laboratory Tests Test 05/02/17 16:10 White Blood Count 5.4 x10^3/uL (4.0-11.0) Red Blood Count 1.65 x10^6/uL (4.30-5.70) L Hemoglobin 6.5 g/dL (13.0-17.5) *L Hematocrit 19.8 % (39.0-53.0) *L Mean Corpuscular Volume 120 fL (79-100) H Mean Corpuscular Hemoglobin 39 pg (25-35) H Mean Corpuscular Hemoglobin Concent 33 g/dL (31-37) Red Cell Distribution Width 20.2 % (11.5-14.5) H Platelet Count 9 x10^3/uL (140-400) *L Neutrophils (%) (Auto) 76 % (31-73) H Lymphocytes (%) (Auto) 9 % (24-48) L Monocytes (%) (Auto) 5 % (0-9) Eosinophils (%) (Auto) 8 % (0-3) H Basophils (%) (Auto) 1 % (0-3) Neutrophils # (Auto) 4.1 x10^3uL (1.8-7.7) Lymphocytes # (Auto) 0.5 x10^3/uL (1.0-4.8) L Monocytes # (Auto) 0.3 x10^3/uL (0.0-1.1) Eosinophils # (Auto) 0.5 x10^3/uL (0.0-0.7) Basophils # (Auto) 0.1 x10^3/uL (0.0-0.2) Segmented Neutrophils % 66 % (35-66) Band Neutrophils % 4 % (0-9) Lymphocytes % 13 % (24-48) L Monocytes % 3 % (0-10) Eosinophils % 4 % (0-5) Basophils % 5 % (0-3) H Promyelocytes % 1 % (0-0) H Blast Cells % (Manual) 4 % (0-0) H Nucleated Red Blood Cells 4 Dohle Bodies Present Platelet Estimate Decreased (ADEQUATE) Polychromasia Slight Poikilocytosis Slight Basophilic Stippling Present Anisocytosis Mod Macrocytosis Marked Tear Drop Cells Occ Ovalocytes Occ Schistocytes Occ Prothrombin Time 12.7 SEC (11.7-14.0) Prothrombin Time INR 1.0 (0.8-1.1) Sodium Level 137 mmol/L (136-145) Potassium Level 4.7 mmol/L (3.5-5.1) Chloride Level 102 mmol/L (98-107) Carbon Dioxide Level 29 mmol/L (21-32) Anion Gap 6 (6-14) Blood Urea Nitrogen 34 mg/dL (8-26) H Creatinine 0.8 mg/dL (0.7-1.3) Estimated GFR (Cockcroft-Gault) 116.0 BUN/Creatinine Ratio 43 (6-20) H Glucose Level 107 mg/dL (70-99) H Calcium Level 8.5 mg/dL (8.5-10.1) Total Bilirubin 0.3 mg/dL (0.2-1.0) Aspartate Amino Transferase (AST) 18 U/L (15-37) Alanine Aminotransferase (ALT) 21 U/L (16-63) Alkaline Phosphatase 85 U/L (46-116) Total Protein 6.4 g/dL (6.4-8.2) Albumin 3.2 g/dL (3.4-5.0) L Albumin/Globulin Ratio 1.0 (1.0-1.7) Laboratory Tests 05/02/17 16:10 Laboratory Tests 05/02/17 16:10 EKG EKG [] Radiology/Procedures Radiology/Procedures [] Course & Med Decision Making Course & Med Decision Making Pertinent Labs and Imaging studies reviewed. (See chart for details). Patient reports chronically dark stools due to taking iron supplements. [Patient was completely stable. He was transfused packed red blood cells and platelets. I discussed the case with Dr. Hernández and Dr. Darden.] Dragon Disclaimer Dragon Disclaimer This electronic medical record was generated, in whole or in part, using a voice recognition dictation system. Departure Departure Impression: Primary Impression: Other secondary thrombocytopenia Additional Impressions: Anemia Myelodysplastic syndrome Disposition: ADMITTED INPATIENT Admitting Physician: Marissa Hernández Condition: STABLE Referrals: IFEANYI SANTOS MD (PCP) Problem Qualifiers DARELL VIEYRA MD May 02, 2017 16:22
[2017-05-02 16:32] LABS: BASO # 0.1 x10^3/uL (0.0-0.2); BASO % 1 % (0-3); EOS % 8 % (0-3); LYMPH # 0.5 x10^3/uL (1.0-4.8); LYMPH % 9 % (24-48); MEAN CORPUSCULAR HEMOGLOBIN 39 pg (25-35); MEAN CORPUSCULAR HGB CONC 33 g/dL (31-37); MEAN CORPUSCULAR VOLUME 120 fL (79-100); MONO % 5 % (0-9); NEUT % 76 % (31-73); RED BLOOD COUNT 1.65 x10^6/uL (4.30-5.70); RED CELL DISTRIBUTION WIDTH 20.2 % (11.5-14.5); WHITE BLOOD COUNT 5.4 x10^3/uL (4.0-11.0)
[2017-05-02 16:35] LABS: HEMOGLOBIN 6.5 g/dL (13.0-17.5)
[2017-05-02 16:36] LABS: HEMATOCRIT 19.8 % (39.0-53.0); PLATELET COUNT 9 x10^3/uL (140-400)
[2017-05-02 16:39] LABS: PROTHROMBIN TIME PATIENT 12.7 SEC (11.7-14.0)
[2017-05-02 16:44] LABS: CALCIUM 8.5 mg/dL (8.5-10.1); CREATININE 0.8 mg/dL (0.7-1.3); POTASSIUM 4.7 mmol/L (3.5-5.1)
[2017-05-02] MEDS ORDERED: ACETAMINOPHEN 325 MG TABLET. PO PRN ×2 (16:45→20:30)
[2017-05-02] MEDS ORDERED: ONDANSETRON PF 4 MG/2 ML VIAL. IV PRN (16:45)
[2017-05-02] MEDS ORDERED: MORPHINE SULFATE 2 MG/ML DISP.SYRIN. IV PRN (16:45)
[2017-05-02 16:50] LABS: ALBUMIN 3.2 g/dL (3.4-5.0); TOTAL BILIRUBIN 0.3 mg/dL (0.2-1.0); TOTAL PROTEIN 6.4 g/dL (6.4-8.2)
[2017-05-02 17:04] LABS: % BASOS 5 % (0-3); % EOS 4 % (0-5); NUCLEATED RBC 4
[2017-05-02 17:07] LABS: ANISOCYTOSIS MOD; PLT ESTIMATE DECREASED (ADEQUATE); POIKILOCYTOSIS SLIGHT; POLYCHROMASIA SLIGHT
[2017-05-02 17:08] LABS: OVALOCYTES OCC; TEAR DROP CELLS OCC
[2017-05-02 17:09] LABS: SCHISTOCYTES OCC
--- NOTE | 2017-05-02 17:28 | PDOC2 ---
CONSULT Date of Consult Date of Consult DATE: 05/02/17 TIME: 17:24 Past Medical History Cardiovascular: HTN, Hyperlipidemia Pulmonary: Pneumonia GI: GERD, GI bleed, Other Heme/Onc: Other Hepatobiliary: Hep A/B/C Musculoskeletal: low back pain, Osteoarthritis Past Surgical History Past Surgical History: Cataract Removal, Tonsillectomy Family History Family History: Cancer, Diabetes, Hypertension, Stroke Social History ALCOHOL: occassional Drugs: None Lives: with Family Current Problem List Problem List Problems Medical Problems: (1) Anemia Status: Acute (2) Myelodysplastic syndrome Status: Acute (3) Other secondary thrombocytopenia Status: Acute Current Medications Current Medications Current Medications Ondansetron HCl (Zofran) 4 mg PRN Q8HRS PRN IV NAUSEA/VOMITING; Start at 16:45; Stop 05/03/17 at 16:44 Morphine Sulfate 2 mg PRN Q2HR PRN IV PAIN; Start 05/02/17 at 16:45; Stop 05/08 at 16:44 Acetaminophen (Tylenol) 650 mg PRN Q4HRS PRN PO FEVER; Start 05/02/17 at 16:45 ; Stop 05/03/17 at 16:44 Active Scripts Active Reported Lunesta (Eszopiclone) 3 Mg Tablet 2 Mg PO HS PRN Ferrous Sulfate 325 Mg Tablet 325 Mg PO Tylenol (Acetaminophen) 325 Mg Tablet 325 Mg PO PRN Benadryl Allergy (Diphenhydramine Hcl) 12.5 Mg/5 Ml Liquid 12.5 Mg PO QIDPRN PRN Mixing with Lidocaine and Maalox to make magic mouthwash. Maalox Maximum Strength Susp (Mag Hydrox/Al Hydrox/Simeth) 355 Ml Oral.susp 10 Ml PO QIDPRN PRN Mixing with Benadryl and Lidocaine to make magic mouthwash Lidocaine HCl Viscous (Lidocaine HCl) 15 Ml Solution 10 Ml MM QIDPRN PRN Mixing with Maalox and Benadryl at home to make Magic Mouthwash. (was too expensive as a compound) Zoloft (Sertraline Hcl) 100 Mg Tablet 100 Mg PO DAILY Baclofen 10 Mg Tablet 1 Tab PO TID Amlodipine Besylate 5 Mg Tablet 5 Mg PO DAILY Flomax (Tamsulosin Hcl) 0.4 Mg Cap.er.24h 1 Cap PO DAILY Omeprazole 40 Mg Capsule.dr 1 Cap PO DAILY Hydrocodone-Apap 10-325 (Hydrocodone Bit/Acetaminophen) 1 Each Tablet 10- 325 Mg PO PRN Q6HRS PRN Atorvastatin Calcium 10 Mg Tablet 10 Mg PO DAILY Alprazolam 1 Mg Tablet 1 Mg PO PRN BID PRN Allergies Allergies: Coded Allergies: No Known Drug Allergies (Unverified , 04/25/17) Vitals VITALS Vital Signs Date Time Temp Pulse Resp B/P (MAP) Pulse Ox O2 Delivery O2 Flow Rate FiO2 05/02/17 16:33 100 18 121/65 (83) 98 Room Air 05/02/17 15:04 98.6 98.6 Labs Labs Laboratory Tests Test 05/02/17 16:10 White Blood Count 5.4 x10^3/uL (4.0-11.0) Red Blood Count 1.65 x10^6/uL (4.30-5.70) Hemoglobin 6.5 g/dL (13.0-17.5) Hematocrit 19.8 % (39.0-53.0) Mean Corpuscular Volume 120 fL (79-100) Mean Corpuscular Hemoglobin 39 pg (25-35) Mean Corpuscular Hemoglobin Concent 33 g/dL (31-37) Red Cell Distribution Width 20.2 % (11.5-14.5) Platelet Count 9 x10^3/uL (140-400) Neutrophils (%) (Auto) 76 % (31-73) Lymphocytes (%) (Auto) 9 % (24-48) Monocytes (%) (Auto) 5 % (0-9) Eosinophils (%) (Auto) 8 % (0-3) Basophils (%) (Auto) 1 % (0-3) Neutrophils # (Auto) 4.1 x10^3uL (1.8-7.7) Lymphocytes # (Auto) 0.5 x10^3/uL (1.0-4.8) Monocytes # (Auto) 0.3 x10^3/uL (0.0-1.1) Eosinophils # (Auto) 0.5 x10^3/uL (0.0-0.7) Basophils # (Auto) 0.1 x10^3/uL (0.0-0.2) Segmented Neutrophils % 66 % (35-66) Band Neutrophils % 4 % (0-9) Lymphocytes % 13 % (24-48) Monocytes % 3 % (0-10) Eosinophils % 4 % (0-5) Basophils % 5 % (0-3) Promyelocytes % 1 % (0-0) Blast Cells % (Manual) 4 % (0-0) Nucleated Red Blood Cells 4 Dohle Bodies Present Platelet Estimate Decreased (ADEQUATE) Polychromasia Slight Poikilocytosis Slight Basophilic Stippling Present Anisocytosis Mod Macrocytosis Marked Tear Drop Cells Occ Ovalocytes Occ Schistocytes Occ Prothrombin Time 12.7 SEC (11.7-14.0) Prothromb Time International Ratio 1.0 (0.8-1.1) Sodium Level 137 mmol/L (136-145) Potassium Level 4.7 mmol/L (3.5-5.1) Chloride Level 102 mmol/L (98-107) Carbon Dioxide Level 29 mmol/L (21-32) Anion Gap 6 (6-14) Blood Urea Nitrogen 34 mg/dL (8-26) Creatinine 0.8 mg/dL (0.7-1.3) Estimated GFR (Cockcroft-Gault) 116.0 BUN/Creatinine Ratio 43 (6-20) Glucose Level 107 mg/dL (70-99) Calcium Level 8.5 mg/dL (8.5-10.1) Total Bilirubin 0.3 mg/dL (0.2-1.0) Aspartate Amino Transf (AST/SGOT) 18 U/L (15-37) Alanine Aminotransferase (ALT/SGPT) 21 U/L (16-63) Alkaline Phosphatase 85 U/L (46-116) Total Protein 6.4 g/dL (6.4-8.2) Albumin 3.2 g/dL (3.4-5.0) Albumin/Globulin Ratio 1.0 (1.0-1.7) Laboratory Tests Test 05/02/17 16:10 White Blood Count 5.4 x10^3/uL (4.0-11.0) Red Blood Count 1.65 x10^6/uL (4.30-5.70) Hemoglobin 6.5 g/dL (13.0-17.5) Hematocrit 19.8 % (39.0-53.0) Mean Corpuscular Volume 120 fL (79-100) Mean Corpuscular Hemoglobin 39 pg (25-35) Mean Corpuscular Hemoglobin Concent 33 g/dL (31-37) Red Cell Distribution Width 20.2 % (11.5-14.5) Platelet Count 9 x10^3/uL (140-400) Neutrophils (%) (Auto) 76 % (31-73) Lymphocytes (%) (Auto) 9 % (24-48) Monocytes (%) (Auto) 5 % (0-9) Eosinophils (%) (Auto) 8 % (0-3) Basophils (%) (Auto) 1 % (0-3) Neutrophils # (Auto) 4.1 x10^3uL (1.8-7.7) Lymphocytes # (Auto) 0.5 x10^3/uL (1.0-4.8) Monocytes # (Auto) 0.3 x10^3/uL (0.0-1.1) Eosinophils # (Auto) 0.5 x10^3/uL (0.0-0.7) Basophils # (Auto) 0.1 x10^3/uL (0.0-0.2) Segmented Neutrophils % 66 % (35-66) Band Neutrophils % 4 % (0-9) Lymphocytes % 13 % (24-48) Monocytes % 3 % (0-10) Eosinophils % 4 % (0-5) Basophils % 5 % (0-3) Promyelocytes % 1 % (0-0) Blast Cells % (Manual) 4 % (0-0) Nucleated Red Blood Cells 4 Dohle Bodies Present Platelet Estimate Decreased (ADEQUATE) Polychromasia Slight Poikilocytosis Slight Basophilic Stippling Present Anisocytosis Mod Macrocytosis Marked Tear Drop Cells Occ Ovalocytes Occ Schistocytes Occ Prothrombin Time 12.7 SEC (11.7-14.0) Prothromb Time International Ratio 1.0 (0.8-1.1) Sodium Level 137 mmol/L (136-145) Potassium Level 4.7 mmol/L (3.5-5.1) Chloride Level 102 mmol/L (98-107) Carbon Dioxide Level 29 mmol/L (21-32) Anion Gap 6 (6-14) Blood Urea Nitrogen 34 mg/dL (8-26) Creatinine 0.8 mg/dL (0.7-1.3) Estimated GFR (Cockcroft-Gault) 116.0 BUN/Creatinine Ratio 43 (6-20) Glucose Level 107 mg/dL (70-99) Calcium Level 8.5 mg/dL (8.5-10.1) Total Bilirubin 0.3 mg/dL (0.2-1.0) Aspartate Amino Transf (AST/SGOT) 18 U/L (15-37) Alanine Aminotransferase (ALT/SGPT) 21 U/L (16-63) Alkaline Phosphatase 85 U/L (46-116) Total Protein 6.4 g/dL (6.4-8.2) Albumin 3.2 g/dL (3.4-5.0) Albumin/Globulin Ratio 1.0 (1.0-1.7) Assessment/Plan Assessment/Plan DATE OF CONSULTATION: 05/02/2017 MEDICAL ONCOLOGY CONSULTATION REPORT: REQUESTING PHYSICIAN: Marissa Hernández M.D. REASON FOR CONSULTATION: MDS and WORSENING anemia HISTORY OF PRESENT ILLNESS: The patient is a 67-year-old gentleman, who has history of hepatitis C and splenomegaly. In view of persistent pancytopenia, he underwent a bone marrow aspiration and biopsy on 01/14/2015, which revealed myelodysplastic syndrome with trisomy 8 and translocation 1;16. In view of severe thrombocytopenia of 19,000 platelets, he was started on chemotherapy with Vidaza on 06/30/2015. Chemo with vidaza started 06/30/15. He was admitted to [facility] for GI bleed and discharged on 07/28/15. s/p C6 completed 12/17/15. Decreased dose of vidaza to 65 mg/m2 with C5 due to infection. s/p C9 of vidaza 04/19/16. No response, I d/c'ed vidaza. He is on observation He was admitted 09/21/2015 with fever and discharged. He was admitted on 12/31/15 with severe anemia 5.9 and fever. He was diagnosed with C-diff. He was admitted on 01/15/2016 with following complaints: On 01/12/16 noticed trouble with writing and speaking. Intermittently he has trouble getting his words out and he has had trouble writing. Improved after discontinuing Wellbutrin. He was admitted 12/05/16 with severe anemia with Hb 5.9. He was evaluated in ER for weakness, admitted to ICU. Hgb was 5.9, 7.7 after transfusions. Per ER note, Hgb was 10.3 on 11/29 and 8.5 on 12/03. Additional labs: plt 19, INR 1.2, BUN 44, Cr 1.1, glucose 200. Dr. Su has seen for similar in the past. Usually has dark stools with iron, perhaps a little more "sticky" consistency over the past 2 days. Long h/o poor appetite, no change in this, also denies weight loss. Denies hematemesis. No abdominal pain. (GI-sanchez has h/o GERD on omeprazole QD w/ last EGD in 2012; biopsies negative for H. pylori at that time. No NSAIDs or ASA, takes hydrocodone for pain. H/o Hep C treated w/ Cheryl. Last colonoscopy also in 2012 w/ adenomatous polyps. Has had C Diff in the past. He denies abdominal pain. No hematemesis. No hemoptysis. No hematuria. He was admitted on 01/27/17 with h/o black stools for 1 day duration. GI consulted: probable AV malformation suspected. No EGD planned. He was admitted on 05/02/17 with weakness and dizziness, Hb dropped from 9.6 om 04/25/17 to 6.5 on 05/02/17. No obvious bleed. Plt 9 PAST MEDICAL HISTORY: Arthritis, hepatitis C, GERD, hypercholesterolemia, hypertension, and MDS as described above. SOCIAL HISTORY: He drinks alcohol occasionally. FAMILY HISTORY: Negative for myelodysplastic syndrome. REVIEW OF SYSTEMS: A 14-point review of system was performed. Pertinent positives are mentioned in the history of present illness. Rest of the system review is negative. PHYSICAL EXAMINATION: GENERAL APPEARANCE: The patient is a 67-year-old gentleman, who is in no acute cardiorespiratory distress. VITAL SIGNS: reviewed. HEENT: Head, atraumatic and normocephalic. Eyes, no icterus. NECK: Supple. CHEST: Bilaterally symmetrical. HEART: S1 and S2 normal. ABDOMEN: Soft and nontender. CENTRAL NERVOUS SYSTEM: No focal deficits. LYMPHATICS: No lymphadenopathy. SKIN: No rashes. PSYCHOLOGIC: Mood and affect are appropriate. MUSCULOSKELETAL: No joint effusions. IMPRESSION AND PLAN: 1. Myelodysplastic syndrome. He was started on chemotherapy with Vidaza on 06/30/2015. Chemo with vidaza started 06/30/15. s/p C9 of vidaza 04/19/16. No response, I d/c'ed vidaza. He is on observation. 2.Anemia I agree to monitor hemoglobin and transfuse as needed. Hb dropped from 9.6 om 04/25/17 to 6.5 on 05/02/17. No obvious bleed, but suspect bleeding. 3. Thrombocytopenia, secondary to myelodysplastic syndrome and splenomegaly due to hepatitis C. Plt 9 on 05/02/17. Transfuse platelets. Plan to keep Plt >20 due to GI bleed. 4. Neutropenia, secondary to myelodysplastic syndrome. WBC now 5.4. OSITO HUFF MD May 02, 2017 17:28
[2017-05-02] MEDS ORDERED: ZOLPIDEM 5 MG TABLET. PO PRN (20:30)
[2017-05-02] MEDS ORDERED: LIDOCAINE 2% VISCOUS 15 ML SOLUTION. MM PRN (20:30)
[2017-05-02] MEDS ORDERED: diphenhydrAMINE ORAL ELIXIR 12.5 MG/5 ML ML PO PRN (20:30)
[2017-05-02] MEDS ORDERED: MAG HYDROX/ALUMINUM HYD/SIMETH 30 ML ORAL.SUSP PO PRN (20:30)
[2017-05-02] MEDS: ALPRAZolam 1 MG TABLET PO PRN (20:31)
[2017-05-02] MEDS: BACLOFEN 10 MG TABLET. PO SCH (20:31)
[2017-05-02] MEDS: HYDROcodone/APAP 10/325 1 TAB TABLET PO PRN (20:32)
[2017-05-02] MEDS ORDERED: ATORVASTATIN CALCIUM 10 MG TABLET. PO SCH (21:00)
[2017-05-03] VITALS (11 sets, daily range): BP systolic 109–126; BP diastolic 56–63
[2017-05-03 06:35] LABS: BASO # 0.1 x10^3/uL (0.0-0.2); BASO % 0 % (0-3); EOS % 6 % (0-3); LYMPH # 1.4 x10^3/uL (1.0-4.8); LYMPH % 8 % (24-48); MEAN CORPUSCULAR HEMOGLOBIN 37 pg (25-35); MEAN CORPUSCULAR HGB CONC 32 g/dL (31-37); MEAN CORPUSCULAR VOLUME 114 fL (79-100); MONO % 0 % (0-9); NEUT % 85 % (31-73); PLATELET COUNT 47 x10^3/uL (140-400); RED BLOOD COUNT 1.79 x10^6/uL (4.30-5.70); RED CELL DISTRIBUTION WIDTH 23.9 % (11.5-14.5); WHITE BLOOD COUNT 17.9 x10^3/uL (4.0-11.0)
[2017-05-03 06:54] LABS: ALBUMIN/GLOBULIN RATIO 0.9 (1.0-1.7); CALCIUM 8.3 mg/dL (8.5-10.1); CREATININE 0.8 mg/dL (0.7-1.3); POTASSIUM 4.3 mmol/L (3.5-5.1); TOTAL BILIRUBIN 0.4 mg/dL (0.2-1.0); TOTAL PROTEIN 6.2 g/dL (6.4-8.2)
[2017-05-03 06:59] LABS: HEMOGLOBIN 6.6 g/dL (13.0-17.5)
[2017-05-03 07:00] LABS: HEMATOCRIT 20.4 % (39.0-53.0)
[2017-05-03] MEDS: PANTOPRAZOLE 40 MG TABLET.DR. PO SCH (07:26)
[2017-05-03 07:41] LABS: % BLASTS 4 % (0-0)
--- NOTE | 2017-05-03 09:01 | PDOC ---
PROGRESS NOTES Subjective Subjective HPI - Myelodysplastic syndrome/anemia ROS - no bleeding Objective Objective Vital Signs Date Time Temp Pulse Resp B/P (MAP) Pulse Ox O2 Delivery O2 Flow Rate FiO2 05/03/17 07:31 Room Air 05/03/17 07:00 97.9 94 20 126/58 (80) 96 97.9 Intake and Output 05/03/17 07:00 Intake Total 390 ml Output Total 200 ml Balance 190 ml Intake Oral 290 ml Blood Product IV Normal Saline Flush 100 ml Output Urine Total 200 ml Physical Exam Heart: Normal S1, Normal S2 General: Alert, Oriented X3 Lungs: Clear to auscultation Neuro: Normal speech Psych/Mental Status: Mental status NL Assessment Assessment Problems Medical Problems: (1) Anemia Status: Acute (2) Myelodysplastic syndrome Status: Acute (3) Other secondary thrombocytopenia Status: Acute IMPRESSION AND PLAN: 1. Myelodysplastic syndrome. He was started on chemotherapy with Vidaza on 06/30/2015. Chemo with vidaza started 06/30/15. s/p C9 of vidaza 04/19/16. No response, I d/c'ed vidaza. He is on observation. Blasts 4%, stable. 2.Anemia I agree to monitor hemoglobin and transfuse as needed. Hb dropped from 9.6 om 04/25/17 to 6.5 on 05/02/17. No obvious bleed, but suspect bleeding. Hb only 6.6 on 05/03/17 after 1 PRBC. Consult GI. 3. Thrombocytopenia, secondary to myelodysplastic syndrome and splenomegaly due to hepatitis C. Plt 9 on 05/02/17. Transfused platelets, now 47. Plan to keep Plt >20 due to GI bleed. 4. Neutropenia, secondary to myelodysplastic syndrome. WBC now 17.9. Comment Review of Relevant I have reviewed the following items ifeanyi (where applicable) has been applied. Labs Laboratory Tests Test 05/02/17 16:10 05/03/17 06:00 White Blood Count 5.4 x10^3/uL (4.0-11.0) 17.9 x10^3/uL (4.0-11.0) Red Blood Count 1.65 x10^6/uL (4.30-5.70) 1.79 x10^6/uL (4.30-5.70) Hemoglobin 6.5 g/dL (13.0-17.5) 6.6 g/dL (13.0-17.5) Hematocrit 19.8 % (39.0-53.0) 20.4 % (39.0-53.0) Mean Corpuscular Volume 120 fL (79-100) 114 fL (79-100) Mean Corpuscular Hemoglobin 39 pg (25-35) 37 pg (25-35) Mean Corpuscular Hemoglobin Concent 33 g/dL (31-37) 32 g/dL (31-37) Red Cell Distribution Width 20.2 % (11.5-14.5) 23.9 % (11.5-14.5) Platelet Count 9 x10^3/uL (140-400) 47 x10^3/uL (140-400) Neutrophils (%) (Auto) 76 % (31-73) 85 % (31-73) Lymphocytes (%) (Auto) 9 % (24-48) 8 % (24-48) Monocytes (%) (Auto) 5 % (0-9) 0 % (0-9) Eosinophils (%) (Auto) 8 % (0-3) 6 % (0-3) Basophils (%) (Auto) 1 % (0-3) 0 % (0-3) Neutrophils # (Auto) 4.1 x10^3uL (1.8-7.7) 15.3 x10^3uL (1.8-7.7) Lymphocytes # (Auto) 0.5 x10^3/uL (1.0-4.8) 1.4 x10^3/uL (1.0-4.8) Monocytes # (Auto) 0.3 x10^3/uL (0.0-1.1) 0.1 x10^3/uL (0.0-1.1) Eosinophils # (Auto) 0.5 x10^3/uL (0.0-0.7) 1.0 x10^3/uL (0.0-0.7) Basophils # (Auto) 0.1 x10^3/uL (0.0-0.2) 0.1 x10^3/uL (0.0-0.2) Segmented Neutrophils % 66 % (35-66) Band Neutrophils % 4 % (0-9) Lymphocytes % 13 % (24-48) Monocytes % 3 % (0-10) Eosinophils % 4 % (0-5) Basophils % 5 % (0-3) Promyelocytes % 1 % (0-0) Blast Cells % (Manual) 4 % (0-0) Nucleated Red Blood Cells 4 Dohle Bodies Present Platelet Estimate Decreased (ADEQUATE) Polychromasia Slight Poikilocytosis Slight Basophilic Stippling Present Anisocytosis Mod Macrocytosis Marked Tear Drop Cells Occ Ovalocytes Occ Schistocytes Occ Prothrombin Time 12.7 SEC (11.7-14.0) Prothromb Time International Ratio 1.0 (0.8-1.1) Sodium Level 137 mmol/L (136-145) 138 mmol/L (136-145) Potassium Level 4.7 mmol/L (3.5-5.1) 4.3 mmol/L (3.5-5.1) Chloride Level 102 mmol/L (98-107) 103 mmol/L (98-107) Carbon Dioxide Level 29 mmol/L (21-32) 28 mmol/L (21-32) Anion Gap 6 (6-14) 7 (6-14) Blood Urea Nitrogen 34 mg/dL (8-26) 28 mg/dL (8-26) Creatinine 0.8 mg/dL (0.7-1.3) 0.8 mg/dL (0.7-1.3) Estimated GFR (Cockcroft-Gault) 116.0 116.0 BUN/Creatinine Ratio 43 (6-20) 35 (6-20) Glucose Level 107 mg/dL (70-99) 102 mg/dL (70-99) Calcium Level 8.5 mg/dL (8.5-10.1) 8.3 mg/dL (8.5-10.1) Total Bilirubin 0.3 mg/dL (0.2-1.0) 0.4 mg/dL (0.2-1.0) Aspartate Amino Transf (AST/SGOT) 18 U/L (15-37) 21 U/L (15-37) Alanine Aminotransferase (ALT/SGPT) 21 U/L (16-63) 12 U/L (16-63) Alkaline Phosphatase 85 U/L (46-116) 80 U/L (46-116) Total Protein 6.4 g/dL (6.4-8.2) 6.2 g/dL (6.4-8.2) Albumin 3.2 g/dL (3.4-5.0) 3.0 g/dL (3.4-5.0) Albumin/Globulin Ratio 1.0 (1.0-1.7) 0.9 (1.0-1.7) Laboratory Tests Test 05/02/17 16:10 05/03/17 06:00 White Blood Count 5.4 x10^3/uL (4.0-11.0) 17.9 x10^3/uL (4.0-11.0) Red Blood Count 1.65 x10^6/uL (4.30-5.70) 1.79 x10^6/uL (4.30-5.70) Hemoglobin 6.5 g/dL (13.0-17.5) 6.6 g/dL (13.0-17.5) Hematocrit 19.8 % (39.0-53.0) 20.4 % (39.0-53.0) Mean Corpuscular Volume 120 fL (79-100) 114 fL (79-100) Mean Corpuscular Hemoglobin 39 pg (25-35) 37 pg (25-35) Mean Corpuscular Hemoglobin Concent 33 g/dL (31-37) 32 g/dL (31-37) Red Cell Distribution Width 20.2 % (11.5-14.5) 23.9 % (11.5-14.5) Platelet Count 9 x10^3/uL (140-400) 47 x10^3/uL (140-400) Neutrophils (%) (Auto) 76 % (31-73) 85 % (31-73) Lymphocytes (%) (Auto) 9 % (24-48) 8 % (24-48) Monocytes (%) (Auto) 5 % (0-9) 0 % (0-9) Eosinophils (%) (Auto) 8 % (0-3) 6 % (0-3) Basophils (%) (Auto) 1 % (0-3) 0 % (0-3) Neutrophils # (Auto) 4.1 x10^3uL (1.8-7.7) 15.3 x10^3uL (1.8-7.7) Lymphocytes # (Auto) 0.5 x10^3/uL (1.0-4.8) 1.4 x10^3/uL (1.0-4.8) Monocytes # (Auto) 0.3 x10^3/uL (0.0-1.1) 0.1 x10^3/uL (0.0-1.1) Eosinophils # (Auto) 0.5 x10^3/uL (0.0-0.7) 1.0 x10^3/uL (0.0-0.7) Basophils # (Auto) 0.1 x10^3/uL (0.0-0.2) 0.1 x10^3/uL (0.0-0.2) Segmented Neutrophils % 66 % (35-66) Band Neutrophils % 4 % (0-9) Lymphocytes % 13 % (24-48) Monocytes % 3 % (0-10) Eosinophils % 4 % (0-5) Basophils % 5 % (0-3) Promyelocytes % 1 % (0-0) Blast Cells % (Manual) 4 % (0-0) Nucleated Red Blood Cells 4 Dohle Bodies Present Platelet Estimate Decreased (ADEQUATE) Polychromasia Slight Poikilocytosis Slight Basophilic Stippling Present Anisocytosis Mod Macrocytosis Marked Tear Drop Cells Occ Ovalocytes Occ Schistocytes Occ Prothrombin Time 12.7 SEC (11.7-14.0) Prothromb Time International Ratio 1.0 (0.8-1.1) Sodium Level 137 mmol/L (136-145) 138 mmol/L (136-145) Potassium Level 4.7 mmol/L (3.5-5.1) 4.3 mmol/L (3.5-5.1) Chloride Level 102 mmol/L (98-107) 103 mmol/L (98-107) Carbon Dioxide Level 29 mmol/L (21-32) 28 mmol/L (21-32) Anion Gap 6 (6-14) 7 (6-14) Blood Urea Nitrogen 34 mg/dL (8-26) 28 mg/dL (8-26) Creatinine 0.8 mg/dL (0.7-1.3) 0.8 mg/dL (0.7-1.3) Estimated GFR (Cockcroft-Gault) 116.0 116.0 BUN/Creatinine Ratio 43 (6-20) 35 (6-20) Glucose Level 107 mg/dL (70-99) 102 mg/dL (70-99) Calcium Level 8.5 mg/dL (8.5-10.1) 8.3 mg/dL (8.5-10.1) Total Bilirubin 0.3 mg/dL (0.2-1.0) 0.4 mg/dL (0.2-1.0) Aspartate Amino Transf (AST/SGOT) 18 U/L (15-37) 21 U/L (15-37) Alanine Aminotransferase (ALT/SGPT) 21 U/L (16-63) 12 U/L (16-63) Alkaline Phosphatase 85 U/L (46-116) 80 U/L (46-116) Total Protein 6.4 g/dL (6.4-8.2) 6.2 g/dL (6.4-8.2) Albumin 3.2 g/dL (3.4-5.0) 3.0 g/dL (3.4-5.0) Albumin/Globulin Ratio 1.0 (1.0-1.7) 0.9 (1.0-1.7) Medications Current Medications Ondansetron HCl (Zofran) 4 mg PRN Q8HRS PRN IV NAUSEA/VOMITING; Start at 16:45; Stop 05/03/17 at 16:44 Morphine Sulfate 2 mg PRN Q2HR PRN IV PAIN; Start 05/02/17 at 16:45; Stop 05/08 at 16:44 Acetaminophen (Tylenol) 650 mg PRN Q4HRS PRN PO FEVER; Start 05/02/17 at 16:45 ; Stop 05/02/17 at 20:29; Status DC Acetaminophen (Tylenol) 325 mg PRN Q4HRS PRN PO BACK PAIN; Start 05/02/17 at 20:30 Alprazolam (Xanax) 1 mg PRN BID PRN PO ANXIETY Last administered on 05/02/17t 20:31; Start 05/02/17 at 20:30 Amlodipine Besylate (Norvasc) 5 mg DAILY PO ; Start 05/03/17 at 09:00 Atorvastatin Calcium (Lipitor) 10 mg QHS PO ; Start 05/02/17 at 21:00 Baclofen (Lioresal) 10 mg TID PO Last administered on 05/02/17 20:31; Start 05/02/17 at 21:00 Ferrous Sulfate (Feosol) 325 mg DAILY PO ; Start 05/03/17 at 09:00 Acetaminophen/ Hydrocodone Bitart (Lortab 10/325) 1 tab PRN Q6HRS PRN PO PAIN Last administered on 05/02/17 20:32; Start 05/02/17 at 20:30 Lidocaine HCl (Viscous Lidocaine) 10 ml QIDPRN PRN MM MOUTH PAIN; Start at 20:30 Al Hydroxide/Mg Hydroxide (Mylanta Plus Xs) 10 ml QIDPRN PRN PO MOUTH PAIN; Start 05/02/17 at 20:30 Tamsulosin HCl (Flomax) 0.4 mg DAILY PO ; Start 05/03/17 at 09:00 Diphenhydramine HCl (Benadryl Oral Elixir) 12.5 mg PRN QID PRN PO ALLERGIES; Start 05/02/17 at 20:30 Zolpidem Tartrate (Ambien) 5 mg PRN QHS PRN PO INSOMNIA, MAY REPEAT IN 1HR; Start 05/02/17 at 20:30 Pantoprazole Sodium (Protonix) 40 mg DAILYAC PO Last administered on 07:26; Start 05/03/17 at 07:30 Sertraline HCl (Zoloft) 100 mg DAILY PO ; Start 05/03/17 at 09:00 Active Scripts Active Reported Lunesta (Eszopiclone) 3 Mg Tablet 2 Mg PO HS PRN Ferrous Sulfate 325 Mg Tablet 65 Mg PO DAILY Tylenol (Acetaminophen) 325 Mg Tablet 325 Mg PO PRN Benadryl Allergy (Diphenhydramine Hcl) 12.5 Mg/5 Ml Liquid 12.5 Mg PO QIDPRN PRN Mixing with Lidocaine and Maalox to make magic mouthwash. Maalox Maximum Strength Susp (Mag Hydrox/Al Hydrox/Simeth) 355 Ml Oral.susp 10 Ml PO QIDPRN PRN Mixing with Benadryl and Lidocaine to make magic mouthwash Lidocaine HCl Viscous (Lidocaine HCl) 15 Ml Solution 10 Ml MM QIDPRN PRN Mixing with Maalox and Benadryl at home to make Magic Mouthwash. (was too expensive as a compound) Zoloft (Sertraline Hcl) 100 Mg Tablet 100 Mg PO DAILY Baclofen 10 Mg Tablet 1 Tab PO TID Amlodipine Besylate 5 Mg Tablet 5 Mg PO DAILY Flomax (Tamsulosin Hcl) 0.4 Mg Cap.er.24h 1 Cap PO DAILY Omeprazole 40 Mg Capsule.dr 1 Cap PO DAILY Hydrocodone-Apap 10-325 (Hydrocodone Bit/Acetaminophen) 1 Each Tablet 10- 325 Mg PO PRN Q6HRS PRN Atorvastatin Calcium 10 Mg Tablet 10 Mg PO DAILY Alprazolam 1 Mg Tablet 1 Mg PO PRN BID PRN Vitals/I & O Vital Sign - Last 24 Hours 05/02/17 05/02/17 05/02/17 05/02/17 15:04 15:35 16:33 18:40 Temp 98.6 97.7 98.6 97.7 Pulse 103 100 100 76 Resp 20 20 18 19 B/P (MAP) 132/70 (90) 118/62 (80) 121/65 (83) 132/72 (92) Pulse Ox 100 95 98 96 O2 Delivery Room Air Room Air Room Air Room Air 05/02/17 05/02/17 05/02/17 05/02/17 19:05 19:54 20:10 20:32 Temp 98.4 99.7 98.4 99.7 Pulse 106 102 Resp 18 18 18 B/P (MAP) 122/64 124/62 Pulse Ox 96 O2 Delivery Room Air Room Air 05/02/17 05/02/17 05/02/17 05/02/17 21:10 21:30 22:10 23:00 Temp 99.3 99.6 98.8 99.3 99.6 98.8 Pulse 105 99 94 Resp 16 16 16 19 B/P (MAP) 127/43 121/59 107/60 (76) Pulse Ox 96 100 O2 Delivery Room Air Room Air 05/02/17 05/02/17 05/02/17 05/03/17 23:10 23:28 23:37 00:18 Temp 98.8 98.9 99.0 99.1 98.8 98.9 99.0 99.1 Pulse 94 93 94 95 Resp 16 16 16 16 B/P (MAP) 107/60 110/62 113/54 110/63 05/03/17 05/03/17 05/03/17 03:00 07:00 07:31 Temp 99.9 97.9 99.9 97.9 Pulse 92 94 Resp 19 20 B/P (MAP) 112/58 (76) 126/58 (80) Pulse Ox 96 96 O2 Delivery Room Air Room Air Room Air Intake and Output 05/02/17 05/02/17 05/03/17 15:00 23:00 07:00 Intake Total 390 ml Output Total 200 ml Balance 190 ml OSITO HUFF MD May 03, 2017 09:01
[2017-05-03] MEDS: SERTRALINE 50 MG TABLET. PO SCH (09:10)
[2017-05-03] MEDS: ALPRAZolam 1 MG TABLET PO PRN ×2 (09:10→20:30)
[2017-05-03] MEDS: TAMSULOSIN 0.4 MG CAP.ER.24H. PO SCH (09:10)
[2017-05-03] MEDS: HYDROcodone/APAP 10/325 1 TAB TABLET PO PRN ×2 (09:10→20:31)
[2017-05-03] MEDS: FERROUS SULFATE 325 MG TABLET. PO SCH (09:10)
[2017-05-03] MEDS: BACLOFEN 10 MG TABLET. PO SCH ×3 (09:10→20:30)
[2017-05-03] MEDS: amLODIPine BESYLATE 5 MG TABLET PO SCH (09:10)
--- NOTE | 2017-05-03 09:26 | PDOC1 ---
History and Physical Date of Admission Date of Admission 05/02/17 Identification/Chief Complaint Chief Complaint fatigue Problems: Source Source: Chart review, Patient History of Present Illness History of Present Illness presented to ER with increase weakness and fatigue, seen earler and had lab drawn his Hb was too low at 6.4 has been having black stool but takes iron supplement not sure if worse than usual ,no hematochazia , no N/V,some COFFEY, no fever or chills Past Medical History Cardiovascular: HTN, Hyperlipidemia Pulmonary: Pneumonia GI: GERD, GI bleed, Other Heme/Onc: Other Hepatobiliary: Hep A/B/C Past Surgical History Past Surgical History: Cataract Removal, Tonsillectomy Family History Family History: Cancer, Diabetes, Hypertension, Stroke Social History Smoke: 1 pack per day ALCOHOL: none Drugs: None Current Problem List Problem List Problems Medical Problems: (1) Anemia Status: Acute (2) Myelodysplastic syndrome Status: Acute (3) Other secondary thrombocytopenia Status: Acute Current Medications Current Medications Current Medications Medications (Trade) Dose Ordered Sig/Yulia Start Time Stop Time Status Last Admin Dose Admin Acetaminophen (Tylenol) 325 mg PRN Q4HRS PRN 05/02/17 20:30 Acetaminophen/ Hydrocodone Bitart (Lortab 10/325) 1 tab PRN Q6HRS PRN 05/02/17 20:30 05/03/17 09:10 1 TAB Al Hydroxide/Mg Hydroxide (Mylanta Plus Xs) 10 ml QIDPRN PRN 05/02/17 20:30 Alprazolam (Xanax) 1 mg PRN BID PRN 05/02/17 20:30 05/03/17 09:10 1 MG Amlodipine Besylate (Norvasc) 5 mg DAILY 05/03/17 09:00 05/03/17 09:10 5 MG Atorvastatin Calcium (Lipitor) 10 mg QHS 05/02/17 21:00 Baclofen (Lioresal) 10 mg TID 05/02/17 21:00 05/03/17 09:10 10 MG Diphenhydramine HCl (Benadryl Oral Elixir) 12.5 mg PRN QID PRN 05/02/17 20:30 Ferrous Sulfate (Feosol) 325 mg DAILY 05/03/17 09:00 05/03/17 09:10 325 MG Lidocaine HCl (Viscous Lidocaine) 10 ml QIDPRN PRN 05/02/17 20:30 Morphine Sulfate 2 mg PRN Q2HR PRN 05/02/17 16:45 05/03/17 16:44 Ondansetron HCl (Zofran) 4 mg PRN Q8HRS PRN 05/02/17 16:45 05/03/17 16:44 Pantoprazole Sodium (Protonix) 40 mg DAILYAC 05/03/17 07:30 05/03/17 07:26 40 MG Sertraline HCl (Zoloft) 100 mg DAILY 05/03/17 09:00 05/03/17 09:10 100 MG Tamsulosin HCl (Flomax) 0.4 mg DAILY 05/03/17 09:00 05/03/17 09:10 0.4 MG Zolpidem Tartrate (Ambien) 5 mg PRN QHS PRN 05/02/17 20:30 Allergies Allergies Allergies Coded Allergies Type Severity Reaction Last Updated Verified No Known Drug Allergies 04/25/17 No ROS Review of System CONSTITUTIONAL: No fever or chills EYES: No recent changes SKIN: No rash or itching CARDIOVASCULAR: No chest pain, syncope, palpitations, or edema RESPIRATORY: No SOB or cough GASTROINTESTINAL: No nausea, vomiting or abdominal pain NEUROLOGICAL: + headaches + weakness ENDOCRINE: No cold or heat intolerance GENITOURINARY: No urgency or frequency of urination MUSCULOSKELETAL: No back pain or joint pain LYMPHATICS: No enlarged lymph nodes PSYCHIATRIC: +depression Physical Exam Physical Exam GEN.: No apparent distress. Alert and oriented. HEENT: Head is normocephalic, atraumatic NECK: Supple. LUNGS: Clear to auscultation. HEART: RRR, S1, S2 present. Peripheral pulses intact ABDOMEN: Soft, nontender. Positive bowel sounds. EXTREMITIES: Without any cyanosis. NEUROLOGIC: Normal speech, normal tone PSYCHIATRIC: Normal affect, normal mood. SKIN: No ulcerations Vitals Vitals Vital Signs Date Time Temp Pulse Resp B/P (MAP) Pulse Ox O2 Delivery O2 Flow Rate FiO2 05/03/17 09:10 Room Air 05/03/17 09:10 94 126/58 05/03/17 07:00 97.9 20 96 97.9 Labs Labs Laboratory Tests Test 05/02/17 16:10 05/03/17 06:00 White Blood Count 5.4 x10^3/uL (4.0-11.0) 17.9 x10^3/uL (4.0-11.0) Red Blood Count 1.65 x10^6/uL (4.30-5.70) 1.79 x10^6/uL (4.30-5.70) Hemoglobin 6.5 g/dL (13.0-17.5) 6.6 g/dL (13.0-17.5) Hematocrit 19.8 % (39.0-53.0) 20.4 % (39.0-53.0) Mean Corpuscular Volume 120 fL (79-100) 114 fL (79-100) Mean Corpuscular Hemoglobin 39 pg (25-35) 37 pg (25-35) Mean Corpuscular Hemoglobin Concent 33 g/dL (31-37) 32 g/dL (31-37) Red Cell Distribution Width 20.2 % (11.5-14.5) 23.9 % (11.5-14.5) Platelet Count 9 x10^3/uL (140-400) 47 x10^3/uL (140-400) Neutrophils (%) (Auto) 76 % (31-73) 85 % (31-73) Lymphocytes (%) (Auto) 9 % (24-48) 8 % (24-48) Monocytes (%) (Auto) 5 % (0-9) 0 % (0-9) Eosinophils (%) (Auto) 8 % (0-3) 6 % (0-3) Basophils (%) (Auto) 1 % (0-3) 0 % (0-3) Neutrophils # (Auto) 4.1 x10^3uL (1.8-7.7) 15.3 x10^3uL (1.8-7.7) Lymphocytes # (Auto) 0.5 x10^3/uL (1.0-4.8) 1.4 x10^3/uL (1.0-4.8) Monocytes # (Auto) 0.3 x10^3/uL (0.0-1.1) 0.1 x10^3/uL (0.0-1.1) Eosinophils # (Auto) 0.5 x10^3/uL (0.0-0.7) 1.0 x10^3/uL (0.0-0.7) Basophils # (Auto) 0.1 x10^3/uL (0.0-0.2) 0.1 x10^3/uL (0.0-0.2) Segmented Neutrophils % 66 % (35-66) Band Neutrophils % 4 % (0-9) Lymphocytes % 13 % (24-48) Monocytes % 3 % (0-10) Eosinophils % 4 % (0-5) Basophils % 5 % (0-3) Promyelocytes % 1 % (0-0) Blast Cells % (Manual) 4 % (0-0) Nucleated Red Blood Cells 4 Dohle Bodies Present Platelet Estimate Decreased (ADEQUATE) Polychromasia Slight Poikilocytosis Slight Basophilic Stippling Present Anisocytosis Mod Macrocytosis Marked Tear Drop Cells Occ Ovalocytes Occ Schistocytes Occ Prothrombin Time 12.7 SEC (11.7-14.0) Prothromb Time International Ratio 1.0 (0.8-1.1) Sodium Level 137 mmol/L (136-145) 138 mmol/L (136-145) Potassium Level 4.7 mmol/L (3.5-5.1) 4.3 mmol/L (3.5-5.1) Chloride Level 102 mmol/L (98-107) 103 mmol/L (98-107) Carbon Dioxide Level 29 mmol/L (21-32) 28 mmol/L (21-32) Anion Gap 6 (6-14) 7 (6-14) Blood Urea Nitrogen 34 mg/dL (8-26) 28 mg/dL (8-26) Creatinine 0.8 mg/dL (0.7-1.3) 0.8 mg/dL (0.7-1.3) Estimated GFR (Cockcroft-Gault) 116.0 116.0 BUN/Creatinine Ratio 43 (6-20) 35 (6-20) Glucose Level 107 mg/dL (70-99) 102 mg/dL (70-99) Calcium Level 8.5 mg/dL (8.5-10.1) 8.3 mg/dL (8.5-10.1) Total Bilirubin 0.3 mg/dL (0.2-1.0) 0.4 mg/dL (0.2-1.0) Aspartate Amino Transf (AST/SGOT) 18 U/L (15-37) 21 U/L (15-37) Alanine Aminotransferase (ALT/SGPT) 21 U/L (16-63) 12 U/L (16-63) Alkaline Phosphatase 85 U/L (46-116) 80 U/L (46-116) Total Protein 6.4 g/dL (6.4-8.2) 6.2 g/dL (6.4-8.2) Albumin 3.2 g/dL (3.4-5.0) 3.0 g/dL (3.4-5.0) Albumin/Globulin Ratio 1.0 (1.0-1.7) 0.9 (1.0-1.7) Laboratory Tests Test 05/02/17 16:10 05/03/17 06:00 White Blood Count 5.4 x10^3/uL (4.0-11.0) 17.9 x10^3/uL (4.0-11.0) Red Blood Count 1.65 x10^6/uL (4.30-5.70) 1.79 x10^6/uL (4.30-5.70) Hemoglobin 6.5 g/dL (13.0-17.5) 6.6 g/dL (13.0-17.5) Hematocrit 19.8 % (39.0-53.0) 20.4 % (39.0-53.0) Mean Corpuscular Volume 120 fL (79-100) 114 fL (79-100) Mean Corpuscular Hemoglobin 39 pg (25-35) 37 pg (25-35) Mean Corpuscular Hemoglobin Concent 33 g/dL (31-37) 32 g/dL (31-37) Red Cell Distribution Width 20.2 % (11.5-14.5) 23.9 % (11.5-14.5) Platelet Count 9 x10^3/uL (140-400) 47 x10^3/uL (140-400) Neutrophils (%) (Auto) 76 % (31-73) 85 % (31-73) Lymphocytes (%) (Auto) 9 % (24-48) 8 % (24-48) Monocytes (%) (Auto) 5 % (0-9) 0 % (0-9) Eosinophils (%) (Auto) 8 % (0-3) 6 % (0-3) Basophils (%) (Auto) 1 % (0-3) 0 % (0-3) Neutrophils # (Auto) 4.1 x10^3uL (1.8-7.7) 15.3 x10^3uL (1.8-7.7) Lymphocytes # (Auto) 0.5 x10^3/uL (1.0-4.8) 1.4 x10^3/uL (1.0-4.8) Monocytes # (Auto) 0.3 x10^3/uL (0.0-1.1) 0.1 x10^3/uL (0.0-1.1) Eosinophils # (Auto) 0.5 x10^3/uL (0.0-0.7) 1.0 x10^3/uL (0.0-0.7) Basophils # (Auto) 0.1 x10^3/uL (0.0-0.2) 0.1 x10^3/uL (0.0-0.2) Segmented Neutrophils % 66 % (35-66) Band Neutrophils % 4 % (0-9) Lymphocytes % 13 % (24-48) Monocytes % 3 % (0-10) Eosinophils % 4 % (0-5) Basophils % 5 % (0-3) Promyelocytes % 1 % (0-0) Blast Cells % (Manual) 4 % (0-0) Nucleated Red Blood Cells 4 Dohle Bodies Present Platelet Estimate Decreased (ADEQUATE) Polychromasia Slight Poikilocytosis Slight Basophilic Stippling Present Anisocytosis Mod Macrocytosis Marked Tear Drop Cells Occ Ovalocytes Occ Schistocytes Occ Prothrombin Time 12.7 SEC (11.7-14.0) Prothromb Time International Ratio 1.0 (0.8-1.1) Sodium Level 137 mmol/L (136-145) 138 mmol/L (136-145) Potassium Level 4.7 mmol/L (3.5-5.1) 4.3 mmol/L (3.5-5.1) Chloride Level 102 mmol/L (98-107) 103 mmol/L (98-107) Carbon Dioxide Level 29 mmol/L (21-32) 28 mmol/L (21-32) Anion Gap 6 (6-14) 7 (6-14) Blood Urea Nitrogen 34 mg/dL (8-26) 28 mg/dL (8-26) Creatinine 0.8 mg/dL (0.7-1.3) 0.8 mg/dL (0.7-1.3) Estimated GFR (Cockcroft-Gault) 116.0 116.0 BUN/Creatinine Ratio 43 (6-20) 35 (6-20) Glucose Level 107 mg/dL (70-99) 102 mg/dL (70-99) Calcium Level 8.5 mg/dL (8.5-10.1) 8.3 mg/dL (8.5-10.1) Total Bilirubin 0.3 mg/dL (0.2-1.0) 0.4 mg/dL (0.2-1.0) Aspartate Amino Transf (AST/SGOT) 18 U/L (15-37) 21 U/L (15-37) Alanine Aminotransferase (ALT/SGPT) 21 U/L (16-63) 12 U/L (16-63) Alkaline Phosphatase 85 U/L (46-116) 80 U/L (46-116) Total Protein 6.4 g/dL (6.4-8.2) 6.2 g/dL (6.4-8.2) Albumin 3.2 g/dL (3.4-5.0) 3.0 g/dL (3.4-5.0) Albumin/Globulin Ratio 1.0 (1.0-1.7) 0.9 (1.0-1.7) VTE Prophylaxis Ordered VTE Prophylaxis Devices: Contraindicated VTE Pharmacological Prophylaxi: Contraindicated Assessment/Plan Assessment/Plan 1- myelodysplastic syndrome 2- anemia severe and symptomatic transfusion 3-thrombocytopenia severe 4-HTN 5-Osteoarthritis 6- prostate hypertrophy 7-Depression JUAN SMITH MD May 03, 2017 09:26
--- NOTE | 2017-05-03 09:33 | PDOC2 ---
GI CONSULT Reason For Consult: Severe anemia, ?GI bleed HPI: HPI: 66 y/o male w/ MDS/pancytopenia who has previously been evaluated by Dr. Su. Follows w/ Dr. Darden, tried chemo in the past, receives Neupogen inj 3x weekly, and takes iron. Yesterday in Dr. Dadren's office, drop in Hgb was noted from 9.6 on 04/25/17 to 6.5 on 05/02. Stools are always dark w/ iron; in the past, has noted sticky/tarry consistency of stools w/ drop in Hgb, also had hematuria at one point. This time, denies obvious bleeding. Still takes omeprazole QD for h/o GERD. EGD in 2012 unrevealing w/ biopsies negative for H. pylori. Last colonoscopy in 2012 w/ adenomatous polyps. H/o Hep C treated w / Harvoni, splenomegaly, and C Diff. Doesn't eat much (unchanged), no weight loss. No NSAIDs. GI-sanchez, small bowel AVMs have been suggested as source of bleeding, suggestion to consider double-balloon endoscopy (not available here). The patient is ambivalent about repeating EGD and colonoscopy, not sure if it would make much difference. Labs: Hgb 6.5 (6.6 s/p transfusion - another ordered), plt 9 (47 s/p transfusion ), BUN 34 (now 28) w/ Cr 0.8, INR 1. PMH: PMH: MDS/pancytopenia (previously chemo), HTN, HLD, GERD, Hep C (treated w/ Harvoni) , splenomegaly, C Diff, OA, tonsillectomy, eye surgery, bone marrow bx FH: Family History: Cancer Social History: Smoke: No ALCOHOL: occassional Drugs: None ROS: GEN: Denies fevers, chills, sweats HEENT: Denies blurred vision, sore throat CV: Denies chest pain RESP: Denies shortness of air, cough GI: Per HPI : Denies hematuria, dysuria ENDO: Denies weight changes NEURO: Denies confusion, dizziness MSK: Denies weakness, joint pain/swelling SKIN: Denies jaundice, pruritus Vitals: Vitals: Vital Signs Date Time Temp Pulse Resp B/P (MAP) Pulse Ox O2 Delivery O2 Flow Rate FiO2 05/03/17 09:10 Room Air 12/12/17 09:10 94 126/58 05/03/17 07:00 97.9 20 96 97.9 Labs: Labs: Laboratory Tests Test 05/02/17 16:10 05/03/17 06:00 White Blood Count 5.4 x10^3/uL (4.0-11.0) 17.9 x10^3/uL (4.0-11.0) Red Blood Count 1.65 x10^6/uL (4.30-5.70) 1.79 x10^6/uL (4.30-5.70) Hemoglobin 6.5 g/dL (13.0-17.5) 6.6 g/dL (13.0-17.5) Hematocrit 19.8 % (39.0-53.0) 20.4 % (39.0-53.0) Mean Corpuscular Volume 120 fL (79-100) 114 fL (79-100) Mean Corpuscular Hemoglobin 39 pg (25-35) 37 pg (25-35) Mean Corpuscular Hemoglobin Concent 33 g/dL (31-37) 32 g/dL (31-37) Red Cell Distribution Width 20.2 % (11.5-14.5) 23.9 % (11.5-14.5) Platelet Count 9 x10^3/uL (140-400) 47 x10^3/uL (140-400) Neutrophils (%) (Auto) 76 % (31-73) 85 % (31-73) Lymphocytes (%) (Auto) 9 % (24-48) 8 % (24-48) Monocytes (%) (Auto) 5 % (0-9) 0 % (0-9) Eosinophils (%) (Auto) 8 % (0-3) 6 % (0-3) Basophils (%) (Auto) 1 % (0-3) 0 % (0-3) Neutrophils # (Auto) 4.1 x10^3uL (1.8-7.7) 15.3 x10^3uL (1.8-7.7) Lymphocytes # (Auto) 0.5 x10^3/uL (1.0-4.8) 1.4 x10^3/uL (1.0-4.8) Monocytes # (Auto) 0.3 x10^3/uL (0.0-1.1) 0.1 x10^3/uL (0.0-1.1) Eosinophils # (Auto) 0.5 x10^3/uL (0.0-0.7) 1.0 x10^3/uL (0.0-0.7) Basophils # (Auto) 0.1 x10^3/uL (0.0-0.2) 0.1 x10^3/uL (0.0-0.2) Segmented Neutrophils % 66 % (35-66) Band Neutrophils % 4 % (0-9) Lymphocytes % 13 % (24-48) Monocytes % 3 % (0-10) Eosinophils % 4 % (0-5) Basophils % 5 % (0-3) Promyelocytes % 1 % (0-0) Blast Cells % (Manual) 4 % (0-0) Nucleated Red Blood Cells 4 Dohle Bodies Present Platelet Estimate Decreased (ADEQUATE) Polychromasia Slight Poikilocytosis Slight Basophilic Stippling Present Anisocytosis Mod Macrocytosis Marked Tear Drop Cells Occ Ovalocytes Occ Schistocytes Occ Prothrombin Time 12.7 SEC (11.7-14.0) Prothromb Time International Ratio 1.0 (0.8-1.1) Sodium Level 137 mmol/L (136-145) 138 mmol/L (136-145) Potassium Level 4.7 mmol/L (3.5-5.1) 4.3 mmol/L (3.5-5.1) Chloride Level 102 mmol/L (98-107) 103 mmol/L (98-107) Carbon Dioxide Level 29 mmol/L (21-32) 28 mmol/L (21-32) Anion Gap 6 (6-14) 7 (6-14) Blood Urea Nitrogen 34 mg/dL (8-26) 28 mg/dL (8-26) Creatinine 0.8 mg/dL (0.7-1.3) 0.8 mg/dL (0.7-1.3) Estimated GFR (Cockcroft-Gault) 116.0 116.0 BUN/Creatinine Ratio 43 (6-20) 35 (6-20) Glucose Level 107 mg/dL (70-99) 102 mg/dL (70-99) Calcium Level 8.5 mg/dL (8.5-10.1) 8.3 mg/dL (8.5-10.1) Total Bilirubin 0.3 mg/dL (0.2-1.0) 0.4 mg/dL (0.2-1.0) Aspartate Amino Transf (AST/SGOT) 18 U/L (15-37) 21 U/L (15-37) Alanine Aminotransferase (ALT/SGPT) 21 U/L (16-63) 12 U/L (16-63) Alkaline Phosphatase 85 U/L (46-116) 80 U/L (46-116) Total Protein 6.4 g/dL (6.4-8.2) 6.2 g/dL (6.4-8.2) Albumin 3.2 g/dL (3.4-5.0) 3.0 g/dL (3.4-5.0) Albumin/Globulin Ratio 1.0 (1.0-1.7) 0.9 (1.0-1.7) Allergies: Coded Allergies: No Known Drug Allergies (Unverified , 04/25/17) Medications: Current Medications Medications (Trade) Dose Ordered Sig/Yulia Route PRN Reason Start Time Stop Time Status Last Admin Dose Admin Alprazolam (Xanax) 1 mg PRN BID PRN PO ANXIETY 05/02/17 20:30 05/03/17 09:10 Amlodipine Besylate (Norvasc) 5 mg DAILY PO 05/03/17 09:00 05/03/17 09:10 Baclofen (Lioresal) 10 mg TID PO 05/02/17 21:00 05/03/17 09:10 Ferrous Sulfate (Feosol) 325 mg DAILY PO 05/03/17 09:00 05/03/17 09:10 Acetaminophen/ Hydrocodone Bitart (Lortab 10/325) 1 tab PRN Q6HRS PRN PO PAIN 05/02/17 20:30 05/03/17 09:10 Tamsulosin HCl (Flomax) 0.4 mg DAILY PO 05/03/17 09:00 05/03/17 09:10 Pantoprazole Sodium (Protonix) 40 mg DAILYAC PO 05/03/17 07:30 05/03/17 07:26 Sertraline HCl (Zoloft) 100 mg DAILY PO 05/03/17 09:00 05/03/17 09:10 PE: GEN: NAD HEENT: Atraumatic, PERRL LUNGS: CTAB HEART: RRR ABD: NABS, S/ND/NT EXTREMITY: No edema SKIN: No rashes, no jaundice NEURO/PSYCH: A & O 3 A/P: A/P: MDS/pancytopenia -3g drop in Hgb in 1 week w/o obvious bleeding -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 Su. KULWANT SEBASTIAN May 03, 2017 09:33
[2017-05-03] MEDS: ATORVASTATIN CALCIUM 10 MG TABLET. PO SCH (13:33)
--- NOTE | 2017-05-03 14:10 | RAD ---
Indication: Anemia. Technique: Mesenteric duplex ultrasound was performed. Findings: Hepatic veins are intact with normal phasicity. Hepatopedal flow is noted in the main portal vein and right and left portal veins. Portal vein diameter is 1.4 cm. Portal vein velocity is up to 27 cm/s, within normal limits. Splenic vein is patent. Impression: Hepatopedal flow noted in the portal vein.
[2017-05-04] VITALS (10 sets, daily range): BP systolic 96–124; BP diastolic 57–69
[2017-05-04 05:52] LABS: HEMATOCRIT 21.1 % (39.0-53.0); HEMOGLOBIN 7.1 g/dL (13.0-17.5); RED BLOOD COUNT 1.96 x10^6/uL (4.30-5.70); RED CELL DISTRIBUTION WIDTH 28.5 % (11.5-14.5); WHITE BLOOD COUNT 10.4 x10^3/uL (4.0-11.0)
[2017-05-04 06:04] LABS: CALCIUM 8.3 mg/dL (8.5-10.1); CREATININE 0.8 mg/dL (0.7-1.3); POTASSIUM 3.9 mmol/L (3.5-5.1)
[2017-05-04] MEDS: PANTOPRAZOLE 40 MG TABLET.DR. PO SCH (06:09)
[2017-05-04] MEDS: ATORVASTATIN CALCIUM 10 MG TABLET. PO SCH (09:10)
[2017-05-04] MEDS: SERTRALINE 50 MG TABLET. PO SCH (09:10)
[2017-05-04] MEDS: TAMSULOSIN 0.4 MG CAP.ER.24H. PO SCH (09:10)
[2017-05-04] MEDS: FERROUS SULFATE 325 MG TABLET. PO SCH (09:11)
[2017-05-04] MEDS: BACLOFEN 10 MG TABLET. PO SCH ×3 (09:11→20:29)
[2017-05-04] MEDS: amLODIPine BESYLATE 5 MG TABLET PO SCH (09:11)
[2017-05-04] MEDS: ALPRAZolam 1 MG TABLET PO PRN ×2 (09:13→20:29)
[2017-05-04] MEDS: HYDROcodone/APAP 10/325 1 TAB TABLET PO PRN ×2 (09:13→20:30)
--- NOTE | 2017-05-04 09:22 | PDOC ---
PROGRESS NOTES Subjective Subjective HPI - f/u of anemia/Myelodysplastic syndrome ROS - no obvious GI bleed Objective Objective Vital Signs Date Time Temp Pulse Resp B/P (MAP) Pulse Ox O2 Delivery O2 Flow Rate FiO2 05/04/17 09:13 97 Room Air 05/04/17 09:11 88 111/60 05/04/17 03:06 97.9 20 97.9 Intake and Output 05/04/17 07:00 Intake Total 1190 ml Output Total 800 ml Balance 390 ml Intake Oral 840 ml Blood Product IV Normal Saline Flush 350 ml Output Urine Total 800 ml Physical Exam Heart: Normal S1, Normal S2 General: Alert, Oriented X3 Lungs: Clear to auscultation Neuro: Normal speech Psych/Mental Status: Mental status NL Assessment Assessment Problems Medical Problems: (1) Anemia Status: Acute (2) Myelodysplastic syndrome Status: Acute (3) Other secondary thrombocytopenia Status: Acute IMPRESSION AND PLAN: 1. Myelodysplastic syndrome. He was started on chemotherapy with Vidaza on 06/30/2015. Chemo with vidaza started 06/30/15. s/p C9 of vidaza 04/19/16. No response, I d/c'ed vidaza. He is on observation. Blasts 4%, stable. 2.Anemia I agree to monitor hemoglobin and transfuse as needed. Hb dropped from 9.6 om 04/25/17 to 6.5 on 05/02/17. No obvious bleed, but suspect bleeding. Hb only 6.6 on 05/03/17 after 1 PRBC. Consulted GI. Hb only 7.7 on 05/04/17 after 2 units total. Concern for active bleed. I will order Ct and bleeding scan. 3. Thrombocytopenia, secondary to myelodysplastic syndrome and splenomegaly due to hepatitis C. Plt 9 on 05/02/17. Transfused platelets, now 37. Plan to keep Plt >20 due to GI bleed. 4. Neutropenia, secondary to myelodysplastic syndrome. WBC now 10.4. Comment Review of Relevant I have reviewed the following items ifeanyi (where applicable) has been applied. Labs Laboratory Tests Test 05/02/17 16:10 05/03/17 06:00 05/04/17 05:05 White Blood Count 5.4 x10^3/uL (4.0-11.0) 17.9 x10^3/uL (4.0-11.0) 10.4 x10^3/uL (4.0-11.0) Red Blood Count 1.65 x10^6/uL (4.30-5.70) 1.79 x10^6/uL (4.30-5.70) 1.96 x10^6/uL (4.30-5.70) Hemoglobin 6.5 g/dL (13.0-17.5) 6.6 g/dL (13.0-17.5) 7.1 g/dL (13.0-17.5) Hematocrit 19.8 % (39.0-53.0) 20.4 % (39.0-53.0) 21.1 % (39.0-53.0) Mean Corpuscular Volume 120 fL (79-100) 114 fL (79-100) 107 fL (79-100) Mean Corpuscular Hemoglobin 39 pg (25-35) 37 pg (25-35) 36 pg (25-35) Mean Corpuscular Hemoglobin Concent 33 g/dL (31-37) 32 g/dL (31-37) 34 g/dL (31-37) Red Cell Distribution Width 20.2 % (11.5-14.5) 23.9 % (11.5-14.5) 28.5 % (11.5-14.5) Platelet Count 9 x10^3/uL (140-400) 47 x10^3/uL (140-400) 37 x10^3/uL (140-400) Neutrophils (%) (Auto) 76 % (31-73) 85 % (31-73) Lymphocytes (%) (Auto) 9 % (24-48) 8 % (24-48) Monocytes (%) (Auto) 5 % (0-9) 0 % (0-9) Eosinophils (%) (Auto) 8 % (0-3) 6 % (0-3) Basophils (%) (Auto) 1 % (0-3) 0 % (0-3) Neutrophils # (Auto) 4.1 x10^3uL (1.8-7.7) 15.3 x10^3uL (1.8-7.7) Lymphocytes # (Auto) 0.5 x10^3/uL (1.0-4.8) 1.4 x10^3/uL (1.0-4.8) Monocytes # (Auto) 0.3 x10^3/uL (0.0-1.1) 0.1 x10^3/uL (0.0-1.1) Eosinophils # (Auto) 0.5 x10^3/uL (0.0-0.7) 1.0 x10^3/uL (0.0-0.7) Basophils # (Auto) 0.1 x10^3/uL (0.0-0.2) 0.1 x10^3/uL (0.0-0.2) Segmented Neutrophils % 66 % (35-66) Band Neutrophils % 4 % (0-9) Lymphocytes % 13 % (24-48) Monocytes % 3 % (0-10) Eosinophils % 4 % (0-5) Basophils % 5 % (0-3) Promyelocytes % 1 % (0-0) Blast Cells % (Manual) 4 % (0-0) Nucleated Red Blood Cells 4 Dohle Bodies Present Platelet Estimate Decreased (ADEQUATE) Polychromasia Slight Poikilocytosis Slight Basophilic Stippling Present Anisocytosis Mod Macrocytosis Marked Tear Drop Cells Occ Ovalocytes Occ Schistocytes Occ Prothrombin Time 12.7 SEC (11.7-14.0) Prothromb Time International Ratio 1.0 (0.8-1.1) Sodium Level 137 mmol/L (136-145) 138 mmol/L (136-145) 136 mmol/L (136-145) Potassium Level 4.7 mmol/L (3.5-5.1) 4.3 mmol/L (3.5-5.1) 3.9 mmol/L (3.5-5.1) Chloride Level 102 mmol/L (98-107) 103 mmol/L (98-107) 102 mmol/L (98-107) Carbon Dioxide Level 29 mmol/L (21-32) 28 mmol/L (21-32) 28 mmol/L (21-32) Anion Gap 6 (6-14) 7 (6-14) 6 (6-14) Blood Urea Nitrogen 34 mg/dL (8-26) 28 mg/dL (8-26) 25 mg/dL (8-26) Creatinine 0.8 mg/dL (0.7-1.3) 0.8 mg/dL (0.7-1.3) 0.8 mg/dL (0.7-1.3) Estimated GFR (Cockcroft-Gault) 116.0 116.0 116.0 BUN/Creatinine Ratio 43 (6-20) 35 (6-20) Glucose Level 107 mg/dL (70-99) 102 mg/dL (70-99) 102 mg/dL (70-99) Calcium Level 8.5 mg/dL (8.5-10.1) 8.3 mg/dL (8.5-10.1) 8.3 mg/dL (8.5-10.1) Total Bilirubin 0.3 mg/dL (0.2-1.0) 0.4 mg/dL (0.2-1.0) Aspartate Amino Transf (AST/SGOT) 18 U/L (15-37) 21 U/L (15-37) Alanine Aminotransferase (ALT/SGPT) 21 U/L (16-63) 12 U/L (16-63) Alkaline Phosphatase 85 U/L (46-116) 80 U/L (46-116) Total Protein 6.4 g/dL (6.4-8.2) 6.2 g/dL (6.4-8.2) Albumin 3.2 g/dL (3.4-5.0) 3.0 g/dL (3.4-5.0) Albumin/Globulin Ratio 1.0 (1.0-1.7) 0.9 (1.0-1.7) Laboratory Tests Test 05/04/17 05:05 White Blood Count 10.4 x10^3/uL (4.0-11.0) Red Blood Count 1.96 x10^6/uL (4.30-5.70) Hemoglobin 7.1 g/dL (13.0-17.5) Hematocrit 21.1 % (39.0-53.0) Mean Corpuscular Volume 107 fL (79-100) Mean Corpuscular Hemoglobin 36 pg (25-35) Mean Corpuscular Hemoglobin Concent 34 g/dL (31-37) Red Cell Distribution Width 28.5 % (11.5-14.5) Platelet Count 37 x10^3/uL (140-400) Sodium Level 136 mmol/L (136-145) Potassium Level 3.9 mmol/L (3.5-5.1) Chloride Level 102 mmol/L (98-107) Carbon Dioxide Level 28 mmol/L (21-32) Anion Gap 6 (6-14) Blood Urea Nitrogen 25 mg/dL (8-26) Creatinine 0.8 mg/dL (0.7-1.3) Estimated GFR (Cockcroft-Gault) 116.0 Glucose Level 102 mg/dL (70-99) Calcium Level 8.3 mg/dL (8.5-10.1) Medications Current Medications Ondansetron HCl (Zofran) 4 mg PRN Q8HRS PRN IV NAUSEA/VOMITING; Start at 16:45; Stop 05/03/17 at 16:44; Status DC Morphine Sulfate 2 mg PRN Q2HR PRN IV PAIN; Start 05/02/17 at 16:45; Stop 05/08 at 16:44; Status DC Acetaminophen (Tylenol) 650 mg PRN Q4HRS PRN PO FEVER; Start 05/02/17 at 16:45 ; Stop 05/02/17 at 20:29; Status DC Acetaminophen (Tylenol) 325 mg PRN Q4HRS PRN PO BACK PAIN; Start 05/02/17 at 20:30 Alprazolam (Xanax) 1 mg PRN BID PRN PO ANXIETY Last administered on 05/04/17 09:13; Start 05/02/17 at 20:30 Amlodipine Besylate (Norvasc) 5 mg DAILY PO Last administered on 05/04/17 09: 11; Start 05/03/17 at 09:00 Atorvastatin Calcium (Lipitor) 10 mg QHS PO ; Start 05/02/17 at 21:00; Stop at 11:11; Status DC Baclofen (Lioresal) 10 mg TID PO Last administered on 05/04/17 09:11; Start 05/02/17 at 21:00 Ferrous Sulfate (Feosol) 325 mg DAILY PO Last administered on 05/04/17 09:11 ; Start 05/03/17 at 09:00 Acetaminophen/ Hydrocodone Bitart (Lortab 10/325) 1 tab PRN Q6HRS PRN PO SEVERE PAIN Last administered on 05/04/17 09:13; Start 05/02/17 at 20:30 Lidocaine HCl (Viscous Lidocaine) 10 ml QIDPRN PRN MM MOUTH PAIN; Start at 20:30 Al Hydroxide/Mg Hydroxide (Mylanta Plus Xs) 10 ml QIDPRN PRN PO MOUTH PAIN; Start 05/02/17 at 20:30 Tamsulosin HCl (Flomax) 0.4 mg DAILY PO Last administered on 05/04/17 09:10; Start 05/03/17 at 09:00 Diphenhydramine HCl (Benadryl Oral Elixir) 12.5 mg PRN QID PRN PO ALLERGIES; Start 05/02/17 at 20:30 Zolpidem Tartrate (Ambien) 5 mg PRN QHS PRN PO INSOMNIA, MAY REPEAT IN 1HR; Start 05/02/17 at 20:30 Pantoprazole Sodium (Protonix) 40 mg DAILYAC PO Last administered on 06:09; Start 05/03/17 at 07:30 Sertraline HCl (Zoloft) 100 mg DAILY PO Last administered on 05/04/17 09:10; Start 05/03/17 at 09:00 Atorvastatin Calcium (Lipitor) 10 mg DAILY PO Last administered on 05/04/17 09:10; Start 05/03/17 at 11:30 Active Scripts Active Reported Lunesta (Eszopiclone) 3 Mg Tablet 2 Mg PO HS PRN Ferrous Sulfate 325 Mg Tablet 65 Mg PO DAILY Tylenol (Acetaminophen) 325 Mg Tablet 325 Mg PO PRN Benadryl Allergy (Diphenhydramine Hcl) 12.5 Mg/5 Ml Liquid 12.5 Mg PO QIDPRN PRN Mixing with Lidocaine and Maalox to make magic mouthwash. Maalox Maximum Strength Susp (Mag Hydrox/Al Hydrox/Simeth) 355 Ml Oral.susp 10 Ml PO QIDPRN PRN Mixing with Benadryl and Lidocaine to make magic mouthwash Lidocaine HCl Viscous (Lidocaine HCl) 15 Ml Solution 10 Ml MM QIDPRN PRN Mixing with Maalox and Benadryl at home to make Magic Mouthwash. (was too expensive as a compound) Zoloft (Sertraline Hcl) 100 Mg Tablet 100 Mg PO DAILY Baclofen 10 Mg Tablet 1 Tab PO TID Amlodipine Besylate 5 Mg Tablet 5 Mg PO DAILY Flomax (Tamsulosin Hcl) 0.4 Mg Cap.er.24h 1 Cap PO DAILY Omeprazole 40 Mg Capsule.dr 1 Cap PO DAILY Hydrocodone-Apap 10-325 (Hydrocodone Bit/Acetaminophen) 1 Each Tablet 10- 325 Mg PO PRN Q6HRS PRN Atorvastatin Calcium 10 Mg Tablet 10 Mg PO DAILY Alprazolam 1 Mg Tablet 1 Mg PO PRN BID PRN Vitals/I & O Vital Sign - Last 24 Hours 05/03/17 05/03/17 05/03/17 05/03/17 09:58 10:14 11:00 12:03 Temp 98.2 97.9 98.1 98.9 98.2 97.9 98.1 98.9 Pulse 95 90 96 63 Resp 18 18 19 20 B/P (MAP) 109/62 117/61 125/62 (83) 126/63 Pulse Ox 99 O2 Delivery Room Air 05/03/17 05/03/17 05/03/17 05/03/17 13:30 14:56 19:00 20:00 Temp 97.9 97.7 98.2 97.9 97.7 98.2 Pulse 91 85 95 Resp 18 19 20 B/P (MAP) 120/60 121/59 (79) 126/56 (79) Pulse Ox 97 96 O2 Delivery Room Air Room Air Room Air 05/03/17 05/03/17 05/03/17 05/04/17 20:31 21:31 23:00 03:06 Temp 98.1 97.9 98.1 97.9 Pulse 93 88 Resp 20 20 20 20 B/P (MAP) 122/59 (80) 111/60 (77) Pulse Ox 96 97 95 97 O2 Delivery Room Air Room Air Room Air Room Air 05/04/17 05/04/17 09:11 09:13 Pulse 88 B/P (MAP) 111/60 Pulse Ox 97 O2 Delivery Room Air Intake and Output 05/03/17 05/03/17 05/04/17 15:00 23:00 07:00 Intake Total 710 ml 240 ml 240 ml Output Total 500 ml 300 ml Balance 210 ml -60 ml 240 ml OSITO HUFF MD May 04, 2017 09:22
--- NOTE | 2017-05-04 09:36 | PDOC ---
SUBJECTIVE Subjective feels ok, had BM yesterday no blood or clots , not tarry OBJECTIVE Vital Signs Vital Signs Date Time Temp Pulse Resp B/P (MAP) Pulse Ox O2 Delivery O2 Flow Rate FiO2 05/04/17 09:13 97 Room Air 05/04/17 09:11 88 111/60 05/04/17 08:00 Room Air 05/04/17 03:06 97.9 88 20 111/60 (77) 97 Room Air 97.9 05/03/17 23:00 98.1 93 20 122/59 (80) 95 Room Air 98.1 05/03/17 21:31 20 97 Room Air 05/03/17 20:31 20 96 Room Air 05/03/17 20:00 Room Air 05/03/17 19:00 98.2 95 20 126/56 (79) 96 Room Air 98.2 05/03/17 14:56 97.7 85 19 121/59 (79) 97 Room Air 97.7 05/03/17 13:30 97.9 91 18 120/60 97.9 05/03/17 12:03 98.9 63 20 126/63 98.9 05/03/17 11:00 98.1 96 19 125/62 (83) 99 Room Air 98.1 05/03/17 10:14 97.9 90 18 117/61 97.9 05/03/17 09:58 98.2 95 18 109/62 98.2 I & O Intake and Output 05/04/17 07:00 Intake Total 1190 ml Output Total 800 ml Balance 390 ml Intake Oral 840 ml Blood Product IV Normal Saline Flush 350 ml Output Urine Total 800 ml PHYSICAL EXAM Physical Exam no change, no obvious bleeding ASSESSMENT/PLAN Assessment/Plan 1- anemia w Hb 7.1 transfuse another unit today, agree w CT and/pelvis and bleeding scan discussed w Dr. Darden 2-MDS 3-thrombocytopenia Problems: COMMENT Lab Laboratory Tests Test 05/04/17 05:05 White Blood Count 10.4 x10^3/uL (4.0-11.0) Red Blood Count 1.96 x10^6/uL (4.30-5.70) Hemoglobin 7.1 g/dL (13.0-17.5) Hematocrit 21.1 % (39.0-53.0) Mean Corpuscular Volume 107 fL (79-100) Mean Corpuscular Hemoglobin 36 pg (25-35) Mean Corpuscular Hemoglobin Concent 34 g/dL (31-37) Red Cell Distribution Width 28.5 % (11.5-14.5) Platelet Count 37 x10^3/uL (140-400) Sodium Level 136 mmol/L (136-145) Potassium Level 3.9 mmol/L (3.5-5.1) Chloride Level 102 mmol/L (98-107) Carbon Dioxide Level 28 mmol/L (21-32) Anion Gap 6 (6-14) Blood Urea Nitrogen 25 mg/dL (8-26) Creatinine 0.8 mg/dL (0.7-1.3) Estimated GFR (Cockcroft-Gault) 116.0 Glucose Level 102 mg/dL (70-99) Calcium Level 8.3 mg/dL (8.5-10.1) JUAN SMITH MD May 04, 2017 09:36
--- NOTE | 2017-05-04 10:18 | PDOC ---
Subjective: Subjective: No bleeding, tolerating PO. Objective: Objective: Plans for bleeding scan, CT A/P, transfusion. Vital Signs: Vital Signs Date Time Temp Pulse Resp B/P (MAP) Pulse Ox O2 Delivery O2 Flow Rate FiO2 05/04/17 09:13 97 Room Air 05/04/17 09:11 88 111/60 05/04/17 07:00 97.9 16 97.9 Labs: Laboratory Tests Test 05/04/17 05:05 White Blood Count 10.4 x10^3/uL Red Blood Count 1.96 x10^6/uL Hemoglobin 7.1 g/dL Hematocrit 21.1 % Mean Corpuscular Volume 107 fL Mean Corpuscular Hemoglobin 36 pg Mean Corpuscular Hemoglobin Concent 34 g/dL Red Cell Distribution Width 28.5 % Platelet Count 37 x10^3/uL Sodium Level 136 mmol/L Potassium Level 3.9 mmol/L Chloride Level 102 mmol/L Carbon Dioxide Level 28 mmol/L Anion Gap 6 Blood Urea Nitrogen 25 mg/dL Creatinine 0.8 mg/dL Estimated GFR (Cockcroft-Gault) 116.0 Glucose Level 102 mg/dL Calcium Level 8.3 mg/dL Imaging: Abd Doppler Impression: Hepatopedal flow noted in the portal vein. 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 KULWANT SEBASTIAN May 04, 2017 10:18
[2017-05-04 13:02] LABS: HEMATOCRIT 23.9 % (39.0-53.0)
[2017-05-04] MEDS ORDERED: CONTRAST GIVEN MC PRN (13:30)
[2017-05-04] MEDS ORDERED: IOHEXOL 240 MG/ML 50ML VIAL. PO ONE (13:30)
[2017-05-04] MEDS ORDERED: IOHEXOL 300 MG/ML 100ML VIAL. IV ONE (13:30)
--- NOTE | 2017-05-04 15:03 | RAD ---
CT of the abdomen and pelvis with contrast 05/04/2017 Indication: Anemia. Comparison study: CT of the abdomen and pelvis with contrast September 26, 2015. Technique: Multidetector CT imaging of the abdomen and pelvis was performed following the administration of IV and enteric contrast. Findings: Visualized lung bases are unremarkable. The liver is diffusely low in attenuation suggesting some degree of hepatic steatosis. The liver is otherwise unremarkable. The gallbladder is within normal limits. Spleen is normal in appearance. The left adrenal gland is normal in appearance. The superior right adrenal gland nodule is stable in size with respect comparison exam. The bilateral kidneys are grossly unremarkable. Small low-density lesion is seen in the superior anterior right kidney similar to prior study which likely represents a small cyst, but is too small to adequately characterize by CT. The pancreas is atrophic in appearance but otherwise unremarkable. There is no evidence of bowel obstruction. No acute inflammatory changes involving the visualized bowel are identified. Enteric contrast did not reach the large bowel diffuse atherosclerotic vascular disease is noted. No free fluid or free air is seen in the abdomen and pelvis. The bladder is grossly unremarkable. Note the exam is significantly limited for evaluation of gastrointestinal hemorrhage. Enteric contrast was administered prior to the exam which can obscure bleeding. Precontrast, arterial phase, and delayed imaging was not performed. Only portal venous imaging is available. Degenerative changes of the lumbar spine are noted. Levoscoliosis of the lumbar spine is noted. No acute osseous changes are seen. Impression: 1. No evidence of acute intra-abdominal abnormality is identified. 2. Probable hepatic steatosis. 3. Stable right adrenal gland nodule
--- NOTE | 2017-05-04 15:06 | RAD ---
Radionuclide GI bleeding scan, 05/04/2017: History: Anemia The study was performed utilizing 32 mCi of technetium 99m and a labeled red blood cell technique. Imaging out to one our showed no abnormal accumulation of activity in the GI tract. Normal bladder activity is evident. IMPRESSION: Negative radionuclide GI bleeding scan
[2017-05-05] VITALS (8 sets, daily range): BP systolic 107–145; BP diastolic 60–77
[2017-05-05] MEDS: PANTOPRAZOLE 40 MG TABLET.DR. PO SCH (05:50)
[2017-05-05] MEDS: ALPRAZolam 1 MG TABLET PO PRN ×2 (06:03→09:05)
[2017-05-05] MEDS: HYDROcodone/APAP 10/325 1 TAB TABLET PO PRN (06:03)
--- NOTE | 2017-05-05 08:51 | PDOC ---
SUBJECTIVE Subjective stable OBJECTIVE Vital Signs Vital Signs Date Time Temp Pulse Resp B/P (MAP) Pulse Ox O2 Delivery O2 Flow Rate FiO2 05/05/17 07:30 97.7 83 19 114/67 (83) 98 Room Air 97.7 05/05/17 07:14 98 Room Air 05/05/17 06:03 20 98 Room Air 05/05/17 03:06 97.9 84 18 127/77 (94) 98 Room Air 97.9 05/04/17 23:15 98.2 77 18 96/57 (70) 100 Room Air 98.2 05/04/17 21:30 18 05/04/17 20:30 20 99 Room Air 05/04/17 20:00 Room Air 05/04/17 19:00 98.8 86 18 116/66 (83) 96 Room Air 98.8 05/04/17 15:00 97.7 81 18 124/67 (86) 99 Room Air 97.7 05/04/17 12:52 97.9 84 18 123/66 97.9 05/04/17 11:38 97.7 79 18 115/69 97.7 05/04/17 11:00 97.9 81 18 114/64 (81) 96 Room Air 97.9 05/04/17 10:34 97.7 81 16 117/60 97.7 05/04/17 10:21 97.9 84 18 114/64 97.9 05/04/17 09:13 97 Room Air 05/04/17 09:11 88 111/60 I & O Intake and Output 05/05/17 07:00 Intake Total 990 ml Balance 990 ml Intake Oral 590 ml Blood Product IV Normal Saline Flush 400 ml # Voids 1 PHYSICAL EXAM Physical Exam no change ASSESSMENT/PLAN Assessment/Plan his CT and bleeding scan negative, Hb yest 8.[address] Darden if Hb > 8.0 home today if less transfuse then home . F/U out pt Problems: COMMENT Lab Laboratory Tests Test 05/04/17 12:45 Hemoglobin 8.0 g/dL (13.0-17.5) Hematocrit 23.9 % (39.0-53.0) Mean Corpuscular Hemoglobin Concent 33 g/dL (31-37) JUAN SMITH MD May 05, 2017 08:51
--- NOTE | 2017-05-05 08:51 | PDOC3 ---
*Discharge Summary* Date of Admission: May 02, 2017 Date of Discharge: May 05, 2017 Admitting Diagnosis Problems Medical Problems: (1) Anemia Status: Acute (2) Myelodysplastic syndrome Status: Acute (3) Other secondary thrombocytopenia Status: Acute Problems: Final Diagnosis 1. Myelodysplastic syndrome. He was started on chemotherapy with Vidaza on 06/30/2015. for 9 cycles without response on observation now 2.Anemia multifactorial aplastic marrow and possible micro GI bleed , transfuse as needed. Hb dropped from 9.6 om 04/25/17 to 6.5 on 05/02/17. No obvious bleed, but suspect bleeding. Hb only 6.6 on 05/03/17 after 1 PRBC. Consulted GI. Hb only 7.1 on 05/04/17 after 2 units total. Concern for active bleed. Ct and bleeding scan 05/04/17 is negative. Hb 7.7 on 05/05/17 - transfuse 1 unit and d/c home. No obvious bleed. 3. Thrombocytopenia, secondary to myelodysplastic syndrome and splenomegaly due to hepatitis C. Plt 9 on 05/02/17. Transfused platelets, now 27. Plan to keep Plt >20 due to GI bleed. 4. Neutropenia, secondary to myelodysplastic syndrome. WBC now 5.4. 5-HTN 6-Osteoarthritis 7- prostate hypertrophy 8-Depression Problems Medical Problems: (1) Anemia Status: Acute (2) Myelodysplastic syndrome Status: Acute (3) Other secondary thrombocytopenia Status: Acute CONSULTS GI/Hematology Procedures CT abd and pelvis, bleeding scan both negative Brief Hospital Course Mr. Braun is a 67 old [sex] who presented with [ ] Disposition/Orders: D/C to Home CONDITION AT DISCHARGE: Improved Diet: Cardiac Home Meds Reported Medications Eszopiclone (LUNESTA) 3 Mg Tablet, 2 MG PO HS Y for INSOMNIA, TAB 04/25/17 Ferrous Sulfate (FERROUS SULFATE) 325 Mg Tablet, 65 MG PO DAILY, TAB 01/27/17 Acetaminophen (TYLENOL) 325 Mg Tablet, 325 MG PO Y for BACK PAIN, TAB 01/27/17 Diphenhydramine Hcl (BENADRYL ALLERGY) 12.5 Mg/5 Ml Liquid, 12.5 MG PO QIDPRN Y for MOUTH PAIN, LIQUID Mixing with Lidocaine and Maalox to make magic mouthwash. 01/27/17 Mag Hydrox/Al Hydrox/Simeth (MAALOX MAXIMUM STRENGTH SUSP) 355 Ml Oral.susp, 10 ML PO QIDPRN Y for MOUTH PAIN, MISC Mixing with Benadryl and Lidocaine to make magic mouthwash 01/27/17 Lidocaine HCl (Lidocaine HCl Viscous) 15 Ml Solution, 10 ML MM QIDPRN Y for MOUTH PAIN, MISC Mixing with Maalox and Benadryl at home to make Magic Mouthwash. (was too expensive as a compound) 01/27/17 Sertraline Hcl (ZOLOFT) 100 Mg Tablet, 100 MG PO DAILY for ANTI-DEPRESSANT, TAB 0 Refills 01/27/17 Baclofen (BACLOFEN) 10 Mg Tablet, 1 TAB PO TID, TAB 12/31/15 Amlodipine Besylate (AMLODIPINE BESYLATE) 5 Mg Tablet, 5 MG PO DAILY, TAB 12/31/15 Tamsulosin Hcl (FLOMAX) 0.4 Mg Cap.er.24h, 1 CAP PO DAILY, CAP 12/31/15 Omeprazole (OMEPRAZOLE) 40 Mg Capsule.dr, 1 CAP PO DAILY, CAP 12/31/15 Hydrocodone Bit/Acetaminophen (HYDROCODONE-APAP 10-325 ) 1 Each Tablet, 10- 325 MG PO PRN Q6HRS Y for PAIN, TAB 07/23/15 Atorvastatin Calcium (ATORVASTATIN CALCIUM) 10 Mg Tablet, 10 MG PO DAILY, TAB 07/23/15 Alprazolam (ALPRAZOLAM) 1 Mg Tablet, 1 MG PO PRN BID Y for ANXIETY, TAB 07/23/15 Scheduled Amlodipine Besylate (Amlodipine Besylate), 5 MG PO DAILY, (Reported) Atorvastatin Calcium (Atorvastatin Calcium), 10 MG PO DAILY, (Reported) Baclofen (Baclofen), 1 TAB PO TID, (Reported) Ferrous Sulfate (Ferrous Sulfate), 65 MG PO DAILY, (Reported) Omeprazole (Omeprazole), 1 CAP PO DAILY, (Reported) Sertraline Hcl (Zoloft), 100 MG PO DAILY, (Reported) Tamsulosin Hcl (Flomax), 1 CAP PO DAILY, (Reported) Scheduled PRN Acetaminophen (Tylenol), 325 MG PO for BACK PAIN, (Reported) Alprazolam (Alprazolam), 1 MG PO PRN BID PRN for ANXIETY, (Reported) Diphenhydramine Hcl (Benadryl Allergy), 12.5 MG PO QIDPRN PRN for MOUTH PAIN, ( Reported) Eszopiclone (Lunesta), 2 MG PO HS PRN for INSOMNIA, (Reported) Hydrocodone Bit/Acetaminophen (Hydrocodone-Apap 10-325 ), 10-325 MG PO PRN Q6HRS PRN for PAIN, (Reported) Lidocaine HCl (Lidocaine HCl Viscous), 10 ML MM QIDPRN PRN for MOUTH PAIN, ( Reported) Mag Hydrox/Al Hydrox/Simeth (Maalox Maximum Strength Susp), 10 ML PO QIDPRN PRN for MOUTH PAIN, (Reported) FOLLOW UP APPOINTMENT: Dr. Darden as directed , Dr. Muñoz 1 week Time Spent Total time spent with patient [] minutes for coordination of care, counseling, and education. JUAN SMITH MD May 05, 2017 08:51
[2017-05-05] MEDS: TAMSULOSIN 0.4 MG CAP.ER.24H. PO SCH (09:05)
[2017-05-05] MEDS: FERROUS SULFATE 325 MG TABLET. PO SCH (09:05)
[2017-05-05] MEDS: amLODIPine BESYLATE 5 MG TABLET PO SCH (09:05)
[2017-05-05] MEDS: BACLOFEN 10 MG TABLET. PO SCH ×2 (09:05→14:38)
[2017-05-05] MEDS: ATORVASTATIN CALCIUM 10 MG TABLET. PO SCH (09:05)
[2017-05-05] MEDS: SERTRALINE 50 MG TABLET. PO SCH (09:06)
[2017-05-05 10:22] LABS: BASO # 0.1 x10^3/uL (0.0-0.2); BASO % 1 % (0-3); EOS % 9 % (0-3); HEMATOCRIT 23.3 % (39.0-53.0); HEMOGLOBIN 7.7 g/dL (13.0-17.5); LYMPH # 0.7 x10^3/uL (1.0-4.8); LYMPH % 14 % (24-48); MEAN CORPUSCULAR HEMOGLOBIN 34 pg (25-35); MEAN CORPUSCULAR HGB CONC 33 g/dL (31-37); MEAN CORPUSCULAR VOLUME 103 fL (79-100); MONO % 11 % (0-9); NEUT % 65 % (31-73); PLATELET COUNT 27 x10^3/uL (140-400); RED BLOOD COUNT 2.27 x10^6/uL (4.30-5.70); WHITE BLOOD COUNT 5.1 x10^3/uL (4.0-11.0)
--- NOTE | 2017-05-05 10:49 | PDOC ---
PROGRESS NOTES Subjective Subjective HPI - f/u of anemia/MDS ROS - No GI bleed Objective Objective Vital Signs Date Time Temp Pulse Resp B/P (MAP) Pulse Ox O2 Delivery O2 Flow Rate FiO2 05/05/17 09:05 83 114/67 05/05/17 07:30 97.7 19 98 Room Air 97.7 Intake and Output 05/05/17 07:00 Intake Total 990 ml Balance 990 ml Intake Oral 590 ml Blood Product IV Normal Saline Flush 400 ml # Voids 1 Physical Exam Heart: Normal S1, Normal S2 General: Alert, Oriented X3 Lungs: Clear to auscultation Neuro: Normal speech Psych/Mental Status: Mental status NL Assessment Assessment Problems Medical Problems: (1) Anemia Status: Acute (2) Myelodysplastic syndrome Status: Acute (3) Other secondary thrombocytopenia Status: Acute IMPRESSION AND PLAN: 1. Myelodysplastic syndrome. He was started on chemotherapy with Vidaza on 06/30/2015. Chemo with vidaza started 06/30/15. s/p C9 of vidaza 04/19/16. No response, I d/c'ed vidaza. He is on observation. Blasts 4%, stable. 2.Anemia I agree to monitor hemoglobin and transfuse as needed. Hb dropped from 9.6 om 04/25/17 to 6.5 on 05/02/17. No obvious bleed, but suspect bleeding. Hb only 6.6 on 05/03/17 after 1 PRBC. Consulted GI. Hb only 7.1 on 05/04/17 after 2 units total. Concern for active bleed. Ct and bleeding scan 05/04/17 is negative. Hb 7.7 on 05/05/17 - transfuse 1 unit and d/c home. No obvious bleed. 3. Thrombocytopenia, secondary to myelodysplastic syndrome and splenomegaly due to hepatitis C. Plt 9 on 05/02/17. Transfused platelets, now 27. Plan to keep Plt >20 due to GI bleed. 4. Neutropenia, secondary to myelodysplastic syndrome. WBC now 5.4. Comment Review of Relevant I have reviewed the following items ifeanyi (where applicable) has been applied. Labs Laboratory Tests Test 05/04/17 05:05 05/04/17 12:45 05/05/17 10:10 White Blood Count 10.4 x10^3/uL (4.0-11.0) 5.1 x10^3/uL (4.0-11.0) Red Blood Count 1.96 x10^6/uL (4.30-5.70) 2.27 x10^6/uL (4.30-5.70) Hemoglobin 7.1 g/dL (13.0-17.5) 8.0 g/dL (13.0-17.5) 7.7 g/dL (13.0-17.5) Hematocrit 21.1 % (39.0-53.0) 23.9 % (39.0-53.0) 23.3 % (39.0-53.0) Mean Corpuscular Volume 107 fL (79-100) 103 fL (79-100) Mean Corpuscular Hemoglobin 36 pg (25-35) 34 pg (25-35) Mean Corpuscular Hemoglobin Concent 34 g/dL (31-37) 33 g/dL (31-37) 33 g/dL (31-37) Red Cell Distribution Width 28.5 % (11.5-14.5) 29.0 % (11.5-14.5) Platelet Count 37 x10^3/uL (140-400) 27 x10^3/uL (140-400) Sodium Level 136 mmol/L (136-145) Potassium Level 3.9 mmol/L (3.5-5.1) Chloride Level 102 mmol/L (98-107) Carbon Dioxide Level 28 mmol/L (21-32) Anion Gap 6 (6-14) Blood Urea Nitrogen 25 mg/dL (8-26) Creatinine 0.8 mg/dL (0.7-1.3) Estimated GFR (Cockcroft-Gault) 116.0 Glucose Level 102 mg/dL (70-99) Calcium Level 8.3 mg/dL (8.5-10.1) Neutrophils (%) (Auto) 65 % (31-73) Lymphocytes (%) (Auto) 14 % (24-48) Monocytes (%) (Auto) 11 % (0-9) Eosinophils (%) (Auto) 9 % (0-3) Basophils (%) (Auto) 1 % (0-3) Neutrophils # (Auto) 3.3 x10^3uL (1.8-7.7) Lymphocytes # (Auto) 0.7 x10^3/uL (1.0-4.8) Monocytes # (Auto) 0.6 x10^3/uL (0.0-1.1) Eosinophils # (Auto) 0.5 x10^3/uL (0.0-0.7) Basophils # (Auto) 0.1 x10^3/uL (0.0-0.2) Laboratory Tests Test 05/04/17 12:45 05/05/17 10:10 Hemoglobin 8.0 g/dL (13.0-17.5) 7.7 g/dL (13.0-17.5) Hematocrit 23.9 % (39.0-53.0) 23.3 % (39.0-53.0) Mean Corpuscular Hemoglobin Concent 33 g/dL (31-37) 33 g/dL (31-37) White Blood Count 5.1 x10^3/uL (4.0-11.0) Red Blood Count 2.27 x10^6/uL (4.30-5.70) Mean Corpuscular Volume 103 fL (79-100) Mean Corpuscular Hemoglobin 34 pg (25-35) Red Cell Distribution Width 29.0 % (11.5-14.5) Platelet Count 27 x10^3/uL (140-400) Neutrophils (%) (Auto) 65 % (31-73) Lymphocytes (%) (Auto) 14 % (24-48) Monocytes (%) (Auto) 11 % (0-9) Eosinophils (%) (Auto) 9 % (0-3) Basophils (%) (Auto) 1 % (0-3) Neutrophils # (Auto) 3.3 x10^3uL (1.8-7.7) Lymphocytes # (Auto) 0.7 x10^3/uL (1.0-4.8) Monocytes # (Auto) 0.6 x10^3/uL (0.0-1.1) Eosinophils # (Auto) 0.5 x10^3/uL (0.0-0.7) Basophils # (Auto) 0.1 x10^3/uL (0.0-0.2) Medications Current Medications Ondansetron HCl (Zofran) 4 mg PRN Q8HRS PRN IV NAUSEA/VOMITING; Start at 16:45; Stop 05/03/17 at 16:44; Status DC Morphine Sulfate 2 mg PRN Q2HR PRN IV PAIN; Start 05/02/17 at 16:45; Stop 05/08 at 16:44; Status DC Acetaminophen (Tylenol) 650 mg PRN Q4HRS PRN PO FEVER; Start 05/02/17 at 16:45 ; Stop 05/02/17 at 20:29; Status DC Acetaminophen (Tylenol) 325 mg PRN Q4HRS PRN PO BACK PAIN; Start 05/02/17 at 20:30 Alprazolam (Xanax) 1 mg PRN BID PRN PO ANXIETY Last administered on 05/05/17 09:05; Start 05/02/17 at 20:30 Amlodipine Besylate (Norvasc) 5 mg DAILY PO Last administered on 05/05/17 09: 05; Start 05/03/17 at 09:00 Atorvastatin Calcium (Lipitor) 10 mg QHS PO ; Start 05/02/17 at 21:00; Stop at 11:11; Status DC Baclofen (Lioresal) 10 mg TID PO Last administered on 05/05/17 09:05; Start 05/02/17 at 21:00 Ferrous Sulfate (Feosol) 325 mg DAILY PO Last administered on 05/05/17 09:05 ; Start 05/03/17 at 09:00 Acetaminophen/ Hydrocodone Bitart (Lortab 10/325) 1 tab PRN Q6HRS PRN PO SEVERE PAIN Last administered on 05/05/17 06:03; Start 05/02/17 at 20:30 Lidocaine HCl (Viscous Lidocaine) 10 ml QIDPRN PRN MM MOUTH PAIN; Start at 20:30 Al Hydroxide/Mg Hydroxide (Mylanta Plus Xs) 10 ml QIDPRN PRN PO MOUTH PAIN; Start 05/02/17 at 20:30 Tamsulosin HCl (Flomax) 0.4 mg DAILY PO Last administered on 05/05/17 09:05; Start 05/03/17 at 09:00 Diphenhydramine HCl (Benadryl Oral Elixir) 12.5 mg PRN QID PRN PO ALLERGIES; Start 05/02/17 at 20:30 Zolpidem Tartrate (Ambien) 5 mg PRN QHS PRN PO INSOMNIA, MAY REPEAT IN 1HR; Start 05/02/17 at 20:30 Pantoprazole Sodium (Protonix) 40 mg DAILYAC PO Last administered on 05:50; Start 05/03/17 at 07:30 Sertraline HCl (Zoloft) 100 mg DAILY PO Last administered on 05/05/17 09:06; Start 05/03/17 at 09:00 Atorvastatin Calcium (Lipitor) 10 mg DAILY PO Last administered on 05/05/17 09:05; Start 05/03/17 at 11:30 Iohexol (Omnipaque 240 Mg/ml) 30 ml 1X ONCE PO Last administered on 14:43; Start 05/04/17 at 13:30; Stop 05/04/17 at 13:31; Status DC Iohexol (Omnipaque 300 Mg/ml) 75 ml 1X ONCE IV Last administered on 14:42; Start 05/04/17 at 13:30; Stop 05/04/17 at 13:31; Status DC Info (Do NOT chart on this entry -- for MONITORING) 1 each PRN DAILY PRN MC SEE COMMENTS; Start 05/04/17 at 13:30; Stop 05/06/17 at 13:29 Active Scripts Active Reported Lunesta (Eszopiclone) 3 Mg Tablet 2 Mg PO HS PRN Ferrous Sulfate 325 Mg Tablet 65 Mg PO DAILY Tylenol (Acetaminophen) 325 Mg Tablet 325 Mg PO PRN Benadryl Allergy (Diphenhydramine Hcl) 12.5 Mg/5 Ml Liquid 12.5 Mg PO QIDPRN PRN Mixing with Lidocaine and Maalox to make magic mouthwash. Maalox Maximum Strength Susp (Mag Hydrox/Al Hydrox/Simeth) 355 Ml Oral.susp 10 Ml PO QIDPRN PRN Mixing with Benadryl and Lidocaine to make magic mouthwash Lidocaine HCl Viscous (Lidocaine HCl) 15 Ml Solution 10 Ml MM QIDPRN PRN Mixing with Maalox and Benadryl at home to make Magic Mouthwash. (was too expensive as a compound) Zoloft (Sertraline Hcl) 100 Mg Tablet 100 Mg PO DAILY Baclofen 10 Mg Tablet 1 Tab PO TID Amlodipine Besylate 5 Mg Tablet 5 Mg PO DAILY Flomax (Tamsulosin Hcl) 0.4 Mg Cap.er.24h 1 Cap PO DAILY Omeprazole 40 Mg Capsule.dr 1 Cap PO DAILY Hydrocodone-Apap 10-325 (Hydrocodone Bit/Acetaminophen) 1 Each Tablet 10- 325 Mg PO PRN Q6HRS PRN Atorvastatin Calcium 10 Mg Tablet 10 Mg PO DAILY Alprazolam 1 Mg Tablet 1 Mg PO PRN BID PRN Vitals/I & O Vital Sign - Last 24 Hours 05/04/17 05/04/17 05/04/17 05/04/17 11:00 11:38 12:52 15:00 Temp 97.9 97.7 97.9 97.7 97.9 97.7 97.9 97.7 Pulse 81 79 84 81 Resp 18 18 18 18 B/P (MAP) 114/64 (81) 115/69 123/66 124/67 (86) Pulse Ox 96 99 O2 Delivery Room Air Room Air 05/04/17 05/04/17 05/04/17 05/04/17 19:00 20:00 20:30 21:30 Temp 98.8 98.8 Pulse 86 Resp 18 20 18 B/P (MAP) 116/66 (83) Pulse Ox 96 99 O2 Delivery Room Air Room Air Room Air 05/04/17 05/05/17 05/05/17 05/05/17 23:15 03:06 06:03 07:14 Temp 98.2 97.9 98.2 97.9 Pulse 77 84 Resp 18 18 20 B/P (MAP) 96/57 (70) 127/77 (94) Pulse Ox 100 98 98 98 O2 Delivery Room Air Room Air Room Air Room Air 05/05/17 05/05/17 07:30 09:05 Temp 97.7 97.7 Pulse 83 83 Resp 19 B/P (MAP) 114/67 (83) 114/67 Pulse Ox 98 O2 Delivery Room Air Intake and Output 05/04/17 05/04/17 05/05/17 15:00 23:00 07:00 Intake Total 400 ml 350 ml 240 ml Balance 400 ml 350 ml 240 ml OSITO HUFF MD May 05, 2017 10:49
--- NOTE | 2017-05-05 11:44 | PDOC ---
Subjective: Subjective: Seen earlier this morning during [employer] downtime. No bleeding, says might DC today. Objective: Vital Signs: Vital Signs Date Time Temp Pulse Resp B/P (MAP) Pulse Ox O2 Delivery O2 Flow Rate FiO2 05/05/17 11:29 97.9 76 18 115/63 (80) 99 Room Air 97.9 Labs: Laboratory Tests Test 05/04/17 12:45 05/05/17 10:10 Hemoglobin 8.0 g/dL 7.7 g/dL Hematocrit 23.9 % 23.3 % Mean Corpuscular Hemoglobin Concent 33 g/dL 33 g/dL White Blood Count 5.1 x10^3/uL Red Blood Count 2.27 x10^6/uL Mean Corpuscular Volume 103 fL Mean Corpuscular Hemoglobin 34 pg Red Cell Distribution Width 29.0 % Platelet Count 27 x10^3/uL Neutrophils (%) (Auto) 65 % Lymphocytes (%) (Auto) 14 % Monocytes (%) (Auto) 11 % Eosinophils (%) (Auto) 9 % Basophils (%) (Auto) 1 % Neutrophils # (Auto) 3.3 x10^3uL Lymphocytes # (Auto) 0.7 x10^3/uL Monocytes # (Auto) 0.6 x10^3/uL Eosinophils # (Auto) 0.5 x10^3/uL Basophils # (Auto) 0.1 x10^3/uL Imaging: CT A/P 05/04/17 Impression: 1. No evidence of acute intra-abdominal abnormality is identified. 2. Probable hepatic steatosis. 3. Stable right adrenal gland nodule. Bleeding Scan 05/04/17 IMPRESSION: Negative radionuclide GI bleeding scan. 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 KULWANT SEBASTIAN May 05, 2017 11:44
[2017-05-05 15:38] LABS: HEMATOCRIT 26.9 % (39.0-53.0); HEMOGLOBIN 8.9 g/dL (13.0-17.5)
[2017-05-05] MEDS ORDERED: HEPARIN PF 500 UNIT/5 ML DISP.SYRIN. IV ONE (16:00)
== END 2017-05-05 14:20 | disposition home or self-care (01) | DRG 812 ==
LOC: ER 14:24 → 5 NORTH 16:12
PROVIDERS: ADMIT Internal Medicine; ATTEND Internal Medicine
PROC: 30233R1 Transfusion of Nonautologous Platelets into Peripheral Vein, Percutaneous Approach (ICD-10-PCS; principal; 2017-05-03)
PROC: 30233N1 Transfusion of Nonautologous Red Blood Cells into Peripheral Vein, Percutaneous Approach (ICD-10-PCS; 2017-05-03)
DX: D46.9 Myelodysplastic syndrome, unspecified (principal); D61.818 Other pancytopenia; D69.59 Other secondary thrombocytopenia; B19.20 Unspecified viral hepatitis C without hepatic coma; E78.00 Pure hypercholesterolemia, unspecified; E78.5 Hyperlipidemia, unspecified; F17.210 Nicotine dependence, cigarettes, uncomplicated; F32.9 Major depressive disorder, single episode, unspecified; I10 Essential (primary) hypertension; K21.9 Gastro-esophageal reflux disease without esophagitis; M19.90 Unspecified osteoarthritis, unspecified site; N40.0 Benign prostatic hyperplasia without lower urinary tract symptoms; Z82.3 Family history of stroke; Z82.49 Family history of ischemic heart disease and other diseases of the circulatory system; Z83.3 Family history of diabetes mellitus; Z98.49 Cataract extraction status, unspecified eye; Z80.9 Family history of malignant neoplasm, unspecified; M54.5 Low back pain
CPT/HCPCS: 36415; 74177; 78278; 80048; 80053; 85007; 85014; 85018; 85025; 85027; 85610; 86850; 86900; 86901; 86920; 93976; 96374; A9560; P9016; P9035; Q9966; Q9967; 99285-25

== ENCOUNTER 2017-07-08 09:57 | Inpatient (IN) | payer MEDICARE, MEDICAID ==
[2017-07-08] MEDS: PANTOPRAZOLE SODIUM IV DRIP 80 MG in IV NORMAL SALINE 100ML 100 ML IV ×2 (10:47→18:29)
[2017-07-08] MEDS: PANTOPRAZOLE IV PUSH 40 MG VIAL. IVP (10:47)
[2017-07-08 10:50] LABS: FECAL OB PT POSITIVE (NEG); NEG OBC FOB NEG; POS OBC FOB POS
[2017-07-08 10:51] LABS: ADD MAN DIFF? NO
[2017-07-08 10:58] LABS: BASO % 0 % (0-3); EOS # 0.2 x10^3/uL (0.0-0.7); EOS % 2 % (0-3); LYMPH # 0.8 x10^3/uL (1.0-4.8); LYMPH % 7 % (24-48); MEAN CORPUSCULAR HEMOGLOBIN 34 pg (25-35); MEAN CORPUSCULAR HGB CONC 34 g/dL (31-37); MEAN CORPUSCULAR VOLUME 101 fL (79-100); MONO # 9.5 x10^3/uL (0.0-1.1); MONO % 85 % (0-9); NEUT # 0.7 x10^3uL (1.8-7.7); NEUT % 6 % (31-73); RED BLOOD COUNT 1.97 x10^6/uL (4.30-5.70); RED CELL DISTRIBUTION WIDTH 28.9 % (11.5-14.5); WHITE BLOOD COUNT 11.2 x10^3/uL (4.0-11.0)
[2017-07-08 11:02] LABS: ANION GAP 10 (6-14); BLOOD UREA NITROGEN 22 mg/dL (8-26); BUN/CREATININE RATIO 24 (6-20); CALCIUM 9.2 mg/dL (8.5-10.1); CARBON DIOXIDE 27 mmol/L (21-32); CHLORIDE 99 mmol/L (98-107); CREATININE 0.9 mg/dL (0.7-1.3); GFR 101.2; GLUCOSE 117 mg/dL (70-99); POTASSIUM 3.9 mmol/L (3.5-5.1); SODIUM 136 mmol/L (136-145)
[2017-07-08 11:08] LABS: ALBUMIN 3.7 g/dL (3.4-5.0); ALK PHOS 123 U/L (46-116); ALT (SGPT) 32 U/L (16-63); AST (SGOT) 34 U/L (15-37); TOTAL BILIRUBIN 0.7 mg/dL (0.2-1.0); TOTAL PROTEIN 7.5 g/dL (6.4-8.2)
[2017-07-08 11:10] LABS: HEMOGLOBIN 6.7 g/dL (13.0-17.5); PLATELET COUNT 19 x10^3/uL (140-400)
[2017-07-08 11:13] LABS: INR 1.2 (0.8-1.1); PARTIAL THROMBOPLASTIN TIME 28 SEC (24-38); PROTHROMBIN TIME PATIENT 14.2 SEC (11.7-14.0)
[2017-07-08] MEDS ORDERED: ONDANSETRON PF 4 MG/2 ML VIAL. IV (11:15)
[2017-07-08] MEDS ORDERED: fentaNYL PF VIAL 100 MCG/2 ML VIAL IV (11:15)
[2017-07-08 13:19] LABS: IMMEDIATE SPIN CROSSMATCH 1
[2017-07-08] MEDS: HYDROcodone/APAP 10/325 1 TAB TABLET PO ×2 (14:53→21:05)
[2017-07-08] MEDS: BACLOFEN 10 MG TABLET. PO ×2 (14:54→21:04)
[2017-07-08 16:40] LABS: IMMEDIATE SPIN CROSSMATCH 1 2
[2017-07-08 17:34] LABS: % BASOS 2 % (0-3); % EOS 6 % (0-5); % LYMPHS 6 % (24-48); % MONOS 1 % (0-10); % SEGS 84 % (35-66); NUCLEATED RBC 3
[2017-07-08 17:35] LABS: ANISOCYTOSIS MARKED; HYPOCHROMIA MOD; PLT ESTIMATE DECREASED (ADEQUATE); POIKILOCYTOSIS SLIGHT; POLYCHROMASIA SLIGHT
[2017-07-08 18:13] LABS: HEMATOCRIT 21.8 % (39.0-53.0); HEMOGLOBIN 7.3 g/dL (13.0-17.5); MEAN CORPUSCULAR HEMOGLOBIN 34 pg (25-35); MEAN CORPUSCULAR HGB CONC 34 g/dL (31-37); MEAN CORPUSCULAR VOLUME 100 fL (79-100); PLATELET COUNT 53 x10^3/uL (140-400); RED BLOOD COUNT 2.18 x10^6/uL (4.30-5.70); RED CELL DISTRIBUTION WIDTH 26.1 % (11.5-14.5); WHITE BLOOD COUNT 21.5 x10^3/uL (4.0-11.0)
[2017-07-08 21:03] LABS: IMMEDIATE SPIN CROSSMATCH 1
[2017-07-08] MEDS: ALPRAZolam 1 MG TABLET PO (21:04)
[2017-07-08] MEDS: ATORVASTATIN CALCIUM 10 MG TABLET. PO (21:04)
[2017-07-09] MEDS: PANTOPRAZOLE SODIUM IV DRIP 80 MG in IV NORMAL SALINE 100ML 100 ML IV (03:47)
[2017-07-09 05:57] LABS: ADD MAN DIFF? NO
[2017-07-09 06:05] LABS: BASO # 0.2 x10^3/uL (0.0-0.2); BASO % 1 % (0-3); EOS % 4 % (0-3); HEMATOCRIT 26.5 % (39.0-53.0); HEMOGLOBIN 8.6 g/dL (13.0-17.5); LYMPH # 1.5 x10^3/uL (1.0-4.8); LYMPH % 6 % (24-48); MEAN CORPUSCULAR HEMOGLOBIN 32 pg (25-35); MEAN CORPUSCULAR HGB CONC 32 g/dL (31-37); MEAN CORPUSCULAR VOLUME 100 fL (79-100); MONO # 1.3 x10^3/uL (0.0-1.1); MONO % 6 % (0-9); NEUT # 20.5 x10^3uL (1.8-7.7); NEUT % 84 % (31-73); PLATELET COUNT 41 x10^3/uL (140-400); RED BLOOD COUNT 2.64 x10^6/uL (4.30-5.70); RED CELL DISTRIBUTION WIDTH 24.5 % (11.5-14.5); WHITE BLOOD COUNT 24.5 x10^3/uL (4.0-11.0)
[2017-07-09 06:17] LABS: ANION GAP 7 (6-14); BLOOD UREA NITROGEN 15 mg/dL (8-26); CARBON DIOXIDE 28 mmol/L (21-32); CHLORIDE 101 mmol/L (98-107); CREATININE 0.8 mg/dL (0.7-1.3); GLUCOSE 94 mg/dL (70-99); SODIUM 136 mmol/L (136-145)
[2017-07-09] MEDS: TAMSULOSIN 0.4 MG CAP.ER.24H. PO (07:46)
[2017-07-09] MEDS: SERTRALINE 50 MG TABLET. PO (07:46)
[2017-07-09] MEDS: ALPRAZolam 1 MG TABLET PO (07:47)
[2017-07-09] MEDS: amLODIPine BESYLATE 5 MG TABLET PO (07:47)
[2017-07-09] MEDS: BACLOFEN 10 MG TABLET. PO (07:48)
[2017-07-09] MEDS: HYDROcodone/APAP 10/325 1 TAB TABLET PO (07:48)
[2017-07-09] MEDS ORDERED: NON FORMULARY ITEM (Omeprazole 1 CAP) PO (09:00)
[2017-07-09] MEDS: HEPARIN PF 500 UNIT/5 ML DISP.SYRIN. IV (15:44)
[2017-07-10 00:12] LABS: MRSA BY PCR Negative (Negative)
[2017-07-11 19:58] LABS: % BLASTS 1 % (0-0)
== END 2017-07-09 16:04 | disposition home or self-care (01) | DRG 808 ==
LOC: ER 09:57 → 1 WEST ICU 10:51
PROC: 30233R1 Transfusion of Nonautologous Platelets into Peripheral Vein, Percutaneous Approach (ICD-10-PCS; principal; 2017-07-08)
PROC: 30233N1 Transfusion of Nonautologous Red Blood Cells into Peripheral Vein, Percutaneous Approach (ICD-10-PCS; 2017-07-08)
DX: D61.818 Other pancytopenia (principal); K31.811 Angiodysplasia of stomach and duodenum with bleeding; D69.59 Other secondary thrombocytopenia; D46.9 Myelodysplastic syndrome, unspecified; D50.0 Iron deficiency anemia secondary to blood loss (chronic); K21.9 Gastro-esophageal reflux disease without esophagitis; K92.1 Melena; E78.00 Pure hypercholesterolemia, unspecified; E78.5 Hyperlipidemia, unspecified; I10 Essential (primary) hypertension; M19.90 Unspecified osteoarthritis, unspecified site; Q92.9 Trisomy and partial trisomy of autosomes, unspecified; Z82.3 Family history of stroke; Z82.49 Family history of ischemic heart disease and other diseases of the circulatory system; Z83.3 Family history of diabetes mellitus; Z87.01 Personal history of pneumonia (recurrent); Z98.49 Cataract extraction status, unspecified eye
CPT/HCPCS: 36415; 80048; 80053; 82274; 85007; 85025; 85027; 85610; 85730; 86850; 86900; 86901; 86920; 87641; 96374; 99291; 99291-25; C9113; P9016; P9035

== ENCOUNTER 2017-08-08 11:27 | Inpatient (IN) | payer MEDICARE, MEDICAID ==
[2017-08-08 12:40] LABS: BASO # 0.1 x10^3/uL (0.0-0.2); BASO % 1 % (0-3); EOS # 0.5 x10^3/uL (0.0-0.7); EOS % 8 % (0-3); HEMATOCRIT 21.7 % (39.0-53.0); HEMOGLOBIN 7.4 g/dL (13.0-17.5); LYMPH # 0.5 x10^3/uL (1.0-4.8); LYMPH % 8 % (24-48); MEAN CORPUSCULAR HEMOGLOBIN 33 pg (25-35); MEAN CORPUSCULAR HGB CONC 34 g/dL (31-37); MEAN CORPUSCULAR VOLUME 97 fL (79-100); MONO # 0.1 x10^3/uL (0.0-1.1); MONO % 1 % (0-9); NEUT # 5.1 x10^3uL (1.8-7.7); NEUT % 82 % (31-73); RED BLOOD COUNT 2.25 x10^6/uL (4.30-5.70); RED CELL DISTRIBUTION WIDTH 23.9 % (11.5-14.5); WHITE BLOOD COUNT 6.2 x10^3/uL (4.0-11.0)
[2017-08-08 12:42] LABS: GASTRIC OB PAT NEGATIVE (NEG); NEG OBC GOB NEG; POS OBC GOB POS
[2017-08-08 12:46] LABS: ADD MAN DIFF? YES; PLATELET COUNT 12 x10^3/uL (140-400)
[2017-08-08 12:50] LABS: ANION GAP 11 (6-14); BLOOD UREA NITROGEN 26 mg/dL (8-26); BUN/CREATININE RATIO 24 (6-20); CALCIUM 9.4 mg/dL (8.5-10.1); CARBON DIOXIDE 25 mmol/L (21-32); CHLORIDE 102 mmol/L (98-107); CREATININE 1.1 mg/dL (0.7-1.3); GFR 80.3; GLUCOSE 184 mg/dL (70-99); POTASSIUM 3.9 mmol/L (3.5-5.1); SODIUM 138 mmol/L (136-145)
[2017-08-08 12:55] LABS: ALBUMIN 3.5 g/dL (3.4-5.0); ALBUMIN/GLOBULIN RATIO 0.9 (1.0-1.7); ALK PHOS 66 U/L (46-116); ALT (SGPT) 19 U/L (16-63); AST (SGOT) 14 U/L (15-37); TOTAL BILIRUBIN 0.6 mg/dL (0.2-1.0); TOTAL PROTEIN 7.6 g/dL (6.4-8.2)
[2017-08-08 14:03] LABS: % BANDS 4 % (0-9); % BASOS 6 % (0-3); % BLASTS 3 % (0-0); % EOS 12 % (0-5); % LYMPHS 4 % (24-48); % METAS 4 % (0-0); % MONOS 1 % (0-10); % MYELOS 1 % (0-0); % PROS 1 % (0-0); % SEGS 64 % (35-66); NUCLEATED RBC 1
[2017-08-08 14:04] LABS: PLT ESTIMATE DECREASED (ADEQUATE)
[2017-08-08 14:05] LABS: ANISOCYTOSIS MOD
[2017-08-08 14:06] LABS: POIKILOCYTOSIS SLIGHT; POLYCHROMASIA SLIGHT; TEAR DROP CELLS OCC
[2017-08-08 14:09] LABS: OVALOCYTES FEW
[2017-08-08 14:10] LABS: HOWELL-JOLLY BODIES PRESENT
[2017-08-08] MEDS: ACETAMINOPHEN 325 MG TABLET. PO (14:43)
[2017-08-08] MEDS: diphenhydrAMINE 50 MG/ML VIAL IVP (14:43)
[2017-08-08 14:45] LABS: IMMEDIATE SPIN CROSSMATCH 1
[2017-08-08] MEDS: HYDROcodone/APAP 10/325 1 TAB TABLET PO ×2 (16:48→23:05)
[2017-08-08] MEDS: ALPRAZolam 1 MG TABLET PO ×2 (16:49→23:05)
[2017-08-08] MEDS: BACLOFEN 10 MG TABLET. PO ×2 (16:49→23:05)
[2017-08-08] MEDS: traZODone 50 MG TABLET. PO (21:01)
[2017-08-08 22:41] LABS: IMMEDIATE SPIN CROSSMATCH 1 2
[2017-08-09 05:49] LABS: ANION GAP 7 (6-14); BLOOD UREA NITROGEN 22 mg/dL (8-26); CALCIUM 8.7 mg/dL (8.5-10.1); CARBON DIOXIDE 28 mmol/L (21-32); CHLORIDE 102 mmol/L (98-107); GFR 89.6; GLUCOSE 102 mg/dL (70-99); POTASSIUM 4.2 mmol/L (3.5-5.1); SODIUM 137 mmol/L (136-145)
[2017-08-09 06:30] LABS: BASO # 0.1 x10^3/uL (0.0-0.2); BASO % 1 % (0-3); EOS # 1.2 x10^3/uL (0.0-0.7); EOS % 7 % (0-3); HEMATOCRIT 23.4 % (39.0-53.0); LYMPH # 1.4 x10^3/uL (1.0-4.8); LYMPH % 8 % (24-48); MEAN CORPUSCULAR HEMOGLOBIN 32 pg (25-35); MEAN CORPUSCULAR HGB CONC 34 g/dL (31-37); MEAN CORPUSCULAR VOLUME 93 fL (79-100); MONO # 0.2 x10^3/uL (0.0-1.1); MONO % 1 % (0-9); NEUT # 14.6 x10^3uL (1.8-7.7); NEUT % 83 % (31-73); PLATELET COUNT 43 x10^3/uL (140-400); RED BLOOD COUNT 2.52 x10^6/uL (4.30-5.70); RED CELL DISTRIBUTION WIDTH 16.3 % (11.5-14.5); WHITE BLOOD COUNT 17.4 x10^3/uL (4.0-11.0)
[2017-08-09 07:00] LABS: ADD MAN DIFF? YES
[2017-08-09] MEDS: BACLOFEN 10 MG TABLET. PO (08:06)
[2017-08-09] MEDS: FLUTICASONE 50MCG/NASAL SPRAY 16GM BOTTLE. NS (08:06)
[2017-08-09] MEDS: TAMSULOSIN 0.4 MG CAP.ER.24H. PO (08:06)
[2017-08-09] MEDS: ATORVASTATIN CALCIUM 10 MG TABLET. PO (08:07)
[2017-08-09] MEDS: SERTRALINE 50 MG TABLET. PO (08:07)
[2017-08-09] MEDS: amLODIPine BESYLATE 5 MG TABLET PO (08:07)
[2017-08-09] MEDS: PANTOPRAZOLE 40 MG TABLET.DR. PO (08:07)
[2017-08-09] MEDS: HYDROcodone/APAP 10/325 1 TAB TABLET PO (08:08)
[2017-08-09 09:57] LABS: % BANDS 1 % (0-9); % BLASTS 1 % (0-0); % EOS 4 % (0-5); % LYMPHS 5 % (24-48); % METAS 1 % (0-0); % MONOS 1 % (0-10); % MYELOS 2 % (0-0); % SEGS 85 % (35-66); NUCLEATED RBC 2
[2017-08-09 09:58] LABS: ANISOCYTOSIS PRESENT; PLT ESTIMATE DECREASED (ADEQUATE); POLYCHROMASIA PRESENT
[2017-08-09 10:56] LABS: POIKILOCYTOSIS PRESENT
== END 2017-08-09 13:50 | disposition home or self-care (01) | DRG 812 ==
LOC: ER 11:27 → 5 SOUTH 12:50
PROC: 30233R1 Transfusion of Nonautologous Platelets into Peripheral Vein, Percutaneous Approach (ICD-10-PCS; principal; 2017-08-08)
PROC: 30233N1 Transfusion of Nonautologous Red Blood Cells into Peripheral Vein, Percutaneous Approach (ICD-10-PCS; 2017-08-08)
DX: D46.9 Myelodysplastic syndrome, unspecified (principal); D69.59 Other secondary thrombocytopenia; B19.20 Unspecified viral hepatitis C without hepatic coma; E78.00 Pure hypercholesterolemia, unspecified; E78.5 Hyperlipidemia, unspecified; K21.9 Gastro-esophageal reflux disease without esophagitis; I10 Essential (primary) hypertension; M19.90 Unspecified osteoarthritis, unspecified site; M54.5 Low back pain; S40.022A Contusion of left upper arm, initial encounter; Z98.49 Cataract extraction status, unspecified eye; Z80.9 Family history of malignant neoplasm, unspecified; Z82.3 Family history of stroke; Z82.49 Family history of ischemic heart disease and other diseases of the circulatory system; Z83.3 Family history of diabetes mellitus; X58.XXXA Exposure to other specified factors, initial encounter; Y93.89 Activity, other specified; Y92.89 Other specified places as the place of occurrence of the external cause; Y99.8 Other external cause status
CPT/HCPCS: 36415; 80048; 80053; 82271; 85007; 85025; 86850; 86900; 86901; 86920; 93005; 99285; 99285-25; J1200; P9016; P9035

== ENCOUNTER 2017-10-18 12:58 | Emergency (ER) | payer MEDICARE, MEDICAID ==
[2017-10-18 14:03] LABS: BASO % 1 % (0-3); EOS # 0.3 x10^3/uL (0.0-0.7); EOS % 8 % (0-3); LYMPH # 0.5 x10^3/uL (1.0-4.8); LYMPH % 14 % (24-48); MEAN CORPUSCULAR HEMOGLOBIN 31 pg (25-35); MEAN CORPUSCULAR HGB CONC 35 g/dL (31-37); MEAN CORPUSCULAR VOLUME 90 fL (79-100); MONO # 0.6 x10^3/uL (0.0-1.1); MONO % 18 % (0-9); NEUT # 2.2 x10^3uL (1.8-7.7); NEUT % 60 % (31-73); RED BLOOD COUNT 1.85 x10^6/uL (4.30-5.70); RED CELL DISTRIBUTION WIDTH 17.8 % (11.5-14.5); WHITE BLOOD COUNT 3.6 x10^3/uL (4.0-11.0)
[2017-10-18 14:04] LABS: ANION GAP 5 (6-14); BLOOD UREA NITROGEN 21 mg/dL (8-26); BUN/CREATININE RATIO 26 (6-20); CALCIUM 8.7 mg/dL (8.5-10.1); CARBON DIOXIDE 31 mmol/L (21-32); CHLORIDE 102 mmol/L (98-107); CREATININE 0.8 mg/dL (0.7-1.3); GLUCOSE 114 mg/dL (70-99); POTASSIUM 4.6 mmol/L (3.5-5.1); SODIUM 138 mmol/L (136-145)
[2017-10-18 14:06] LABS: HEMOGLOBIN 5.8 g/dL (13.0-17.5)
[2017-10-18 14:07] LABS: ADD MAN DIFF? YES; HEMATOCRIT 16.6 % (39.0-53.0); PLATELET COUNT 22 x10^3/uL (140-400)
[2017-10-18 14:11] LABS: ALBUMIN 3.3 g/dL (3.4-5.0); ALBUMIN/GLOBULIN RATIO 0.9 (1.0-1.7); ALK PHOS 59 U/L (46-116); ALT (SGPT) 21 U/L (16-63); AST (SGOT) 7 U/L (15-37); TOTAL BILIRUBIN 0.7 mg/dL (0.2-1.0); TOTAL PROTEIN 7.1 g/dL (6.4-8.2)
[2017-10-18] MEDS: ACETAMINOPHEN 325 MG TABLET. PO (16:36)
[2017-10-18] MEDS: diphenhydrAMINE 50 MG/ML VIAL IVP (16:37)
[2017-10-18 18:47] LABS: IMMEDIATE SPIN CROSSMATCH 1 2
[2017-10-19 05:18] LABS: % BASOS 1 % (0-3); % BLASTS 11 % (0-0); % EOS 2 % (0-5); % LYMPHS 19 % (24-48); % MONOS 6 % (0-10); % SEGS 61 % (35-66)
[2017-10-19 05:19] LABS: NUCLEATED RBC 4; PLT ESTIMATE DECREASED (ADEQUATE)
== END 2017-10-18 21:18 | disposition home or self-care (01) ==
LOC: ER 12:58
DX: D64.9 Anemia, unspecified (principal); C92.00 Acute myeloblastic leukemia, not having achieved remission; I10 Essential (primary) hypertension; E78.00 Pure hypercholesterolemia, unspecified; K21.9 Gastro-esophageal reflux disease without esophagitis
CPT/HCPCS: 36415; 80053; 85007; 85025; 86850; 86900; 86901; 86920; 96374; 99284-25; J1200; P9016

== ENCOUNTER 2017-10-20 15:19 | Inpatient (IN) | payer MEDICARE, MEDICAID ==
[2017-10-20 15:58] LABS: ADD MAN DIFF? NO
[2017-10-20 16:03] LABS: BASO % 1 % (0-3); EOS # 0.1 x10^3/uL (0.0-0.7); EOS % 5 % (0-3); LYMPH # 0.4 x10^3/uL (1.0-4.8); LYMPH % 12 % (24-48); MEAN CORPUSCULAR HEMOGLOBIN 32 pg (25-35); MEAN CORPUSCULAR HGB CONC 35 g/dL (31-37); MEAN CORPUSCULAR VOLUME 92 fL (79-100); MONO # 0.5 x10^3/uL (0.0-1.1); MONO % 16 % (0-9); NEUT % 66 % (31-73); PLATELET COUNT 28 x10^3/uL (140-400); RED BLOOD COUNT 1.85 x10^6/uL (4.30-5.70); RED CELL DISTRIBUTION WIDTH 17.3 % (11.5-14.5); WHITE BLOOD COUNT 3.1 x10^3/uL (4.0-11.0)
[2017-10-20 16:06] LABS: HEMATOCRIT 16.9 % (39.0-53.0)
[2017-10-20 16:11] LABS: ANION GAP 7 (6-14); BLOOD UREA NITROGEN 29 mg/dL (8-26); BUN/CREATININE RATIO 32 (6-20); CALCIUM 8.4 mg/dL (8.5-10.1); CARBON DIOXIDE 28 mmol/L (21-32); CHLORIDE 100 mmol/L (98-107); CREATININE 0.9 mg/dL (0.7-1.3); GFR 101.2; GLUCOSE 127 mg/dL (70-99); POTASSIUM 5.3 mmol/L (3.5-5.1); SODIUM 135 mmol/L (136-145)
[2017-10-20 16:17] LABS: ALBUMIN 3.1 g/dL (3.4-5.0); ALBUMIN/GLOBULIN RATIO 0.9 (1.0-1.7); ALK PHOS 53 U/L (46-116); ALT (SGPT) 21 U/L (16-63); AST (SGOT) 16 U/L (15-37); TOTAL BILIRUBIN 0.6 mg/dL (0.2-1.0); TOTAL PROTEIN 6.6 g/dL (6.4-8.2)
[2017-10-20] MEDS ORDERED: ONDANSETRON PF 4 MG/2 ML VIAL. IV (16:45)
[2017-10-20 16:49] LABS: BILIRUBIN,URINE NEGATIVE (NEG); CLARITY,URINE CLEAR; COLOR,URINE YELLOW; GLUCOSE,URINE NEGATIVE (NEG); NITRITE,URINE NEGATIVE (NEG); PROTEIN,URINE NEGATIVE (NEG-TRACE)
[2017-10-20 16:52] LABS: FECAL OB PT NEGATIVE (NEG); NEG OBC FOB NEG; POS OBC FOB POS
[2017-10-20 17:01] LABS: BACTERIA,URINE 0 /HPF (0-FEW); RBC,URINE 0 /HPF (0-2); WBC,URINE OCC /HPF (0-4)
[2017-10-20] MEDS: MORPHINE SULFATE 4 MG/ML DISP.SYRIN. IV (17:20)
[2017-10-20] MEDS: ACETAMINOPHEN 325 MG TABLET. PO (18:37)
[2017-10-20] MEDS ORDERED: diphenhydrAMINE HCL 25 MG CAPSULE PO (19:15)
[2017-10-20] MEDS ORDERED: MORPHINE SULFATE 4 MG/ML DISP.SYRIN. IV (19:15)
[2017-10-20] MEDS: ATORVASTATIN CALCIUM 10 MG TABLET. PO (19:53)
[2017-10-20] MEDS: BACLOFEN 10 MG TABLET. PO (19:53)
[2017-10-20] MEDS: ALPRAZolam 1 MG TABLET PO (19:53)
[2017-10-20] MEDS: HYDROcodone/APAP 10/325 1 TAB TABLET PO (19:54)
[2017-10-20 21:35] LABS: IMMEDIATE SPIN CROSSMATCH 1
[2017-10-21] LABS: IMMEDIATE SPIN CROSSMATCH 1
[2017-10-21] MEDS: ZOLPIDEM 5 MG TABLET. PO (00:03)
[2017-10-21] MEDS: HYDROcodone/APAP 10/325 1 TAB TABLET PO ×2 (00:06→08:27)
[2017-10-21 04:14] LABS: ADD MAN DIFF? NO
[2017-10-21 04:19] LABS: BASO % 2 % (0-3); EOS # 0.1 x10^3/uL (0.0-0.7); EOS % 5 % (0-3); HEMATOCRIT 26.6 % (39.0-53.0); HEMOGLOBIN 9.6 g/dL (13.0-17.5); LYMPH # 0.5 x10^3/uL (1.0-4.8); LYMPH % 18 % (24-48); MEAN CORPUSCULAR HEMOGLOBIN 33 pg (25-35); MEAN CORPUSCULAR HGB CONC 36 g/dL (31-37); MEAN CORPUSCULAR VOLUME 90 fL (79-100); MONO # 0.3 x10^3/uL (0.0-1.1); MONO % 12 % (0-9); NEUT # 1.7 x10^3uL (1.8-7.7); NEUT % 64 % (31-73); RED BLOOD COUNT 2.97 x10^6/uL (4.30-5.70); WHITE BLOOD COUNT 2.6 x10^3/uL (4.0-11.0)
[2017-10-21 04:21] LABS: PLATELET COUNT 17 x10^3/uL (140-400)
[2017-10-21 04:41] LABS: ALBUMIN 3.1 g/dL (3.4-5.0); ALK PHOS 47 U/L (46-116); ALT (SGPT) 22 U/L (16-63); ANION GAP 8 (6-14); AST (SGOT) 19 U/L (15-37); BLOOD UREA NITROGEN 23 mg/dL (8-26); BUN/CREATININE RATIO 29 (6-20); CALCIUM 8.2 mg/dL (8.5-10.1); CARBON DIOXIDE 29 mmol/L (21-32); CHLORIDE 99 mmol/L (98-107); CREATININE 0.8 mg/dL (0.7-1.3); GLUCOSE 110 mg/dL (70-99); POTASSIUM 4.4 mmol/L (3.5-5.1); SODIUM 136 mmol/L (136-145); TOTAL BILIRUBIN 1.4 mg/dL (0.2-1.0); TOTAL PROTEIN 6.3 g/dL (6.4-8.2)
[2017-10-21] MEDS: PANTOPRAZOLE 40 MG TABLET.DR. PO (08:27)
[2017-10-21] MEDS: amLODIPine BESYLATE 5 MG TABLET PO (08:27)
[2017-10-21] MEDS: ALPRAZolam 1 MG TABLET PO (08:27)
[2017-10-21] MEDS: TAMSULOSIN 0.4 MG CAP.ER.24H. PO (08:27)
[2017-10-21] MEDS: SERTRALINE 50 MG TABLET. PO (08:27)
[2017-10-21 09:36] LABS: IMMEDIATE SPIN CROSSMATCH 1 3
== END 2017-10-21 13:19 | disposition home or self-care (01) | DRG 835 ==
LOC: 5 NORTH 17:35 → ER 15:19 → 5 NORTH 16:40
PROC: 30233R1 Transfusion of Nonautologous Platelets into Peripheral Vein, Percutaneous Approach (ICD-10-PCS; principal; 2017-10-20)
PROC: 30233N1 Transfusion of Nonautologous Red Blood Cells into Peripheral Vein, Percutaneous Approach (ICD-10-PCS; 2017-10-20)
PROC: 30233N1 Transfusion of Nonautologous Red Blood Cells into Peripheral Vein, Percutaneous Approach (ICD-10-PCS; 2017-10-21)
DX: C92.00 Acute myeloblastic leukemia, not having achieved remission (principal); E44.0 Moderate protein-calorie malnutrition; D69.59 Other secondary thrombocytopenia; B19.20 Unspecified viral hepatitis C without hepatic coma; E78.00 Pure hypercholesterolemia, unspecified; E78.5 Hyperlipidemia, unspecified; F41.9 Anxiety disorder, unspecified; G47.00 Insomnia, unspecified; G89.29 Other chronic pain; I10 Essential (primary) hypertension; K21.9 Gastro-esophageal reflux disease without esophagitis; F32.9 Major depressive disorder, single episode, unspecified; Q92.9 Trisomy and partial trisomy of autosomes, unspecified; M54.5 Low back pain; M19.90 Unspecified osteoarthritis, unspecified site; Z82.3 Family history of stroke; Z82.49 Family history of ischemic heart disease and other diseases of the circulatory system; Z83.3 Family history of diabetes mellitus; Z87.01 Personal history of pneumonia (recurrent); Z92.21 Personal history of antineoplastic chemotherapy; Z68.24 Body mass index [BMI] 24.0-24.9, adult
CPT/HCPCS: 36415; 80053; 81001; 82274; 85007; 85025; 86850; 86900; 86901; 86920; 96374; 99285; 99285-25; J2270; P9016; P9035

== ENCOUNTER 2017-11-20 19:28 | Inpatient (IN) | payer MEDICARE, MEDICAID ==
[2017-11-20] MEDS ORDERED: 0.9 % SOD CHL for STERILE FIELD 10 ML DISP.SYRIN. (19:32)
[2017-11-20] MEDS ORDERED: NOREPINEPHRIN 8MG/250ML PREMIX 250 ML IV (19:45)
[2017-11-20] MEDS ORDERED: IV NORMAL SALINE 500ML BAG 500 ML IV (19:45)
[2017-11-20 20:06] LABS: BASO % 1 % (0-3); EOS % 10 % (0-3); LYMPH # 0.2 x10^3/uL (1.0-4.8); LYMPH % 42 % (24-48); MEAN CORPUSCULAR HEMOGLOBIN 31 pg (25-35); MEAN CORPUSCULAR HGB CONC 35 g/dL (31-37); MEAN CORPUSCULAR VOLUME 88 fL (79-100); MONO # 0.1 x10^3/uL (0.0-1.1); MONO % 31 % (0-9); NEUT # 0.1 x10^3uL (1.8-7.7); NEUT % 17 % (31-73); RED BLOOD COUNT 2.26 x10^6/uL (4.30-5.70); RED CELL DISTRIBUTION WIDTH 14.5 % (11.5-14.5)
[2017-11-20 20:07] LABS: HEMATOCRIT 19.8 % (39.0-53.0); WHITE BLOOD COUNT 0.4 x10^3/uL (4.0-11.0)
[2017-11-20 20:08] LABS: ADD MAN DIFF? YES; PLATELET COUNT 17 x10^3/uL (140-400)
[2017-11-20 20:13] LABS: ANION GAP 8 (6-14); BLOOD UREA NITROGEN 14 mg/dL (8-26); BUN/CREATININE RATIO 18 (6-20); CALCIUM 8.6 mg/dL (8.5-10.1); CARBON DIOXIDE 27 mmol/L (21-32); CHLORIDE 97 mmol/L (98-107); CREATININE 0.8 mg/dL (0.7-1.3); GLUCOSE 140 mg/dL (70-99); POTASSIUM 4.2 mmol/L (3.5-5.1); SODIUM 132 mmol/L (136-145)
[2017-11-20 20:15] LABS: INR 1.1 (0.8-1.1); PROTHROMBIN TIME PATIENT 13.7 SEC (11.7-14.0)
[2017-11-20 20:19] LABS: ALBUMIN 2.7 g/dL (3.4-5.0); ALBUMIN/GLOBULIN RATIO 0.7 (1.0-1.7); ALK PHOS 62 U/L (46-116); ALT (SGPT) 16 U/L (16-63); AST (SGOT) 12 U/L (15-37); TOTAL BILIRUBIN 0.5 mg/dL (0.2-1.0); TOTAL PROTEIN 6.8 g/dL (6.4-8.2)
[2017-11-20] MEDS ORDERED: HYDROcodone/APAP 10/325 1 TAB TABLET (20:22)
[2017-11-20 20:24] LABS: LACTIC ACID 1.4 mmol/L (0.4-2.0)
[2017-11-20] MEDS: HYDROcodone/APAP 10/325 1 TAB TABLET PO (20:25)
[2017-11-20] MEDS: IV NORMAL SALINE 1000ML BAG 1,000 ML IV ×2 (20:25→23:02)
[2017-11-20] MEDS ORDERED: CEFEPIME HCL 2 GM in IV DEXTROSE 5% 100ML 100 ML IV (20:30)
[2017-11-20 20:37] LABS: PROCALCITONIN 0.25 ng/mL (0.00-0.10)
[2017-11-20] MEDS: VANCOMYCIN 1.75 GM in IV 1/2 NORMAL SALINE 500 ML IV (20:38)
[2017-11-20] MEDS: CEFEPIME HCL IV Push 2 GM VIAL. IVP (20:38)
[2017-11-20] MEDS: VANCOMYCIN PER PHARMACY MC (20:44)
[2017-11-20] MEDS ORDERED: ONDANSETRON PF 4 MG/2 ML VIAL. IV ×2 (21:00→22:00)
[2017-11-20 21:56] LABS: BILIRUBIN,URINE NEGATIVE (NEG); CLARITY,URINE CLEAR; COLOR,URINE AMBER; GLUCOSE,URINE NEGATIVE (NEG); NITRITE,URINE NEGATIVE (NEG); PROTEIN,URINE TRACE mg/dL (NEG-TRACE); UROBILINOGEN,URINE 0.2 mg/dL (0.2 mg/dL)
[2017-11-20 22:00] LABS: BACTERIA,URINE 0 /HPF (0-FEW); HYALINE CASTS, URINE FEW /HPF; RBC,URINE 0 /HPF (0-2); WBC,URINE 0 /HPF (0-4)
[2017-11-20] MEDS ORDERED: ONDANSETRON ODT 4 MG TAB.RAPDIS. PO (22:00)
[2017-11-20] MEDS: ALPRAZolam 1 MG TABLET PO (23:35)
[2017-11-20] MEDS: ZOLPIDEM 5 MG TABLET. PO (23:36)
[2017-11-21] MEDS: IV NORMAL SALINE 1000ML BAG 1,000 ML IV ×2 (06:39→17:19)
[2017-11-21] MEDS: PANTOPRAZOLE 40 MG TABLET.DR. PO (06:39)
[2017-11-21] MEDS: BACLOFEN 10 MG TABLET. PO ×3 (06:51→20:52)
[2017-11-21] MEDS: ALPRAZolam 1 MG TABLET PO ×2 (06:51→23:40)
[2017-11-21] MEDS: HYDROcodone/APAP 10/325 1 TAB TABLET PO ×3 (06:52→20:51)
[2017-11-21] MEDS: FERROUS SULFATE 325 MG TABLET. PO (08:50)
[2017-11-21] MEDS: SERTRALINE 50 MG TABLET. PO (08:50)
[2017-11-21] MEDS: VITAMIN B COMPLEX TABLET. PO (08:50)
[2017-11-21] MEDS: amLODIPine BESYLATE 5 MG TABLET PO (08:51)
[2017-11-21] MEDS: TAMSULOSIN 0.4 MG CAP.ER.24H. PO (08:51)
[2017-11-21] MEDS: VANCOMYCIN 1 GM in IV NORMAL SALINE 250ML 250 ML IV ×2 (08:52→20:50)
[2017-11-21] MEDS ORDERED: C.DIFF MED SCREEN BY RX. MC (09:00)
[2017-11-21 10:03] LABS: ADD MAN DIFF? NO
[2017-11-21 10:08] LABS: BASO % 1 % (0-3); EOS % 8 % (0-3); HEMATOCRIT 22.1 % (39.0-53.0); HEMOGLOBIN 7.7 g/dL (13.0-17.5); LYMPH # 0.2 x10^3/uL (1.0-4.8); LYMPH % 45 % (24-48); MEAN CORPUSCULAR HEMOGLOBIN 31 pg (25-35); MEAN CORPUSCULAR HGB CONC 35 g/dL (31-37); MEAN CORPUSCULAR VOLUME 88 fL (79-100); MONO # 0.1 x10^3/uL (0.0-1.1); MONO % 31 % (0-9); NEUT % 15 % (31-73); RED BLOOD COUNT 2.51 x10^6/uL (4.30-5.70); RED CELL DISTRIBUTION WIDTH 14.9 % (11.5-14.5)
[2017-11-21 10:13] LABS: PLATELET COUNT 15 x10^3/uL (140-400); WHITE BLOOD COUNT 0.3 x10^3/uL (4.0-11.0)
[2017-11-21 10:14] LABS: ANION GAP 5 (6-14); BLOOD UREA NITROGEN 8 mg/dL (8-26); CALCIUM 7.8 mg/dL (8.5-10.1); CARBON DIOXIDE 26 mmol/L (21-32); CHLORIDE 104 mmol/L (98-107); CREATININE 0.7 mg/dL (0.7-1.3); GFR 135.3; GLUCOSE 102 mg/dL (70-99); POTASSIUM 4.2 mmol/L (3.5-5.1); SODIUM 135 mmol/L (136-145)
[2017-11-21 13:42] LABS: % BANDS 8 % (0-9); % BASOS 8 % (0-3); % EOS 7 % (0-5); % LYMPHS 52 % (24-48); % MONOS 3 % (0-10); % SEGS 17 % (35-66)
[2017-11-21 13:43] LABS: % BLASTS 13 % (0-0); ANISOCYTOSIS SLIGHT; NUCLEATED RBC 3; PLT ESTIMATE DECREASED (ADEQUATE); POLYCHROMASIA SLIGHT
[2017-11-21] MEDS ORDERED: CEFEPIME HCL 2 GM in IV DEXTROSE 5% 100ML 100 ML IV (14:00)
[2017-11-21] MEDS: CEFEPIME HCL IV Push 2 GM VIAL. IVP ×2 (15:24→23:42)
[2017-11-21] MEDS: VANCOMYCIN PER PHARMACY MC (15:47)
[2017-11-21 16:57] LABS: IMMEDIATE SPIN CROSSMATCH 1 1
[2017-11-21] MEDS: FAMOTIDINE 20 MG TABLET. PO (20:50)
[2017-11-21] MEDS: ATORVASTATIN CALCIUM 10 MG TABLET. PO (20:52)
[2017-11-21] MEDS: TBO-FILGRASTIM 480 MCG/0.8 ML SYRINGE. SQ (20:58)
[2017-11-21 21:50] LABS: IMMEDIATE SPIN CROSSMATCH 1
[2017-11-21] MEDS: ZOLPIDEM 5 MG TABLET. PO (23:40)
[2017-11-22] MEDS: CEFEPIME HCL IV Push 2 GM VIAL. IVP (05:19)
[2017-11-22] MEDS: BACLOFEN 10 MG TABLET. PO ×3 (05:42→20:47)
[2017-11-22] MEDS: HYDROcodone/APAP 10/325 1 TAB TABLET PO ×3 (05:42→20:48)
[2017-11-22] MEDS: VANCOMYCIN 1 GM in IV NORMAL SALINE 250ML 250 ML IV (09:00)
[2017-11-22 09:03] LABS: VANC TR 10.7 mcg/mL (10.0-20.0)
[2017-11-22 09:20] LABS: ADD MAN DIFF? NO
[2017-11-22] MEDS: SERTRALINE 50 MG TABLET. PO (09:22)
[2017-11-22] MEDS: FAMOTIDINE 20 MG TABLET. PO ×2 (09:22→20:47)
[2017-11-22] MEDS: TAMSULOSIN 0.4 MG CAP.ER.24H. PO (09:23)
[2017-11-22] MEDS: VITAMIN B COMPLEX TABLET. PO (09:23)
[2017-11-22] MEDS: FERROUS SULFATE 325 MG TABLET. PO (09:23)
[2017-11-22] MEDS: amLODIPine BESYLATE 5 MG TABLET PO (09:23)
[2017-11-22 09:27] LABS: BASO % 1 % (0-3); EOS # 0.1 x10^3/uL (0.0-0.7); EOS % 8 % (0-3); HEMATOCRIT 23.9 % (39.0-53.0); HEMOGLOBIN 8.2 g/dL (13.0-17.5); LYMPH # 0.2 x10^3/uL (1.0-4.8); LYMPH % 23 % (24-48); MEAN CORPUSCULAR HEMOGLOBIN 30 pg (25-35); MEAN CORPUSCULAR HGB CONC 34 g/dL (31-37); MEAN CORPUSCULAR VOLUME 88 fL (79-100); MONO # 0.3 x10^3/uL (0.0-1.1); MONO % 38 % (0-9); NEUT # 0.2 x10^3uL (1.8-7.7); NEUT % 30 % (31-73); PLATELET COUNT 45 x10^3/uL (140-400); RED BLOOD COUNT 2.73 x10^6/uL (4.30-5.70); RED CELL DISTRIBUTION WIDTH 15.2 % (11.5-14.5)
[2017-11-22] MEDS: VANCOMYCIN 1.25 GM in IV 1/2 NORMAL SALINE 250 ML IV ×2 (09:30→21:59)
[2017-11-22 09:37] LABS: WHITE BLOOD COUNT 0.7 x10^3/uL (4.0-11.0)
[2017-11-22] MEDS: VANCOMYCIN PER PHARMACY MC (09:39)
[2017-11-22] MEDS: ALPRAZolam 1 MG TABLET PO ×2 (13:01→23:50)
[2017-11-22] MEDS: MEROPENEM 500 MG in IV NORMAL SALINE 50ML 50 ML IV ×2 (14:44→23:50)
[2017-11-22] MEDS: ATORVASTATIN CALCIUM 10 MG TABLET. PO (20:47)
[2017-11-22] MEDS: TBO-FILGRASTIM 480 MCG/0.8 ML SYRINGE. SQ (20:49)
[2017-11-22] MEDS: ACETAMINOPHEN 325 MG TABLET. PO (22:22)
[2017-11-22] MEDS: ZOLPIDEM 5 MG TABLET. PO (23:50)
[2017-11-23] MEDS: MEROPENEM 500 MG in IV NORMAL SALINE 50ML 50 ML IV ×4 (06:12→23:44)
[2017-11-23] MEDS: HYDROcodone/APAP 10/325 1 TAB TABLET PO ×3 (06:13→20:13)
[2017-11-23] MEDS: BACLOFEN 10 MG TABLET. PO ×3 (06:13→20:13)
[2017-11-23 06:29] LABS: ADD MAN DIFF? NO
[2017-11-23 07:32] LABS: BASO # 0.1 x10^3/uL (0.0-0.2); BASO % 2 % (0-3); EOS # 0.2 x10^3/uL (0.0-0.7); EOS % 4 % (0-3); HEMATOCRIT 23.9 % (39.0-53.0); HEMOGLOBIN 8.3 g/dL (13.0-17.5); LYMPH # 0.5 x10^3/uL (1.0-4.8); LYMPH % 13 % (24-48); MEAN CORPUSCULAR HEMOGLOBIN 31 pg (25-35); MEAN CORPUSCULAR HGB CONC 35 g/dL (31-37); MEAN CORPUSCULAR VOLUME 87 fL (79-100); MONO # 2.3 x10^3/uL (0.0-1.1); MONO % 62 % (0-9); NEUT # 0.7 x10^3uL (1.8-7.7); NEUT % 19 % (31-73); PLATELET COUNT 47 x10^3/uL (140-400); RED BLOOD COUNT 2.73 x10^6/uL (4.30-5.70); RED CELL DISTRIBUTION WIDTH 15.5 % (11.5-14.5); WHITE BLOOD COUNT 3.8 x10^3/uL (4.0-11.0)
[2017-11-23] MEDS: VANCOMYCIN PER PHARMACY MC (08:46)
[2017-11-23] MEDS: TAMSULOSIN 0.4 MG CAP.ER.24H. PO (09:18)
[2017-11-23] MEDS: FAMOTIDINE 20 MG TABLET. PO ×2 (09:18→20:13)
[2017-11-23] MEDS: VITAMIN B COMPLEX TABLET. PO (09:19)
[2017-11-23] MEDS: SERTRALINE 50 MG TABLET. PO (09:19)
[2017-11-23] MEDS: amLODIPine BESYLATE 5 MG TABLET PO (09:20)
[2017-11-23] MEDS: FERROUS SULFATE 325 MG TABLET. PO (09:20)
[2017-11-23] MEDS: VANCOMYCIN 1.25 GM in IV 1/2 NORMAL SALINE 250 ML IV ×2 (11:03→22:34)
[2017-11-23] MEDS: DOXYCYCLINE HYCLATE 100 MG TABLET PO ×2 (13:39→20:13)
[2017-11-23] MEDS: ALPRAZolam 1 MG TABLET PO ×2 (13:47→22:31)
[2017-11-23] MEDS: ATORVASTATIN CALCIUM 10 MG TABLET. PO (20:13)
[2017-11-23] MEDS: TBO-FILGRASTIM 480 MCG/0.8 ML SYRINGE. SQ (20:14)
[2017-11-23 21:44] LABS: VANC TR 12.3 mcg/mL (10.0-20.0)
[2017-11-23] MEDS: ZOLPIDEM 5 MG TABLET. PO (22:31)
[2017-11-23] MEDS: guaiFENesin DM 200MG/20MG 10 ML SYRUP PO (23:44)
[2017-11-24] MEDS: VANCOMYCIN PER PHARMACY MC ×2 (01:48→12:48)
[2017-11-24] MEDS: MEROPENEM 500 MG in IV NORMAL SALINE 50ML 50 ML IV ×3 (05:51→18:38)
[2017-11-24] MEDS: FERROUS SULFATE 325 MG TABLET. PO (10:20)
[2017-11-24] MEDS: SERTRALINE 50 MG TABLET. PO (10:21)
[2017-11-24] MEDS: amLODIPine BESYLATE 5 MG TABLET PO (10:21)
[2017-11-24] MEDS: VITAMIN B COMPLEX TABLET. PO (10:21)
[2017-11-24] MEDS: DOXYCYCLINE HYCLATE 100 MG TABLET PO ×2 (10:22→20:48)
[2017-11-24] MEDS: TAMSULOSIN 0.4 MG CAP.ER.24H. PO (10:22)
[2017-11-24] MEDS: FAMOTIDINE 20 MG TABLET. PO ×2 (10:22→20:43)
[2017-11-24] MEDS: BACLOFEN 10 MG TABLET. PO ×2 (10:22→18:37)
[2017-11-24] MEDS: ALPRAZolam 1 MG TABLET PO ×2 (10:22→22:29)
[2017-11-24] MEDS: HYDROcodone/APAP 10/325 1 TAB TABLET PO ×2 (10:23→18:38)
[2017-11-24] MEDS: VANCOMYCIN 1.5 GM in IV 1/2 NORMAL SALINE 500 ML IV ×2 (10:23→22:19)
[2017-11-24 13:54] LABS: ADD MAN DIFF? NO
[2017-11-24 13:58] LABS: BASO % 0 % (0-3); EOS # 0.1 x10^3/uL (0.0-0.7); EOS % 1 % (0-3); HEMATOCRIT 24.7 % (39.0-53.0); HEMOGLOBIN 8.6 g/dL (13.0-17.5); LYMPH # 0.6 x10^3/uL (1.0-4.8); LYMPH % 7 % (24-48); MEAN CORPUSCULAR HEMOGLOBIN 31 pg (25-35); MEAN CORPUSCULAR HGB CONC 35 g/dL (31-37); MEAN CORPUSCULAR VOLUME 88 fL (79-100); MONO # 6.3 x10^3/uL (0.0-1.1); MONO % 76 % (0-9); NEUT # 1.2 x10^3uL (1.8-7.7); NEUT % 15 % (31-73); PLATELET COUNT 39 x10^3/uL (140-400); RED CELL DISTRIBUTION WIDTH 15.6 % (11.5-14.5); WHITE BLOOD COUNT 8.2 x10^3/uL (4.0-11.0)
[2017-11-24 14:41] LABS: % BASOS 6 % (0-3); % BLASTS 54 % (0-0); % EOS 5 % (0-5); % LYMPHS 11 % (24-48); % MONOS 5 % (0-10); % SEGS 19 % (35-66); NUCLEATED RBC 2
[2017-11-24 14:47] LABS: ANISOCYTOSIS SLIGHT; PLT ESTIMATE DECREASED (ADEQUATE); POLYCHROMASIA SLIGHT
[2017-11-24] MEDS: MICAFUNGIN 100 MG in IV DEXTROSE 5% 100ML 100 ML IV (14:53)
[2017-11-24] MEDS: ATORVASTATIN CALCIUM 10 MG TABLET. PO (20:43)
[2017-11-24] MEDS: TBO-FILGRASTIM 480 MCG/0.8 ML SYRINGE. SQ (20:44)
[2017-11-24] MEDS: guaiFENesin DM 200MG/20MG 10 ML SYRUP PO (22:21)
[2017-11-24] MEDS: ZOLPIDEM 5 MG TABLET. PO (22:29)
[2017-11-25] MEDS: MEROPENEM 500 MG in IV NORMAL SALINE 50ML 50 ML IV ×4 (01:02→18:28)
[2017-11-25 06:23] LABS: ADD MAN DIFF? NO
[2017-11-25 06:29] LABS: BASO # 0.1 x10^3/uL (0.0-0.2); BASO % 1 % (0-3); EOS # 0.2 x10^3/uL (0.0-0.7); EOS % 2 % (0-3); HEMATOCRIT 23.4 % (39.0-53.0); LYMPH # 1.1 x10^3/uL (1.0-4.8); LYMPH % 9 % (24-48); MEAN CORPUSCULAR HEMOGLOBIN 30 pg (25-35); MEAN CORPUSCULAR HGB CONC 34 g/dL (31-37); MEAN CORPUSCULAR VOLUME 88 fL (79-100); MONO # 8.6 x10^3/uL (0.0-1.1); MONO % 74 % (0-9); NEUT # 1.6 x10^3uL (1.8-7.7); NEUT % 14 % (31-73); PLATELET COUNT 33 x10^3/uL (140-400); RED BLOOD COUNT 2.66 x10^6/uL (4.30-5.70); RED CELL DISTRIBUTION WIDTH 15.7 % (11.5-14.5); WHITE BLOOD COUNT 11.6 x10^3/uL (4.0-11.0)
[2017-11-25 06:37] LABS: ANION GAP 6 (6-14); BLOOD UREA NITROGEN 10 mg/dL (8-26); CALCIUM 7.9 mg/dL (8.5-10.1); CARBON DIOXIDE 26 mmol/L (21-32); CHLORIDE 100 mmol/L (98-107); CREATININE 0.9 mg/dL (0.7-1.3); GFR 101.2; GLUCOSE 116 mg/dL (70-99); POTASSIUM 3.5 mmol/L (3.5-5.1); SODIUM 132 mmol/L (136-145)
[2017-11-25 07:35] LABS: EBNA IGG >600.0 U/mL (0.0-17.9)
[2017-11-25] MEDS: DOXYCYCLINE HYCLATE 100 MG TABLET PO ×2 (08:34→20:40)
[2017-11-25] MEDS: VITAMIN B COMPLEX TABLET. PO (08:34)
[2017-11-25] MEDS: SERTRALINE 50 MG TABLET. PO (08:34)
[2017-11-25] MEDS: FAMOTIDINE 20 MG TABLET. PO ×2 (08:34→20:41)
[2017-11-25] MEDS: TAMSULOSIN 0.4 MG CAP.ER.24H. PO (08:35)
[2017-11-25] MEDS: FERROUS SULFATE 325 MG TABLET. PO (08:35)
[2017-11-25] MEDS: HYDROcodone/APAP 10/325 1 TAB TABLET PO ×2 (08:36→18:47)
[2017-11-25] MEDS: BACLOFEN 10 MG TABLET. PO (09:35)
[2017-11-25] MEDS: amLODIPine BESYLATE 5 MG TABLET PO (09:35)
[2017-11-25] MEDS: VANCOMYCIN 1.5 GM in IV 1/2 NORMAL SALINE 500 ML IV (10:16)
[2017-11-25] MEDS: VANCOMYCIN PER PHARMACY MC ×3 (14:37→23:00)
[2017-11-25] MEDS: guaiFENesin DM 200MG/20MG 10 ML SYRUP PO (18:28)
[2017-11-25] MEDS: MICAFUNGIN 100 MG in IV DEXTROSE 5% 100ML 100 ML IV (19:37)
[2017-11-25] MEDS: LACTOBACILLUS RHAMNOSUS GG 1 CAPSULE. PO (20:40)
[2017-11-25] MEDS: ATORVASTATIN CALCIUM 10 MG TABLET. PO (20:41)
[2017-11-25 21:30] LABS: VANC TR 23.3 mcg/mL (10.0-20.0)
[2017-11-25] MEDS: ZOLPIDEM 5 MG TABLET. PO (21:50)
[2017-11-25] MEDS: ALPRAZolam 1 MG TABLET PO (21:50)
[2017-11-26] MEDS: MEROPENEM 500 MG in IV NORMAL SALINE 50ML 50 ML IV ×4 (00:08→18:35)
[2017-11-26] MEDS: BACLOFEN 10 MG TABLET. PO ×3 (06:24→21:09)
[2017-11-26] MEDS: HYDROcodone/APAP 10/325 1 TAB TABLET PO ×3 (06:24→21:10)
[2017-11-26 06:29] LABS: ADD MAN DIFF? NO
[2017-11-26 06:36] LABS: BASO % 0 % (0-3); EOS # 0.1 x10^3/uL (0.0-0.7); EOS % 1 % (0-3); HEMATOCRIT 24.8 % (39.0-53.0); HEMOGLOBIN 8.5 g/dL (13.0-17.5); LYMPH % 9 % (24-48); MEAN CORPUSCULAR HEMOGLOBIN 30 pg (25-35); MEAN CORPUSCULAR HGB CONC 34 g/dL (31-37); MEAN CORPUSCULAR VOLUME 87 fL (79-100); MONO # 9.8 x10^3/uL (0.0-1.1); MONO % 82 % (0-9); NEUT # 1.1 x10^3uL (1.8-7.7); NEUT % 9 % (31-73); PLATELET COUNT 36 x10^3/uL (140-400); RED BLOOD COUNT 2.84 x10^6/uL (4.30-5.70); RED CELL DISTRIBUTION WIDTH 15.6 % (11.5-14.5)
[2017-11-26] MEDS: VANCOMYCIN PER PHARMACY MC (08:36)
[2017-11-26] MEDS: amLODIPine BESYLATE 5 MG TABLET PO (09:08)
[2017-11-26] MEDS: FERROUS SULFATE 325 MG TABLET. PO (09:09)
[2017-11-26] MEDS: VITAMIN B COMPLEX TABLET. PO (09:09)
[2017-11-26] MEDS: DOXYCYCLINE HYCLATE 100 MG TABLET PO ×2 (09:09→21:09)
[2017-11-26] MEDS: SERTRALINE 50 MG TABLET. PO (09:09)
[2017-11-26] MEDS: FAMOTIDINE 20 MG TABLET. PO ×2 (09:09→21:09)
[2017-11-26] MEDS: TAMSULOSIN 0.4 MG CAP.ER.24H. PO (09:09)
[2017-11-26] MEDS: LACTOBACILLUS RHAMNOSUS GG 1 CAPSULE. PO ×2 (09:09→21:09)
[2017-11-26] MEDS: VANCOMYCIN 1.25 GM in IV NORMAL SALINE 250ML 250 ML IV ×3 (09:10→21:09)
[2017-11-26 11:13] LABS: BODY FLUID CULT Not Indicated (.); ORGANISM ID Not indicated. (.); SPECIMEN SOURCE Urine (.); STREP PNEUMO ANTIGEN Negative (Negative)
[2017-11-26 11:13] LABS: LEGIONELLA AG UR Negative (Negative)
[2017-11-26] MEDS: ALPRAZolam 1 MG TABLET PO (12:40)
[2017-11-26] MEDS: MICAFUNGIN 100 MG in IV DEXTROSE 5% 100ML 100 ML IV (13:41)
[2017-11-26] MEDS: ATORVASTATIN CALCIUM 10 MG TABLET. PO (21:09)
[2017-11-27] MEDS: MEROPENEM 500 MG in IV NORMAL SALINE 50ML 50 ML IV ×5 (05:54→23:52)
[2017-11-27] MEDS: guaiFENesin DM 200MG/20MG 10 ML SYRUP PO ×3 (08:32→23:59)
[2017-11-27] MEDS: LACTOBACILLUS RHAMNOSUS GG 1 CAPSULE. PO ×2 (08:32→20:33)
[2017-11-27] MEDS: VITAMIN B COMPLEX TABLET. PO (08:32)
[2017-11-27] MEDS: FAMOTIDINE 20 MG TABLET. PO ×2 (08:33→20:33)
[2017-11-27] MEDS: DOXYCYCLINE HYCLATE 100 MG TABLET PO ×2 (08:33→20:33)
[2017-11-27] MEDS: amLODIPine BESYLATE 5 MG TABLET PO (08:33)
[2017-11-27] MEDS: BACLOFEN 10 MG TABLET. PO ×2 (08:33→23:49)
[2017-11-27] MEDS: TAMSULOSIN 0.4 MG CAP.ER.24H. PO (08:33)
[2017-11-27] MEDS: SERTRALINE 50 MG TABLET. PO (08:34)
[2017-11-27] MEDS: FERROUS SULFATE 325 MG TABLET. PO (08:34)
[2017-11-27] MEDS: HYDROcodone/APAP 10/325 1 TAB TABLET PO ×2 (08:34→23:49)
[2017-11-27] MEDS: VANCOMYCIN 1.25 GM in IV NORMAL SALINE 250ML 250 ML IV ×2 (08:50→20:34)
[2017-11-27] MEDS: MICAFUNGIN 100 MG in IV DEXTROSE 5% 100ML 100 ML IV (12:58)
[2017-11-27 14:56] LABS: ANION GAP 5 (6-14); BLOOD UREA NITROGEN 17 mg/dL (8-26); BUN/CREATININE RATIO 17 (6-20); CARBON DIOXIDE 27 mmol/L (21-32); CHLORIDE 104 mmol/L (98-107); GFR 89.6; GLUCOSE 115 mg/dL (70-99); POTASSIUM 3.7 mmol/L (3.5-5.1); SODIUM 136 mmol/L (136-145)
[2017-11-27 15:01] LABS: ALBUMIN 1.9 g/dL (3.4-5.0); ALBUMIN/GLOBULIN RATIO 0.4 (1.0-1.7); ALK PHOS 71 U/L (46-116); ALT (SGPT) 38 U/L (16-63); AST (SGOT) 54 U/L (15-37); TOTAL BILIRUBIN 0.5 mg/dL (0.2-1.0); TOTAL PROTEIN 6.2 g/dL (6.4-8.2)
[2017-11-27 15:07] LABS: BASO % 1 % (0-3); EOS # 0.1 x10^3/uL (0.0-0.7); EOS % 3 % (0-3); HEMATOCRIT 28.1 % (39.0-53.0); HEMOGLOBIN 9.7 g/dL (13.0-17.5); LYMPH # 0.4 x10^3/uL (1.0-4.8); LYMPH % 9 % (24-48); MEAN CORPUSCULAR HEMOGLOBIN 30 pg (25-35); MEAN CORPUSCULAR HGB CONC 35 g/dL (31-37); MEAN CORPUSCULAR VOLUME 87 fL (79-100); MONO # 2.8 x10^3/uL (0.0-1.1); MONO % 69 % (0-9); NEUT # 0.8 x10^3uL (1.8-7.7); NEUT % 19 % (31-73); RED BLOOD COUNT 3.23 x10^6/uL (4.30-5.70); RED CELL DISTRIBUTION WIDTH 15.7 % (11.5-14.5); WHITE BLOOD COUNT 4.1 x10^3/uL (4.0-11.0)
[2017-11-27 15:09] LABS: ADD MAN DIFF? YES; PLATELET COUNT 22 x10^3/uL (140-400)
[2017-11-27] MEDS: SODIUM CHLORIDE 0.65% NASAL SPRAY 45ML BOTTLE. NS (15:23)
[2017-11-27] MEDS: VANCOMYCIN PER PHARMACY MC (15:36)
[2017-11-27 18:50] LABS: % BANDS 1 % (0-9); % BASOS 3 % (0-3); % BLASTS 54 % (0-0); % EOS 4 % (0-5); % LYMPHS 11 % (24-48); % METAS 1 % (0-0); % MONOS 1 % (0-10); % MYELOS 1 % (0-0); % PROS 1 % (0-0); % SEGS 23 % (35-66); NUCLEATED RBC 5; PLT ESTIMATE DECREASED (ADEQUATE)
[2017-11-27] MEDS: ATORVASTATIN CALCIUM 10 MG TABLET. PO (20:33)
[2017-11-27] MEDS: ZOLPIDEM 5 MG TABLET. PO (23:49)
[2017-11-27] MEDS: ALPRAZolam 1 MG TABLET PO (23:49)
[2017-11-28] MEDS: MEROPENEM 500 MG in IV NORMAL SALINE 50ML 50 ML IV ×3 (06:03→17:44)
[2017-11-28] MEDS: guaiFENesin DM 200MG/20MG 10 ML SYRUP PO ×2 (06:07→16:04)
[2017-11-28] MEDS: BACLOFEN 10 MG TABLET. PO ×2 (06:07→16:04)
[2017-11-28] MEDS: HYDROcodone/APAP 10/325 1 TAB TABLET PO ×3 (06:07→22:05)
[2017-11-28] MEDS: TAMSULOSIN 0.4 MG CAP.ER.24H. PO (08:10)
[2017-11-28] MEDS: VITAMIN B COMPLEX TABLET. PO (08:10)
[2017-11-28] MEDS: FERROUS SULFATE 325 MG TABLET. PO (08:10)
[2017-11-28] MEDS: FAMOTIDINE 20 MG TABLET. PO ×2 (08:10→22:04)
[2017-11-28] MEDS: SERTRALINE 50 MG TABLET. PO (08:11)
[2017-11-28] MEDS: LACTOBACILLUS RHAMNOSUS GG 1 CAPSULE. PO ×2 (08:11→22:04)
[2017-11-28] MEDS: DOXYCYCLINE HYCLATE 100 MG TABLET PO ×2 (08:11→22:04)
[2017-11-28] MEDS: amLODIPine BESYLATE 5 MG TABLET PO (08:15)
[2017-11-28] MEDS: VANCOMYCIN PER PHARMACY MC (13:34)
[2017-11-28 14:31] LABS: ADD MAN DIFF? NO
[2017-11-28 14:54] LABS: BASO % 0 % (0-3); EOS # 0.1 x10^3/uL (0.0-0.7); EOS % 4 % (0-3); HEMATOCRIT 21.9 % (39.0-53.0); HEMOGLOBIN 7.5 g/dL (13.0-17.5); LYMPH # 0.3 x10^3/uL (1.0-4.8); LYMPH % 11 % (24-48); MEAN CORPUSCULAR HEMOGLOBIN 30 pg (25-35); MEAN CORPUSCULAR HGB CONC 34 g/dL (31-37); MEAN CORPUSCULAR VOLUME 87 fL (79-100); MONO # 1.7 x10^3/uL (0.0-1.1); MONO % 65 % (0-9); NEUT # 0.5 x10^3uL (1.8-7.7); NEUT % 20 % (31-73); RED BLOOD COUNT 2.52 x10^6/uL (4.30-5.70); RED CELL DISTRIBUTION WIDTH 15.6 % (11.5-14.5); WHITE BLOOD COUNT 2.6 x10^3/uL (4.0-11.0)
[2017-11-28 14:56] LABS: PLATELET COUNT 18 x10^3/uL (140-400)
[2017-11-28 15:07] LABS: GFR 101.2
[2017-11-28 15:07] LABS: CREATININE 0.9 mg/dL (0.7-1.3)
[2017-11-28] MEDS: ALTEPLASE 2 MG VIAL INT CAT (15:41)
[2017-11-28] MEDS: MICAFUNGIN 100 MG in IV DEXTROSE 5% 100ML 100 ML IV (17:34)
[2017-11-28] MEDS: VANCOMYCIN 1.25 GM in IV NORMAL SALINE 250ML 250 ML IV (19:09)
[2017-11-28 22:00] LABS: IMMEDIATE SPIN CROSSMATCH 1 1
[2017-11-28] MEDS: ATORVASTATIN CALCIUM 10 MG TABLET. PO (22:04)
[2017-11-28 23:00] LABS: IMMEDIATE SPIN CROSSMATCH 1
[2017-11-29] MEDS: ALPRAZolam 1 MG TABLET PO ×2 (00:06→23:44)
[2017-11-29] MEDS: ZOLPIDEM 5 MG TABLET. PO ×2 (00:06→23:44)
[2017-11-29] MEDS: guaiFENesin DM 200MG/20MG 10 ML SYRUP PO ×3 (00:06→13:49)
[2017-11-29 00:15] LABS: RVP ADENOVIRUS Negative (Negative); RVP INFLUENZA A Negative (Negative); RVP INFLUENZA B Negative (Negative); RVP METAPNEUMOVIRUS Negative (Negative); RVP PARAINFLUENZA 1 Negative (Negative); RVP PARAINFLUENZA 2 Negative (Negative); RVP PARAINFLUENZA 3 Negative (Negative); RVP RHINOVIRUS Negative (Negative); RVP RSV A Negative (Negative); RVP RSV B Negative (Negative)
[2017-11-29] MEDS: MEROPENEM 500 MG in IV NORMAL SALINE 50ML 50 ML IV ×5 (01:07→23:44)
[2017-11-29] MEDS: HYDROcodone/APAP 10/325 1 TAB TABLET PO ×3 (06:01→21:05)
[2017-11-29] MEDS: VANCOMYCIN 1.25 GM in IV NORMAL SALINE 250ML 250 ML IV (06:47)
[2017-11-29] MEDS: TAMSULOSIN 0.4 MG CAP.ER.24H. PO (07:47)
[2017-11-29] MEDS: FERROUS SULFATE 325 MG TABLET. PO (07:47)
[2017-11-29] MEDS: FAMOTIDINE 20 MG TABLET. PO ×2 (07:47→21:04)
[2017-11-29] MEDS: DOXYCYCLINE HYCLATE 100 MG TABLET PO ×2 (07:47→21:04)
[2017-11-29] MEDS: SERTRALINE 50 MG TABLET. PO (07:48)
[2017-11-29] MEDS: LACTOBACILLUS RHAMNOSUS GG 1 CAPSULE. PO ×2 (07:48→21:04)
[2017-11-29] MEDS: VITAMIN B COMPLEX TABLET. PO (07:48)
[2017-11-29] MEDS: amLODIPine BESYLATE 5 MG TABLET PO (07:50)
[2017-11-29 09:15] LABS: ADD MAN DIFF? NO
[2017-11-29 09:22] LABS: BASO % 1 % (0-3); EOS # 0.1 x10^3/uL (0.0-0.7); EOS % 5 % (0-3); HEMATOCRIT 27.9 % (39.0-53.0); HEMOGLOBIN 9.5 g/dL (13.0-17.5); LYMPH # 0.4 x10^3/uL (1.0-4.8); LYMPH % 19 % (24-48); MEAN CORPUSCULAR HEMOGLOBIN 30 pg (25-35); MEAN CORPUSCULAR HGB CONC 34 g/dL (31-37); MEAN CORPUSCULAR VOLUME 87 fL (79-100); MONO # 1.1 x10^3/uL (0.0-1.1); MONO % 53 % (0-9); NEUT # 0.5 x10^3uL (1.8-7.7); NEUT % 22 % (31-73); PLATELET COUNT 48 x10^3/uL (140-400); RED BLOOD COUNT 3.21 x10^6/uL (4.30-5.70); RED CELL DISTRIBUTION WIDTH 14.8 % (11.5-14.5); WHITE BLOOD COUNT 2.1 x10^3/uL (4.0-11.0)
[2017-11-29] MEDS: VANCOMYCIN PER PHARMACY MC (12:14)
[2017-11-29] MEDS: BACLOFEN 10 MG TABLET. PO ×2 (13:49→21:04)
[2017-11-29] MEDS: MICAFUNGIN 100 MG in IV DEXTROSE 5% 100ML 100 ML IV (13:49)
[2017-11-29 16:17] LABS: HISTOPLASMA AG URINE <0.5 (<0.5 ng/mL)
[2017-11-29] MEDS: ATORVASTATIN CALCIUM 10 MG TABLET. PO (21:04)
[2017-11-29] MEDS: TBO-FILGRASTIM 480 MCG/0.8 ML SYRINGE. SQ (21:08)
[2017-11-30] MEDS: guaiFENesin DM 200MG/20MG 10 ML SYRUP PO ×4 (03:18→23:02)
[2017-11-30] MEDS: MEROPENEM 500 MG in IV NORMAL SALINE 50ML 50 ML IV ×3 (05:49→18:21)
[2017-11-30 06:28] LABS: ADD MAN DIFF? NO
[2017-11-30] MEDS: BACLOFEN 10 MG TABLET. PO ×3 (06:52→23:01)
[2017-11-30] MEDS: HYDROcodone/APAP 10/325 1 TAB TABLET PO ×3 (06:52→23:01)
[2017-11-30 06:59] LABS: ALBUMIN 2.1 g/dL (3.4-5.0); ALBUMIN/GLOBULIN RATIO 0.5 (1.0-1.7); ALK PHOS 64 U/L (46-116); ALT (SGPT) 31 U/L (16-63); ANION GAP 8 (6-14); AST (SGOT) 26 U/L (15-37); BLOOD UREA NITROGEN 11 mg/dL (8-26); BUN/CREATININE RATIO 11 (6-20); CARBON DIOXIDE 26 mmol/L (21-32); CHLORIDE 104 mmol/L (98-107); GFR 89.6; GLUCOSE 90 mg/dL (70-99); SODIUM 138 mmol/L (136-145); TOTAL BILIRUBIN 0.9 mg/dL (0.2-1.0); TOTAL PROTEIN 6.5 g/dL (6.4-8.2)
[2017-11-30 07:08] LABS: BASO % 1 % (0-3); EOS # 0.2 x10^3/uL (0.0-0.7); EOS % 7 % (0-3); HEMATOCRIT 24.7 % (39.0-53.0); HEMOGLOBIN 8.6 g/dL (13.0-17.5); LYMPH # 0.4 x10^3/uL (1.0-4.8); LYMPH % 15 % (24-48); MEAN CORPUSCULAR HEMOGLOBIN 30 pg (25-35); MEAN CORPUSCULAR HGB CONC 35 g/dL (31-37); MEAN CORPUSCULAR VOLUME 86 fL (79-100); MONO # 0.7 x10^3/uL (0.0-1.1); MONO % 30 % (0-9); NEUT # 1.1 x10^3uL (1.8-7.7); NEUT % 47 % (31-73); PLATELET COUNT 31 x10^3/uL (140-400); RED BLOOD COUNT 2.87 x10^6/uL (4.30-5.70); WHITE BLOOD COUNT 2.4 x10^3/uL (4.0-11.0)
[2017-11-30] MEDS: FAMOTIDINE 20 MG TABLET. PO ×2 (08:47→20:27)
[2017-11-30] MEDS: DOXYCYCLINE HYCLATE 100 MG TABLET PO ×2 (08:47→20:27)
[2017-11-30] MEDS: VITAMIN B COMPLEX TABLET. PO (08:47)
[2017-11-30] MEDS: LACTOBACILLUS RHAMNOSUS GG 1 CAPSULE. PO ×2 (08:47→20:27)
[2017-11-30] MEDS: amLODIPine BESYLATE 5 MG TABLET PO (08:48)
[2017-11-30] MEDS: TAMSULOSIN 0.4 MG CAP.ER.24H. PO (08:48)
[2017-11-30] MEDS: SERTRALINE 50 MG TABLET. PO (08:48)
[2017-11-30] MEDS: FERROUS SULFATE 325 MG TABLET. PO (08:48)
[2017-11-30] MEDS: ALPRAZolam 1 MG TABLET PO (08:53)
[2017-11-30] MEDS: ALTEPLASE 2 MG VIAL INT CAT (10:36)
[2017-11-30] MEDS: MICAFUNGIN 100 MG in IV NORMAL SALINE 100ML 100 ML IV (17:14)
[2017-11-30] MEDS: ATORVASTATIN CALCIUM 10 MG TABLET. PO (20:27)
[2017-11-30] MEDS: TBO-FILGRASTIM 480 MCG/0.8 ML SYRINGE. SQ (20:36)
[2017-12-01] MEDS: ALPRAZolam 1 MG TABLET PO (00:07)
[2017-12-01] MEDS: ZOLPIDEM 5 MG TABLET. PO (00:07)
[2017-12-01] MEDS: MEROPENEM 500 MG in IV NORMAL SALINE 50ML 50 ML IV ×5 (00:46→23:02)
[2017-12-01] MEDS: guaiFENesin DM 200MG/20MG 10 ML SYRUP PO ×2 (09:08→17:00)
[2017-12-01] MEDS: FAMOTIDINE 20 MG TABLET. PO ×2 (09:08→20:06)
[2017-12-01] MEDS: DOXYCYCLINE HYCLATE 100 MG TABLET PO ×2 (09:08→20:06)
[2017-12-01] MEDS: FERROUS SULFATE 325 MG TABLET. PO (09:08)
[2017-12-01] MEDS: LACTOBACILLUS RHAMNOSUS GG 1 CAPSULE. PO ×2 (09:09→20:06)
[2017-12-01] MEDS: TAMSULOSIN 0.4 MG CAP.ER.24H. PO (09:09)
[2017-12-01] MEDS: VITAMIN B COMPLEX TABLET. PO (09:09)
[2017-12-01] MEDS: SERTRALINE 50 MG TABLET. PO (09:09)
[2017-12-01] MEDS: amLODIPine BESYLATE 5 MG TABLET PO (09:09)
[2017-12-01] MEDS: BACLOFEN 10 MG TABLET. PO ×2 (10:31→20:06)
[2017-12-01] MEDS: HYDROcodone/APAP 10/325 1 TAB TABLET PO ×2 (10:32→20:06)
[2017-12-01 10:43] LABS: ADD MAN DIFF? NO
[2017-12-01 10:50] LABS: BASO # 0.1 x10^3/uL (0.0-0.2); BASO % 1 % (0-3); EOS # 0.1 x10^3/uL (0.0-0.7); EOS % 3 % (0-3); HEMATOCRIT 27.9 % (39.0-53.0); HEMOGLOBIN 9.6 g/dL (13.0-17.5); LYMPH # 0.5 x10^3/uL (1.0-4.8); LYMPH % 11 % (24-48); MEAN CORPUSCULAR HEMOGLOBIN 30 pg (25-35); MEAN CORPUSCULAR HGB CONC 35 g/dL (31-37); MEAN CORPUSCULAR VOLUME 86 fL (79-100); MONO # 2.8 x10^3/uL (0.0-1.1); MONO % 58 % (0-9); NEUT # 1.3 x10^3uL (1.8-7.7); NEUT % 27 % (31-73); PLATELET COUNT 31 x10^3/uL (140-400); RED BLOOD COUNT 3.23 x10^6/uL (4.30-5.70); RED CELL DISTRIBUTION WIDTH 14.6 % (11.5-14.5); WHITE BLOOD COUNT 4.9 x10^3/uL (4.0-11.0)
[2017-12-01] MEDS: MICAFUNGIN 100 MG in IV NORMAL SALINE 100ML 100 ML IV (17:00)
[2017-12-01] MEDS: TBO-FILGRASTIM 480 MCG/0.8 ML SYRINGE. SQ (19:53)
[2017-12-01] MEDS: ATORVASTATIN CALCIUM 10 MG TABLET. PO (20:06)
[2017-12-02] MEDS: guaiFENesin DM 200MG/20MG 10 ML SYRUP PO ×3 (00:05→15:36)
[2017-12-02] MEDS: ZOLPIDEM 5 MG TABLET. PO (00:05)
[2017-12-02] MEDS: ALPRAZolam 1 MG TABLET PO (00:05)
[2017-12-02] MEDS: MEROPENEM 500 MG in IV NORMAL SALINE 50ML 50 ML IV ×4 (05:38→23:16)
[2017-12-02 05:50] LABS: ADD MAN DIFF? NO
[2017-12-02 06:14] LABS: BASO % 1 % (0-3); EOS # 0.1 x10^3/uL (0.0-0.7); EOS % 3 % (0-3); HEMATOCRIT 21.9 % (39.0-53.0); HEMOGLOBIN 7.6 g/dL (13.0-17.5); LYMPH # 0.4 x10^3/uL (1.0-4.8); LYMPH % 12 % (24-48); MEAN CORPUSCULAR HEMOGLOBIN 30 pg (25-35); MEAN CORPUSCULAR HGB CONC 35 g/dL (31-37); MEAN CORPUSCULAR VOLUME 86 fL (79-100); MONO # 2.3 x10^3/uL (0.0-1.1); MONO % 59 % (0-9); NEUT % 25 % (31-73); RED BLOOD COUNT 2.54 x10^6/uL (4.30-5.70); RED CELL DISTRIBUTION WIDTH 15.3 % (11.5-14.5); WHITE BLOOD COUNT 3.9 x10^3/uL (4.0-11.0)
[2017-12-02 06:23] LABS: PLATELET COUNT 22 x10^3/uL (140-400)
[2017-12-02] MEDS: amLODIPine BESYLATE 5 MG TABLET PO (08:37)
[2017-12-02] MEDS: FAMOTIDINE 20 MG TABLET. PO ×2 (08:37→20:06)
[2017-12-02] MEDS: FERROUS SULFATE 325 MG TABLET. PO (08:37)
[2017-12-02] MEDS: BACLOFEN 10 MG TABLET. PO ×2 (08:37→15:37)
[2017-12-02] MEDS: TAMSULOSIN 0.4 MG CAP.ER.24H. PO (08:38)
[2017-12-02] MEDS: SERTRALINE 50 MG TABLET. PO (08:38)
[2017-12-02] MEDS: DOXYCYCLINE HYCLATE 100 MG TABLET PO ×2 (08:38→20:06)
[2017-12-02] MEDS: VITAMIN B COMPLEX TABLET. PO (08:38)
[2017-12-02] MEDS: HYDROcodone/APAP 10/325 1 TAB TABLET PO ×2 (08:56→15:37)
[2017-12-02 12:19] LABS: IMMEDIATE SPIN CROSSMATCH 1
[2017-12-02] MEDS: MICAFUNGIN 100 MG in IV NORMAL SALINE 100ML 100 ML IV (16:42)
[2017-12-02] MEDS: TBO-FILGRASTIM 480 MCG/0.8 ML SYRINGE. SQ (20:02)
[2017-12-02] MEDS: ATORVASTATIN CALCIUM 10 MG TABLET. PO (20:06)
[2017-12-03] MEDS: guaiFENesin DM 200MG/20MG 10 ML SYRUP PO ×2 (00:09→06:02)
[2017-12-03] MEDS: ALPRAZolam 1 MG TABLET PO ×2 (00:09→14:04)
[2017-12-03] MEDS: ZOLPIDEM 5 MG TABLET. PO (00:09)
[2017-12-03] MEDS: MEROPENEM 500 MG in IV NORMAL SALINE 50ML 50 ML IV ×2 (05:52→13:56)
[2017-12-03] MEDS: BACLOFEN 10 MG TABLET. PO (06:02)
[2017-12-03] MEDS: HYDROcodone/APAP 10/325 1 TAB TABLET PO ×2 (06:02→14:04)
[2017-12-03 06:46] LABS: BASO % 1 % (0-3); EOS # 0.1 x10^3/uL (0.0-0.7); EOS % 4 % (0-3); HEMATOCRIT 23.2 % (39.0-53.0); HEMOGLOBIN 7.9 g/dL (13.0-17.5); LYMPH # 0.3 x10^3/uL (1.0-4.8); LYMPH % 15 % (24-48); MEAN CORPUSCULAR HEMOGLOBIN 29 pg (25-35); MEAN CORPUSCULAR HGB CONC 34 g/dL (31-37); MEAN CORPUSCULAR VOLUME 86 fL (79-100); MONO % 58 % (0-9); NEUT # 0.4 x10^3uL (1.8-7.7); NEUT % 21 % (31-73); RED CELL DISTRIBUTION WIDTH 14.4 % (11.5-14.5)
[2017-12-03 06:51] LABS: ADD MAN DIFF? YES; PLATELET COUNT 14 x10^3/uL (140-400); WHITE BLOOD COUNT 1.7 x10^3/uL (4.0-11.0)
[2017-12-03 06:53] LABS: ANION GAP 9 (6-14); BLOOD UREA NITROGEN 14 mg/dL (8-26); CALCIUM 8.1 mg/dL (8.5-10.1); CARBON DIOXIDE 26 mmol/L (21-32); CHLORIDE 102 mmol/L (98-107); CREATININE 1.1 mg/dL (0.7-1.3); GFR 80.3; GLUCOSE 110 mg/dL (70-99); POTASSIUM 4.1 mmol/L (3.5-5.1); SODIUM 137 mmol/L (136-145)
[2017-12-03 08:01] LABS: % BANDS 2 % (0-9); % BASOS 1 % (0-3); % BLASTS 21 % (0-0); % EOS 7 % (0-5); % LYMPHS 19 % (24-48); % MONOS 16 % (0-10); % SEGS 34 % (35-66); NUCLEATED RBC 9; PLT ESTIMATE DECREASED (ADEQUATE)
[2017-12-03 08:03] LABS: POLYCHROMASIA SLIGHT
[2017-12-03 08:05] LABS: TOXIC GRANULATION SLIGHT
[2017-12-03] MEDS: SERTRALINE 50 MG TABLET. PO (08:32)
[2017-12-03] MEDS: FAMOTIDINE 20 MG TABLET. PO (08:32)
[2017-12-03] MEDS: TAMSULOSIN 0.4 MG CAP.ER.24H. PO (08:33)
[2017-12-03] MEDS: FERROUS SULFATE 325 MG TABLET. PO (08:33)
[2017-12-03] MEDS: amLODIPine BESYLATE 5 MG TABLET PO (08:33)
[2017-12-03] MEDS: VITAMIN B COMPLEX TABLET. PO (08:33)
[2017-12-03] MEDS: DOXYCYCLINE HYCLATE 100 MG TABLET PO (08:34)
[2017-12-03] MEDS: LIDO:MAALOX:BENADRYL 1:1:1 180 ML BOTTLE. PO ×3 (09:37→18:08)
[2017-12-03 11:05] LABS: IMMEDIATE SPIN CROSSMATCH 1 1
[2017-12-03 15:15] LABS: C DIFF BY PCR Negative (Negative)
[2017-12-03] MEDS: PANTOPRAZOLE 40 MG TABLET.DR. PO (16:34)
[2017-12-03] MEDS: VANCOMYCIN 125 MG/2.5 ML ORAL SOLUTION. PO ×2 (16:35→20:24)
[2017-12-03] MEDS: MICAFUNGIN 100 MG in IV NORMAL SALINE 100ML 100 ML IV (16:35)
[2017-12-03] MEDS: CEFEPIME HCL IV Push 1 GM VIAL. IVP ×3 (17:59→21:43)
[2017-12-03] MEDS: diphenhydrAMINE HCL 25 MG CAPSULE PO (18:08)
[2017-12-03] MEDS: ATORVASTATIN CALCIUM 10 MG TABLET. PO (20:20)
[2017-12-03] MEDS: TBO-FILGRASTIM 480 MCG/0.8 ML SYRINGE. SQ ×2 (20:24→20:29)
[2017-12-03] MEDS ORDERED: CEFEPIME HCL 1 GM in IV DEXTROSE 5% 50 ML IV (22:00)
[2017-12-04] MEDS: ZOLPIDEM 5 MG TABLET. PO ×2 (00:13→23:21)
[2017-12-04] MEDS: guaiFENesin DM 200MG/20MG 10 ML SYRUP PO ×3 (00:13→23:21)
[2017-12-04] MEDS: ALPRAZolam 1 MG TABLET PO ×3 (00:13→23:21)
[2017-12-04] MEDS: CEFEPIME HCL IV Push 1 GM VIAL. IVP ×3 (06:28→21:16)
[2017-12-04 06:42] LABS: ADD MAN DIFF? NO
[2017-12-04 06:44] LABS: BASO % 2 % (0-3); EOS # 0.1 x10^3/uL (0.0-0.7); EOS % 7 % (0-3); HEMATOCRIT 24.9 % (39.0-53.0); HEMOGLOBIN 8.5 g/dL (13.0-17.5); LYMPH # 0.3 x10^3/uL (1.0-4.8); LYMPH % 26 % (24-48); MEAN CORPUSCULAR HEMOGLOBIN 29 pg (25-35); MEAN CORPUSCULAR HGB CONC 34 g/dL (31-37); MEAN CORPUSCULAR VOLUME 86 fL (79-100); MONO # 0.4 x10^3/uL (0.0-1.1); MONO % 36 % (0-9); NEUT # 0.3 x10^3uL (1.8-7.7); NEUT % 30 % (31-73); PLATELET COUNT 30 x10^3/uL (140-400); RED BLOOD COUNT 2.89 x10^6/uL (4.30-5.70); RED CELL DISTRIBUTION WIDTH 14.6 % (11.5-14.5)
[2017-12-04] MEDS: TAMSULOSIN 0.4 MG CAP.ER.24H. PO (08:02)
[2017-12-04] MEDS: SERTRALINE 50 MG TABLET. PO (08:02)
[2017-12-04] MEDS: PANTOPRAZOLE 40 MG TABLET.DR. PO (08:03)
[2017-12-04] MEDS: amLODIPine BESYLATE 5 MG TABLET PO (08:03)
[2017-12-04] MEDS: VITAMIN B COMPLEX TABLET. PO (08:03)
[2017-12-04] MEDS: FERROUS SULFATE 325 MG TABLET. PO (08:06)
[2017-12-04] MEDS: BACLOFEN 10 MG TABLET. PO (08:06)
[2017-12-04] MEDS: HYDROcodone/APAP 10/325 1 TAB TABLET PO ×2 (08:07→17:54)
[2017-12-04] MEDS: VANCOMYCIN 125 MG/2.5 ML ORAL SOLUTION. PO (08:07)
[2017-12-04] MEDS: LIDO:MAALOX:BENADRYL 1:1:1 180 ML BOTTLE. PO ×2 (10:03→21:17)
[2017-12-04] MEDS: MICAFUNGIN 100 MG in IV NORMAL SALINE 100ML 100 ML IV (16:12)
[2017-12-04] MEDS: TBO-FILGRASTIM 480 MCG/0.8 ML SYRINGE. SQ (21:00)
[2017-12-04] MEDS: ATORVASTATIN CALCIUM 10 MG TABLET. PO (21:16)
[2017-12-05] MEDS: HYDROcodone/APAP 10/325 1 TAB TABLET PO ×3 (05:57→20:33)
[2017-12-05] MEDS: CEFEPIME HCL IV Push 1 GM VIAL. IVP ×3 (05:58→22:19)
[2017-12-05 07:58] LABS: ADD MAN DIFF? NO
[2017-12-05] MEDS: PANTOPRAZOLE 40 MG TABLET.DR. PO (07:59)
[2017-12-05] MEDS: VITAMIN B COMPLEX TABLET. PO (08:01)
[2017-12-05] MEDS: TAMSULOSIN 0.4 MG CAP.ER.24H. PO (08:01)
[2017-12-05] MEDS: FERROUS SULFATE 325 MG TABLET. PO (08:01)
[2017-12-05] MEDS: amLODIPine BESYLATE 5 MG TABLET PO (08:02)
[2017-12-05] MEDS: SERTRALINE 50 MG TABLET. PO (08:02)
[2017-12-05] MEDS: ALPRAZolam 1 MG TABLET PO ×2 (08:04→22:38)
[2017-12-05 08:12] LABS: BASO % 1 % (0-3); EOS # 0.2 x10^3/uL (0.0-0.7); EOS % 23 % (0-3); HEMATOCRIT 25.2 % (39.0-53.0); HEMOGLOBIN 8.6 g/dL (13.0-17.5); LYMPH # 0.3 x10^3/uL (1.0-4.8); LYMPH % 26 % (24-48); MEAN CORPUSCULAR HEMOGLOBIN 29 pg (25-35); MEAN CORPUSCULAR HGB CONC 34 g/dL (31-37); MEAN CORPUSCULAR VOLUME 86 fL (79-100); MONO # 0.2 x10^3/uL (0.0-1.1); MONO % 23 % (0-9); NEUT # 0.3 x10^3uL (1.8-7.7); NEUT % 26 % (31-73); RED BLOOD COUNT 2.94 x10^6/uL (4.30-5.70); RED CELL DISTRIBUTION WIDTH 14.8 % (11.5-14.5)
[2017-12-05 08:19] LABS: PLATELET COUNT 21 x10^3/uL (140-400)
[2017-12-05] MEDS: BACLOFEN 10 MG TABLET. PO ×2 (14:00→20:33)
[2017-12-05] MEDS: LIDO:MAALOX:BENADRYL 1:1:1 180 ML BOTTLE. PO (18:58)
[2017-12-05] MEDS: ATORVASTATIN CALCIUM 10 MG TABLET. PO (20:33)
[2017-12-05] MEDS: TBO-FILGRASTIM 480 MCG/0.8 ML SYRINGE. SQ (21:00)
[2017-12-05] MEDS: ZOLPIDEM 5 MG TABLET. PO (22:35)
[2017-12-06] MEDS: CEFEPIME HCL IV Push 1 GM VIAL. IVP (06:13)
[2017-12-06] MEDS: HYDROcodone/APAP 10/325 1 TAB TABLET PO ×2 (07:04→15:00)
[2017-12-06] MEDS: SERTRALINE 50 MG TABLET. PO (09:00)
[2017-12-06] MEDS: TAMSULOSIN 0.4 MG CAP.ER.24H. PO (09:29)
[2017-12-06] MEDS: PANTOPRAZOLE 40 MG TABLET.DR. PO (09:29)
[2017-12-06] MEDS: BACLOFEN 10 MG TABLET. PO (09:29)
[2017-12-06] MEDS: FERROUS SULFATE 325 MG TABLET. PO (09:29)
[2017-12-06] MEDS: FLUTICASONE 50MCG/NASAL SPRAY 16GM BOTTLE. NS (09:30)
[2017-12-06] MEDS: VITAMIN B COMPLEX TABLET. PO (09:30)
[2017-12-06] MEDS: amLODIPine BESYLATE 5 MG TABLET PO (09:30)
[2017-12-06 10:52] LABS: ADD MAN DIFF? NO
[2017-12-06 10:57] LABS: BASO % 2 % (0-3); EOS # 0.3 x10^3/uL (0.0-0.7); EOS % 30 % (0-3); HEMATOCRIT 25.7 % (39.0-53.0); HEMOGLOBIN 8.9 g/dL (13.0-17.5); LYMPH # 0.3 x10^3/uL (1.0-4.8); LYMPH % 32 % (24-48); MEAN CORPUSCULAR HEMOGLOBIN 30 pg (25-35); MEAN CORPUSCULAR HGB CONC 35 g/dL (31-37); MEAN CORPUSCULAR VOLUME 86 fL (79-100); MONO # 0.2 x10^3/uL (0.0-1.1); MONO % 16 % (0-9); NEUT # 0.2 x10^3uL (1.8-7.7); NEUT % 21 % (31-73); RED CELL DISTRIBUTION WIDTH 15.1 % (11.5-14.5)
[2017-12-06 11:04] LABS: PLATELET COUNT 18 x10^3/uL (140-400); WHITE BLOOD COUNT 1.1 x10^3/uL (4.0-11.0)
[2017-12-06 11:12] LABS: ALBUMIN 2.5 g/dL (3.4-5.0); ALBUMIN/GLOBULIN RATIO 0.5 (1.0-1.7); ALK PHOS 74 U/L (46-116); ALT (SGPT) 29 U/L (16-63); ANION GAP 8 (6-14); AST (SGOT) 23 U/L (15-37); BLOOD UREA NITROGEN 15 mg/dL (8-26); BUN/CREATININE RATIO 13 (6-20); CALCIUM 8.4 mg/dL (8.5-10.1); CARBON DIOXIDE 27 mmol/L (21-32); CHLORIDE 102 mmol/L (98-107); CREATININE 1.2 mg/dL (0.7-1.3); GFR 72.6; GLUCOSE 151 mg/dL (70-99); POTASSIUM 4.3 mmol/L (3.5-5.1); SODIUM 137 mmol/L (136-145); TOTAL BILIRUBIN 0.5 mg/dL (0.2-1.0); TOTAL PROTEIN 7.7 g/dL (6.4-8.2)
[2017-12-06] MEDS: ALPRAZolam 1 MG TABLET PO (15:00)
[2017-12-06 15:53] LABS: TYPE AND SCREEN 1 1
[2017-12-06 17:01] LABS: ADD MAN DIFF? NO
[2017-12-06 17:07] LABS: BASO % 1 % (0-3); EOS # 0.2 x10^3/uL (0.0-0.7); EOS % 25 % (0-3); HEMATOCRIT 23.3 % (39.0-53.0); LYMPH # 0.3 x10^3/uL (1.0-4.8); LYMPH % 35 % (24-48); MEAN CORPUSCULAR HEMOGLOBIN 29 pg (25-35); MEAN CORPUSCULAR HGB CONC 34 g/dL (31-37); MEAN CORPUSCULAR VOLUME 85 fL (79-100); MONO # 0.1 x10^3/uL (0.0-1.1); MONO % 17 % (0-9); NEUT # 0.2 x10^3uL (1.8-7.7); NEUT % 22 % (31-73); RED BLOOD COUNT 2.74 x10^6/uL (4.30-5.70); RED CELL DISTRIBUTION WIDTH 14.8 % (11.5-14.5)
[2017-12-06 17:13] LABS: WHITE BLOOD COUNT 0.8 x10^3/uL (4.0-11.0)
[2017-12-06 17:14] LABS: PLATELET COUNT 48 x10^3/uL (140-400)
[2017-12-06] MEDS: HEPARIN PF 500 UNIT/5 ML DISP.SYRIN. IV (18:09)
== END 2017-12-06 18:00 | disposition home health service (06) | DRG 871 ==
LOC: ER 19:28 → 5 SOUTH 20:54
PROVIDERS: Internal Medicine
PROC: 30233R1 Transfusion of Nonautologous Platelets into Peripheral Vein, Percutaneous Approach (ICD-10-PCS; principal; 2017-11-21)
PROC: 30233N1 Transfusion of Nonautologous Red Blood Cells into Peripheral Vein, Percutaneous Approach (ICD-10-PCS; 2017-11-21)
DX: A41.9 Sepsis, unspecified organism (principal); J18.9 Pneumonia, unspecified organism; C92.00 Acute myeloblastic leukemia, not having achieved remission; D61.818 Other pancytopenia; E44.0 Moderate protein-calorie malnutrition; K21.9 Gastro-esophageal reflux disease without esophagitis; I10 Essential (primary) hypertension; E78.00 Pure hypercholesterolemia, unspecified; M19.90 Unspecified osteoarthritis, unspecified site; T45.1X5A Adverse effect of antineoplastic and immunosuppressive drugs, initial encounter; F32.9 Major depressive disorder, single episode, unspecified; E78.5 Hyperlipidemia, unspecified; D69.59 Other secondary thrombocytopenia; G89.29 Other chronic pain; Z66 Do not resuscitate; Z82.3 Family history of stroke; Z82.49 Family history of ischemic heart disease and other diseases of the circulatory system; Z83.3 Family history of diabetes mellitus; Z86.19 Personal history of other infectious and parasitic diseases; Z68.23 Body mass index [BMI] 23.0-23.9, adult
CPT/HCPCS: 36415; 70450; 70486; 71045; 71046; 71250; 80048; 80053; 80202; 81001; 82565; 83605; 84145; 85007; 85025; 85610; 86644; 86645; 86663; 86664; 86850; 86900; 86901; 86920; 87040; 87070; 87205; 87324; 87385; 87449; 87633; 93005; 96365; 97110-GP; 97116-GP; 97162-GP; 97165-GO; 97530-GP; 99285; 99285-25; 99406; J0692; J1442; J2020; J2185; J2248; J2997; J3370; J7030; J7050; P9016; P9035; Q0163